=== PATIENT | male | born 1960 | race Caucasian/White ===

== ENCOUNTER 2023-11-14 22:56 | Inpatient (IN) | payer OTHER, SELFPAY ==
[2023-11-14] VITALS (7 sets, daily range): BP systolic 105–158; BP diastolic 73–114
[2023-11-14 15:32] LABS: % Basophils 1.9 % (0-2); % Eosinophils 1.4 % (0-6); % Immature Granulocytes 0.3 % (0-0.5); % Lymphocytes 30.1 % (20.5-51.1); % Monocytes 13.1 % (1.7-9.3); % Neutrophils 53.2 % (42.2-75.2); Absolute Basophils 0.1 10^3/uL (0-0.2); Absolute Eosinophils 0.1 10^3/uL (0-0.7); Absolute Lymphocytes 1.7 10^3/uL (1.2-3.4); Absolute Monocytes 0.8 10^3/uL (0.1-0.6); Absolute Neutrophils 3.1 10^3/uL (1.4-6.5); Hematocrit 36.6 % (39.0-52.0); Hemoglobin 12.9 g/dL (13.0-18.0); Mean Corp Hgb Conc. 35.2 g/dL (33.0-37.0); Mean Corpuscular Hgb 34.6 pg (27.0-31.0); Mean Corpuscular Volume 98.1 fL (80.0-94.0); Mean Platelet Volume 8.9 fL (7.4-10.4); Nucleated Red Blood Cells % 0 % (-); Platelet Count 209 10^3/uL (130-400); Red Blood Cell Count 3.73 10^6/uL (4.70-6.10); Red Cell Dist. Width 13.4 % (11.5-14.5); White Blood Cell Count 5.7 10^3/uL (4.8-10.8)
[2023-11-14 15:51] LABS: ALT (SGPT) 58 U/L (0-50); AST (SGOT) 106 U/L (17-59); Albumin 4.7 g/dl (3.5-5.0); Alkaline Phosphatase 93 U/L (38-126); Blood Urea Nitrogen 7 mg/dl (9-20); Calcium 9.2 mg/dl (8.4-10.2); Carbon Dioxide 18 mmol/L (22-30); Chloride 105 mmol/L (98-107); Glucose 161 mg/dl (70-99); Potassium 3.9 mmol/L (3.5-5.1); Sodium 144 mmol/L (135-145); Total Bilirubin 0.5 mg/dl (0.2-1.3); Total Protein 8.3 g/dl (6.3-8.2); eGFR > 60.00
[2023-11-14 16:32] LABS: Alcohol 429 mg/dl
--- NOTE | 2023-11-14 17:02 | ED.GENMED ---
History of Present Illness
General
Chief Complaint: Alcohol Problem
Source: patient and family
Exam Limitations: none
Time Seen by Provider: 11/14/23 16:49
Nursing documentation reviewed up to this point in time: agreed with
History of Present Illness
History of Present Illness:
63 yo male presents emergency department due to alcohol abuse. He is getting evicted from his apartment today, and has been drinking more to cope with stress. He is a chronic alcoholic. He arrives with his brother. He also complains of chronic
back pain.
Past History
Past History
ED Past Medical History: Psychiatric (anxiety)
ED Past Surgical History: None
Social History
Tobacco: Smoker (cigars)
Alcohol: Occasional
Drug: Marijuana
Living: with family
Review of Systems
Review of Systems
Allergies reviewed?: Yes
All Other Systems: Not applicable
Constitutional: Reports no symptoms
EENT: Reports no symptoms
Respiratory: Reports no symptoms
Cardiac: Reports no symptoms
ABD/GI: Reports no symptoms
: Reports no symptoms
Musculoskeletal: Reports back pain
Skin: Reports no symptoms
Neurological: Reports no symptoms
Endocrine: Reports no symptoms
Hematologic/Lymphatic: Reports no symptoms
Psychiatric: Reports anxiety
Phy Exam
Physical Exam
Physical Exam:
Physical Exam
General: Intoxicated, afebrile
Neck: supple. no meningeal signs. normal posterior pharynx
Heart: s1/s2 regular rate and rhythm, no murmur. equal radial
pulses.
HEENT: Pupils equal round reactive to light, EOMI
Lungs: no acute respiratory distress. clear bilaterally
Abdomen: normal bowel sounds. not tender. no CVAT
Neuro: alert and oriented. no focal neurological deficits cranial nerves II through XII intact
Skin: no rash
Psychiatric: well kept. interactive and cooperative
Extremities: no edema. no calf tenderness. negative homans. good distal pulses
Scores
Withdrawal Assessment of Alcohol
Withdrawal Assessment Completed?: Yes
Nausea and Vomiting: No nausea and no vomiting
Tactile Disturbances: Very mild itching, pins and needles, burning or numbness
Tremor: Moderate, with patient's arms extended
Auditory Disturbances: Not present
Paroxysmal Sweats: No sweat visible
Visual Disturbances: Not present
Anxiety: Moderately anxious, or guarded, so anxiety is inferred
Headache, Fullness in Head: Not present
Agitation: Moderately fidgety and restless
Orientation and clouding of sensorium: Oriented and can do serial additions
Total CIWA Score: 13
Alcohol Withdrawal Medication Recommendation: Equal to MSAS Score 5-7. Lorazepam 1mg IV or PO NOW & re-assess q2hrs
Course
Orders/Labs/Results
Orders:
Orders
11/14/23 15:22
Alcohol Urgent
CBC/With Diff [Complete Blood Count/With Diff] Urgent
CMP [Comprehensive Metabolic Panel] Urgent
11/14/23 17:07
Ketorolac [Toradol] 15 mg IV NOW STA
11/14/23 17:09
0.9% Sodium Chloride 1000 ml [Nss] 1,000 ml IV BOLUS
11/14/23 19:35
Lorazepam [Ativan] 1 mg IV NOW STA
11/14/23 21:26
CT Head W/o Iv Contrast Urgent
Comment:
Reason For Exam: falls
11/14/23 22:45
Admit/Transfer Patient As Directed
Co-Sign Provider:
Level of Care: Inpatient admission
Assign to:: Telemetry
Physician / Group: Alida
Diagnosis: Alcohol Withdrawal
Reason for Telemetry: Arrhythmia
Date to Stop Telemetry: 11/17/23
Time to Stop Telemetry: 11:00
Reason for Hospitalization: IVFs, alcohol withdrawal protocol
Expected length of stay greater than two midnights?: Yes
ELOS- Estimated Length of Stay in days: 3
I certify the patient meets the requirements for IP care: Yes
Code Status As Directed
Resuscitation Status: Full Code
PRN Pain Medication Management As Directed
May give lesser potent ordered pain med per pt: Yes
preference::
Protocol:: Medication orders for pain may be administered in a
manner that supports deferring to patient preference
when the pt is:
- Requesting an ordered lesser potent pain medication.
Least to most potent pain medications are defined
as: acetaminophen < NSAID < tramadol < opioids
(morphine, oxycodone, hydromorphone).
- Requesting a lesser dose of the same medication IF
ORDERED.
- Requesting a less intrusive route of administration
if both routes are prescribed by the provider (PO <
IV).
11/17/23 11:00
DC Protocol for Telemetry ONCE
Abnormal Lab Results
11/14/23
15:22
RBC 3.73 L 10^6/uL
(4.70-6.10)
Hgb 12.9 L g/dL
(13.0-18.0)
Hct 36.6 L %
(39.0-52.0)
MCV 98.1 H fL
(80.0-94.0)
MCH 34.6 H pg
(27.0-31.0)
Absolute Monos (auto) 0.8 H 10^3/uL
(0.1-0.6)
Monocytes % 13.1 H %
(1.7-9.3)
Carbon Dioxide 18 L mmol/L
(22-30)
BUN 7 L mg/dl
(9-20)
Glucose 161 H mg/dl
(70-99)
AST 106 H U/L
(17-59)
ALT 58 H U/L
(0-50)
Total Protein 8.3 H g/dl
(6.3-8.2)
Alcohol, Quantitative 429 H* mg/dl
11/14/23 15:22
11/14/23 15:22
Vital Signs
Initial and Last Documented VS:
Initial Vital Signs
Temp Pulse Resp BP Pulse Ox
98.5 F 114 19 148/114 98
11/14/23 15:07 11/14/23 15:07 11/14/23 15:07 11/14/23 15:07 11/14/23 15:07
Last Documented Vital Signs
Temp Pulse Resp BP Pulse Ox
98.5 F 0 18 115/91 93
11/14/23 15:07 11/14/23 20:45 11/14/23 20:15 11/14/23 21:00 11/14/23 21:45
MDM/Problems Addressed
Differential Diagnosis Includes:
Alcohol withdrawal, head injury
MDM/Problems Addressed:
63-year-old male with alcohol intoxication high risk for alcohol withdrawal. Admit to hospitalist.
*Pulse Oximetry
Patient hypoxic: no
*Dumpster Operator Interpretation
Rate: normal
Interpretation: normal
Heart Rate: 92
Rhythm: sinus
*Critical Care Note
Total Time (30-74mins, 75-104mins- exclusive of procedures): Not Applicable
Patient Management
Social determinants of health affecting care: Living situation and Substance abuse
Discussion with other providers: Hospitalist
Escalation/DeEscalation of care consider admission/obs:
Admit indicated
ED Attending Note
-
Portions of this chart may have been created with voice recognition software.� Occasional wrong word or��sound alike� substitutions may have occurred due to the inherent limitations of voice recognition software.
Discharge Plan
Departure
Patient Disposition: Admit
Date of Disposition: 11/14/23
Time of Disposition: 22:29
Admit to: IMU
Presentation/result/management discussed w/ accepting MD/DO: Hospitalist
Patient with high blood pressure during this ER visit?: Yes
Condition: Fair
Discharge Problem:
Alcohol intoxication, Adult failure to thrive
Prescriptions:
No Action
diazepam 5 MG tablet
5 mg PO TIDPRN PRN (Reason: muscle spasm) Qty: 12 0RF
Referrals:
NONE,* [Family Provider] -
Interventions
Interventions:
*Risk Screen - Suicide Last Done: 11/14/23 15:07
*General Assessment Last Done: 11/14/23 15:07
*Neglect/Abuse Screening Last Done: 11/14/23 19:26
*ED COVID-19 Vaccine History Last Done: 11/14/23 19:26
ED- Neurological Assessment Last Done: 11/14/23 19:26
ED-Psychological Assessment Last Done: 11/14/23 19:26
Discharge Date and Time
Print Language: KINYARWANDA
[2023-11-14] MEDS: TORADOL 15 MG IV (17:18)
[2023-11-14] MEDS: NSS 1000 IV (17:19)
[2023-11-14] MEDS: ATIVAN 1 MG IV (19:43)
--- NOTE | 2023-11-14 22:50 | EDRN ---
false read for pulse
--- NOTE | 2023-11-14 23:05 | HPS.HSE ---
Family Physician
-
Family Physician: * NONE
Chief Complaint
-
Alcohol Problem
History of Present Illness
Pt is a 63 yo M with H alcohol use disorder and anxiety who presents for alcohol use disorder. Pt admits to accelerated drinking over the past month to cope with stress and manage anxiety. He admits to 6-8 beers (8.0% ABV) Daily +/- bottles of
[place] for the past 2-3 years. He reports frequent withdrawal symptoms that start around 3 AM whic prompt him to get up to have a drink. He admits to tinnitus and 'hearing songs in head' throughout the day. He states his last drink was around
12PM today. Pt also reports he was evicted from apartment today. Brother states he was with the pt last night to help pack and the pt does not recall events from yesterday. Patient has never been to alcohol rehab before and denies prior attempt to
quit.
Medical History
Past Medical History
Past Medical History: Reports Other
Additional Past Medical History:
Anxiety
Alcohol Use Disorder
Past Surgical History: Reports None
Social History
Tobacco: Other (Occasional Cigarette)
Alcohol: Daily (6-8 8% ABV Beers per day, plus additional moonshine)
Drug: Marijuana (Daily)
Living: Other (Patient recently evicted from his apartment)
Family History
Family History: Not pertinent
Allergies / Home Medications
Allergies reflects when Allergies were last updated in [facility] app.
Home Medications with original date entered in [facility] app
Allergy/Medication List:
Allergies
Allergy/AdvReac Type Severity Reaction Status Date / Time
No Known Allergies Allergy Verified 11/14/23 15:10
Home Medications
No Meds [No Current Medications] 11/14/23
Review of Systems
-
Unable to obtain full review of systems at this time due to: Acuity
Physical Exam
Vital Signs
Vital Signs
Temp Pulse Resp BP Pulse Ox
98.5 F 83 18 115/91 93
11/14/23 15:07 11/14/23 22:50 11/14/23 20:15 11/14/23 21:00 11/14/23 21:45
Physical Exam
General: Conversant and Other (Appears unkempt )
HEENT: Anicteric, Moist mucous membranes and Other (Poor dentition)
Respiratory: Clear and Non Labored Respirations
Cardiac: S1/S2 and Regular Rhythm
GI: Soft and Non Tender
Rectal: Deferred by Provider
Musculoskeletal: No Clubbing, No Cyanosis and No Edema
Skin: Warm and Dry
Neuro: Awake, Alert, Oriented, No Motor Deficits and Tremors
Psych: Calm
Laboratory Results
-
11/14/23 15:22
11/14/23 15:22
Laboratory Results
Total Bilirubin 0.5 mg/dl (0.2-1.3) 11/14/23 15:22
AST 106 U/L (17-59) H 11/14/23 15:22
ALT 58 U/L (0-50) H 11/14/23 15:22
Alkaline Phosphatase 93 U/L (38-126) 11/14/23 15:22
Data Reviewed
-
Lab Data: Labs Reviewed by me
Impression/Plan
-
Alcohol Use Disorder / Alcohol Withdrawal Syndrome
-Patient reports prior episodes of delirium tremens and withdrawal seizures
-Admit to ICU for close monitoring and high risk of severe withdrawal symptoms
-Monitor MSAS
-Continue phenobarbital taper
-Continue Ativan prn
-Continue thiamine and folic acid
DVT proph: Lovenox
Code Status: Full Code
--- NOTE | 2023-11-14 23:32 | W.PN.UPDATE ---
Update Note
Progress Note Update
This is an addendum to the H&P written by Mary Payne on 11/14/2023. Patient seen and examined independently with PA.
63-year-old male past medical history of alcohol use disorder, alcohol withdrawal seizures, anxiety here for heavy alcohol use and signs of alcohol withdrawal. Alcohol level 429. Very high risk for DT. IV fluids, thiamine and folate, alcohol
withdrawal protocol, phenobarbital protocol.
[2023-11-14] MEDS: PHENOBARBITAL 104 MG IV (23:48)
[2023-11-15] VITALS (29 sets, daily range): BP systolic 111–174; BP diastolic 78–104
[2023-11-15] MEDS: ATIVAN 1 MG PO ×2 (02:21→06:09)
[2023-11-15] MEDS: NSS 1000 IV ×3 (02:30→22:57)
--- NOTE | 2023-11-15 02:30 | PTCARENOTE ---
Received pt from the ED; pt AAOx3, but forgetful and participates in confused conversation. Pt states he knows he is at [facility] but does not know why. Pt is visibly anxious/tearful/restless. Emotional support provided. NSR on the
monitor, HR 80's, lungs clear, SpO2 96% on RA. Remainder of assessment as documented. MSAS complete per protocol, PRN Ativan given per order, see MAR. Admission completed, pt admits to methamphetamine and cocaine use within the last month, COWS
complete with a score of 13, DIGITAL BUSINESS ANALYST notified. Pt scored moderate risk on suicide screening; pt reports suicidal with a plan, states his plan is 'spontaneity; whatever I can get my hands on at the time'. Pt states he is in a very low place, is in the
process of being evicted from his apartment and has been drinking more to cope with the stressors in his life, admits active SI. DIGITAL BUSINESS ANALYST and nursing supervisor plate pasting notified, 1:1 initiated. Pt oriented to unit, call sinha and purpose of 1:1 sitter[address] Bed alarm
in place for safety. Pt resting comfortably at this time with intermittent periods of restlessness.
[2023-11-15] MEDS: ATIVAN 2 MG IV ×7 (04:11→21:08)
[2023-11-15] MEDS: NSS (PRESERVATIVE FREE) 1 ML IV ×5 (04:12→16:47)
--- NOTE | 2023-11-15 04:28 | PTCARENOTE ---
Pt restless in bed tugging at the gown. When offered assistance pt states he has to go to the bathroom. Pt assist x1 to bedside commode, +urination and diarrhea. Pt with incontinent stool to underwear/pants. Hygiene performed. Upon getting back in
bed, MSAS score 12, PRN Ativan per protocol, see MAR.
[2023-11-15 05:04] LABS: Hematocrit 32.3 % (39.0-52.0); Hemoglobin 11.3 g/dL (13.0-18.0); Mean Corpuscular Hgb 34.7 pg (27.0-31.0); Mean Corpuscular Volume 99.1 fL (80.0-94.0); Mean Platelet Volume 9.3 fL (7.4-10.4); Platelet Count 178 10^3/uL (130-400); Red Blood Cell Count 3.26 10^6/uL (4.70-6.10); Red Cell Dist. Width 13.4 % (11.5-14.5); White Blood Cell Count 6.1 10^3/uL (4.8-10.8)
[2023-11-15 05:14] LABS: INR 1.13; PT 14.3 Sec (11.4-14.6)
[2023-11-15 05:15] LABS: APTT 31.4 Sec (23.4-35.0)
[2023-11-15 06:33] LABS: ALT (SGPT) 50 U/L (0-50); AST (SGOT) 73 U/L (17-59); Albumin 4.2 g/dl (3.5-5.0); Alkaline Phosphatase 87 U/L (38-126); Blood Urea Nitrogen 6 mg/dl (9-20); Calcium 8.3 mg/dl (8.4-10.2); Carbon Dioxide 23 mmol/L (22-30); Chloride 107 mmol/L (98-107); GGTP 263 U/L (15-73); Glucose 90 mg/dl (70-99); Magnesium 1.5 mg/dl (1.6-2.3); Phosphorus 3.1 mg/dl (2.5-4.5); Potassium 3.8 mmol/L (3.5-5.1); Sodium 142 mmol/L (135-145); Total Protein 7.5 g/dl (6.3-8.2); eGFR > 60.00
[2023-11-15] MEDS: ATIVAN 1 MG IV ×6 (07:13→23:28)
[2023-11-15] MEDS: PHENOBARBITAL 97.5 MG IV ×3 (07:15→20:21)
[2023-11-15] MEDS: THIAMINE INJECTION 200 MG IV ×2 (07:17→20:25)
[2023-11-15] MEDS: FOLVITE 1 MG PO (07:18)
--- NOTE | 2023-11-15 07:21 | PTCARENOTE ---
06:45 patient seen in bed . MSAS 11 RASS +1 /restless. BP via left upper arm 158/101 SR 81 RR 22 96% RA . Denies pain . c/o of nausea. Ativan per protocol for MSAS 11 adm . 1:[address] for pt's safety
--- NOTE | 2023-11-15 07:31 | W.PN.HOSP.TC ---
Addendum entered and electronically signed by Kayleigh Raymond MD 11/15/23 08:32:
Pt on one to one due to suicide ideation.
Psych CS placed for suicide ideation.
Original Note:
Today's Communication/Plan
-
see A/P
Assessment / Plan
Assessment / Plan
HPI: 63 yo M with PMH alcohol use disorder and anxiety who presented for alcohol use disorder. Pt admited to accelerated drinking over the past month to cope with stress and manage anxiety (6-8 beers 8.0% ABV Daily +/- bottles of [place] for the
past 2-3 years). He reported frequent withdrawal symptoms which prompted him to get up to have a drink. He admitted to tinnitus and 'hearing songs in head' throughout the day.
Last drink was around 12PM of DOA. Pt was evicted from his apartment on [place]A.
Patient has never been to alcohol rehab before and denies prior attempt to quit.
A/P:
# Alcohol Use Disorder / Alcohol Withdrawal Syndrome/ development of delirium tremens
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
# h/o prior episodes of delirium tremens and withdrawal seizures
Alcohol level 400 on admission
Monitor MSAS with Ativan prn, cont phenobarbital taper
Continue thiamine and folic acid
Monitor in ICU
CS to facilitate warm handoff (alcohol counselling) CS
# Hypomagnesemia
replete lyte
# Dilutional anemia
DVT proph: Lovenox
Code Status: Full Code
DW RN
Anticipated Discharge: > 48 hours
Subjective/Interval History
-
Date of Service: November 15, 2023
Objective Data
-
Labs:
Laboratory Results
11/15/23 11/15/23
04:41 05:59
WBC 6.1
Hgb 11.3 L
Hct 32.3 L
Plt Count 178
PT 14.3
INR 1.13
APTT 31.4
Sodium Cancelled 142
Potassium Cancelled 3.8
Chloride Cancelled 107
Carbon Dioxide Cancelled 23
BUN Cancelled 6 L
Creatinine Cancelled 0.7
Glucose Cancelled 90
Calcium Cancelled 8.3 L
Total Bilirubin Cancelled 1.0
AST Cancelled 73 H
ALT Cancelled 50
Alkaline Phosphatase Cancelled 87
Vital Signs:
Vital Signs
Temp Pulse Resp BP Pulse Ox
36.9 C 87 17 174/99 93
11/15/23 03:10 11/15/23 06:15 11/15/23 06:15 11/15/23 06:02 11/15/23 06:15
I&O
11/14/23 11/15/23 11/16/23
06:59 06:59 06:59
Intake Total 470 / 470
Balance 470 / 470
Review of Systems
-
Unable to obtain full review of systems at this time due to: Acuity
Physical Exam
-
General: Well Developed, Well Nourished, No Apparent Distress and Comfortable; Negative Respiratory Distress
HEENT: Normocephalic, Atraumatic, Nose Appears Normal and Ears Appear Normal; Negative Oxygen
Respiratory: Clear to Auscultation and Non Labored Respirations; Negative Accessory Resp Muscle Use
Cardiac: Regular Rhythm and S1/S2
GI: Soft, Nontender, Nondistended and Normal Bowel Sounds
Skin: Warm and Dry
Neuro: Negative Awake (drowsy due to ativan given)
Psych: Calm
Data Reviewed
-
CT Scan: Report Reviewed by me
Labs: Labs Reviewed by me
[2023-11-15] MEDS: MAGNESIUM SULFATE 50 IV (08:33)
--- NOTE | 2023-11-15 08:51 | CON.INTV ---
Consultation
Consultation Request
Date/Time Consultation Requested: 11/15/2023207
Date/Time Consultation Performed: 11/15/2023846
Requesting Provider: RBITNEY Prabhakar
Performing Provider: Nikita Leach MD
Reason for Consultation: EtOH withdrawal
Medical History
-
Chief Complaint: Alcohol abuse/withdrawal
History of Present Illness:
63-year-old male occasional tobacco smoker with a past medical history of chronic alcoholism, chronic diarrhea, anxiety/depression and history of Lyme disease who presents with family for alcohol detoxification. He admits to increasing alcohol use
over the last month to cope with stress/anxiety. Drinks 6�8 beers per day in addition to moonshine for the last several years. Admits to feeling withdrawal symptoms in the middle the night which prompted him to drink. He was evicted from his
apartment on the day of hospital admission. 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 In the ER he was afebrile to 98.5 �F, tachycardic to 114 bpm, tachypneic at 19-26 breaths/min, BP 148/114 and saturating 98% on room air. Alcohol level was 429. Labs also
showed serum bicarbonate level 18, glucose 161, AST 106, and ALT 58. Initial CT head showed no acute intracranial abnormality. He was given Toradol in the ER + Ativan and 1 L NS 0.9% x1L. Given his tachycardia with concern for severe alcoholic
withdrawal, he was admitted to the ICU for further care, and critical care services consulted for additional management/recommendations.
When I saw the patient this morning, he was in bed, shaky, but answering questions appropriately. MSAS is 11 this morning. He is on room air breathing comfortably, saturating 94%. Heart rate 89. BP 140/97. He denies chest pain, shortness of
breath or abdominal pain.
PMHx: Chronic alcoholism, history of insomnia, history of Lyme disease, hypertension, anxiety/depression, chronic diarrhea
PSHx: Noncontributory
Past Medical History
Past Medical History: Other (Above as per HPI)
Past Surgical History: Other (Above as per HPI)
Social History
Tobacco: Smoker (Smokes 1-2 cigarettes occasionally)
Alcohol: Chronic Alcoholic (6-8 beers per day)
Drug: None
Living: Alone
Employment: Employed ([employer] - part-time)
Family History
Family History: Diabetes (Mother)
Allergies / Home Medications
Allergies
Allergy/AdvReac Type Severity Reaction Status Date / Time
No Known Allergies Allergy Verified 11/14/23 15:10
Home Medications
�Medication �Instructions �Recorded �Confirmed �Last Taken �Type
No Meds [No Current Medications] 11/14/23 11/14/23 Unknown History
Review of Systems
-
History Source: Patient
All other systems: Negative unless noted
Vitals / Labs / Diagnostic Testing
Vital Signs
Temp Pulse Resp BP Pulse Ox
98.0 F 87 17 174/99 93
11/15/23 08:00 11/15/23 06:15 11/15/23 06:15 11/15/23 06:02 11/15/23 06:15
Lab Data
11/15/23 04:41
11/15/23 05:59
Laboratory Results
11/15/23
04:41
PT 14.3
INR 1.13
APTT 31.4
Diagnostic Testing:
Physical Exam
-
HEENT: Normocephalic and Anicteric
Cardiovascular: S1/S2 and Peripheral Edema (negative)
Respiratory: Wheeze (negative), Rales (negative), Rhonchi (negative) and Non-Labored Respirations
GI: Soft, Non Distended, Non Tender and Normal Bowel Sounds
Neurology: Awake, Alert, Tremors (positive mainly in upper body/arms) and Other
Skin: Warm and Dry
General: Respiratory Distress (negative), Chills (negative) and Sweats (negative)
Assessment
-
Assessment: 63-year-old male occasional tobacco smoker with a past medical history of chronic alcoholism, chronic diarrhea, anxiety/depression and history of Lyme disease who presents with family for alcohol detoxification. He admits to increasing
alcohol use over the last month to cope with stress/anxiety. Drinks 6�8 beers per day in addition to moonshine for the last several years. Admits to feeling withdrawal symptoms in the middle the night which prompted him to drink. He was evicted
from his apartment on the day of hospital admission. 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 In the ER he was afebrile to 98.5 �F, tachycardic to 114 bpm, tachypneic at 19-26 breaths/min, BP 148/114 and saturating 98% on room air. Alcohol level was 429. Labs
also showed serum bicarbonate level 18, glucose 161, AST 106, and ALT 58. Initial CT head showed no acute intracranial abnormality. He was given Toradol in the ER + Ativan and 1 L NS 0.9% x1L. Given his tachycardia with concern for severe
alcoholic withdrawal, he was admitted to the ICU for further care, and critical care services consulted for additional management/recommendations.
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
Impression:
#Chronic alcoholism with acute alcoholic withdrawal (BAL: 429 on admission)
#Hypomagnesemia
#Transaminitis likely due to alcohol abuse
#Anemia
#Tobacco use disorder
#History of hypertension
Plan:
- MSAS with phenobarbital protocol
- prn ativan
- Thiamine + folate/MVN
- IVF with NS 0.9% at 100cc/hr --> can DC this once he is tolerating PO diet
- Trend LFTs
- If he becomes agitated then start Precedex gtt
- Nicotine patch
- Maintain SpO2 >90-94%
- Maintain MAP>65
- Replete electrolytes with K>4, Mg>2
- Maintain euglycemia with goal BG 140-180
- prn nebulized bronchodilators � not currently bronchospastic
- Incentive spirometer encouraged
- DVT ppx: LMWH
Continue ICU level care.
Critical care statement: A total of 40 minutes of critical care time was provided for this patient today. This includes management of unstable vital signs, evaluation of the patient at bedside, reviewing the patient's pertinent medical records
including radiographs, microbiology, laboratory evaluations, and discussion with primary team, consultants, pharmacy, nutrition, physical therapy, case management, charge nurse, critical care nursing, and respiratory therapy.
Data:
CT head 11/14/2023: No evidence of acute intracranial abnormality.
--- NOTE | 2023-11-15 12:07 | CM ---
CM reviewed medical records. CM attempted to meet with patient. Patient was sleeping and difficult to arouse. As per review of medical record, patient presented to emergency room after being evicted from his apartment. Patient reported increase use
of alcohol.
CM expressed suicidal ideations and is currently on a 1:1
CM will continue to follow.
--- NOTE | 2023-11-15 14:41 | PTCARENOTE ---
MSAS 11 Ativan adm per PRN order . Visible tremors . pt AAO x3 Denies pain and nausea. Denies to having suicidal thoughts bed alarm activated for pt's safety
--- NOTE | 2023-11-15 16:30 | W.PN.UPDATE ---
Update Note
Progress Note Update
Psychiatry consulted for concerns of possible depression & SI - pt seen at bedside. Pt w/ hx of EtOH abuse and in withdrawal currently - MSAS 11 and on phenobarb taper started this AM, received several doses of PRN ativan throughout the day. Is not
meaningfully arousable though did recently receive a prn ativan dose.
Spoke to nursing - pt has had times of lucidity, did admit to etoh abuse and feeling down due to living alone and struggling with his addiction to EtOH. Made a statement phil to slowly killing himself with substances, however did not make statements
of acute suicidal plans or intent - has been cooperative thus far while here (when awake and more lucid).
Will need to be reassessed when more awake and lucid - discontinued 1:1 as pt is being monitored regularly while in unit and did not seem to give indication of acute suicidal intent, he is also in the early stages of EtOH w/d and requiring prn
ativan which is contributing to sedation so he is unlikely to meaningfully be a suicide risk at this current time
- once able to converse, will reassess for presence of SI/depression
[2023-11-15] MEDS: LOVENOX 40 MG SC (16:47)
[2023-11-15] MEDS: NICODERM TRANSDERMAL 7 MG TRANSDERM (18:05)
--- NOTE | 2023-11-15 20:00 | PTCARENOTE ---
rec`d pt at 1900. pt trying to climb out of bed. PRN ativan given. restraints then ordered. pt awake and oriented to location and name. MSAS continued. ST on monitor. POX 98% RA. incontinent an urine and BM, condom cath on pt. Ivs had to be
replaced. NS @ 100. safe environment maintained.
[2023-11-16] VITALS (15 sets, daily range): BP systolic 123–163; BP diastolic 82–125
[2023-11-16 04:26] LABS: Hemoglobin 13.5 g/dL (13.0-18.0); Mean Corp Hgb Conc. 35.5 g/dL (33.0-37.0); Mean Corpuscular Hgb 34.7 pg (27.0-31.0); Mean Corpuscular Volume 97.7 fL (80.0-94.0); Mean Platelet Volume 9.2 fL (7.4-10.4); Platelet Count 170 10^3/uL (130-400); Red Blood Cell Count 3.89 10^6/uL (4.70-6.10); Red Cell Dist. Width 12.5 % (11.5-14.5); White Blood Cell Count 7.7 10^3/uL (4.8-10.8)
[2023-11-16 04:45] LABS: ALT (SGPT) 47 U/L (0-50); AST (SGOT) 68 U/L (17-59); Albumin 4.3 g/dl (3.5-5.0); Alkaline Phosphatase 92 U/L (38-126); Blood Urea Nitrogen 5 mg/dl (9-20); Calcium 8.8 mg/dl (8.4-10.2); Carbon Dioxide 22 mmol/L (22-30); Chloride 102 mmol/L (98-107); Glucose 103 mg/dl (70-99); Magnesium 1.9 mg/dl (1.6-2.3); Potassium 3.5 mmol/L (3.5-5.1); Sodium 136 mmol/L (135-145); Total Bilirubin 1.7 mg/dl (0.2-1.3); eGFR > 60.00
[2023-11-16] MEDS: KCL 160 MEQ IV (06:26)
--- NOTE | 2023-11-16 07:37 | W.PN.HOSP.TC ---
Today's Communication/Plan
-
see A/P
Assessment / Plan
Assessment / Plan
HPI: 63 yo M with H alcohol use disorder and anxiety who presented for alcohol use disorder. Pt admitted to accelerated drinking over the past month to cope with stress and manage anxiety (6-8 beers 8.0% ABV Daily +/- bottles of [place] for the
past 2-3 years). He reported frequent withdrawal symptoms which prompted him to get up to have a drink. He admitted to tinnitus and 'hearing songs in head' throughout the day.
Last drink was around 12PM of DOA. Pt was evicted from his apartment on DOA.
Patient has never been to alcohol rehab before and denies prior attempt to quit.
A/P:
# Alcohol Use Disorder / Alcohol Withdrawal Syndrome/ Delirium tremens
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
# h/o prior episodes of delirium tremens and withdrawal seizures
CT head on admission showed No evidence of acute intracranial abnormality.
Alcohol level 400 on admission
Monitor MSAS with Ativan prn, cont phenobarbital taper
Continue thiamine and folic acid, cont IVF
NPO for now due to delirium, restraint PRN
Monitor in ICU
CS to facilitate warm handoff (alcohol counselling) CS when pt more awake
# Hypomagnesemia
replete lyte
# Dilutional anemia
DVT proph: Lovenox
Code Status: Full Code
DW RN
Anticipated Discharge: > 48 hours
Subjective/Interval History
-
Date of Service: November 16, 2023
Objective Data
-
Labs:
Laboratory Results
11/16/23
04:13
WBC 7.7
Hgb 13.5
Hct 38.0 L
Plt Count 170
Sodium 136
Potassium 3.5
Chloride 102
Carbon Dioxide 22
BUN 5 L
Creatinine 0.5 L
Glucose 103 H
Calcium 8.8
Total Bilirubin 1.7 H
AST 68 H
ALT 47
Alkaline Phosphatase 92
Vital Signs:
Vital Signs
Temp Pulse Resp BP Pulse Ox
37.0 C 92 21 125/101 98
11/16/23 03:11 11/16/23 06:15 11/16/23 06:15 11/16/23 06:00 11/16/23 06:15
I&O
11/15/23 11/16/23 11/17/23
06:59 06:59 06:59
Intake Total 470 / 570 2450 / 2450
Output Total 1850 / 1850
Balance 470 / 570 600 / 600
Review of Systems
-
Unable to obtain full review of systems at this time due to: Acuity
Physical Exam
-
General: Well Developed, Well Nourished, No Apparent Distress and Comfortable; Negative Respiratory Distress
HEENT: Normocephalic, Atraumatic, Nose Appears Normal and Ears Appear Normal; Negative Oxygen
Respiratory: Clear to Auscultation and Non Labored Respirations; Negative Accessory Resp Muscle Use
Cardiac: Regular Rhythm and S1/S2
GI: Soft, Nontender, Nondistended and Normal Bowel Sounds
Skin: Warm and Dry
Neuro: Negative Awake (drowsy)
Psych: Calm; Negative Intact Judgement/Insight
Data Reviewed
-
CT Scan: Report Reviewed by me
Labs: Labs Reviewed by me
--- NOTE | 2023-11-16 08:22 | W.PN.INTV ---
Today's Communication / Plan
Recommendations
4 point restraints, reducing to 2 point once patient is calm for at least 6-12 hours
MSAS with prn Ativan + phenobarbital protocol
Aspiration precautions keeping HOB >30-45�
IVF, however if patient continues to not be able to start PO tomorrow, then would insert DHT and start tube feeds
Folate/thiamine
Continue ICU level of care; pt with low threshold to start precedex
Assessment
-
Assessment: 63-year-old male occasional tobacco smoker with a past medical history of chronic alcoholism, chronic diarrhea, anxiety/depression and history of Lyme disease who presents with family for alcohol detoxification. He admits to increasing
alcohol use over the last month to cope with stress/anxiety. Drinks 6�8 beers per day in addition to moonshine for the last several years. Admits to feeling withdrawal symptoms in the middle the night which prompted him to drink. He was evicted
from his apartment on the day of hospital admission. 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 In the ER he was afebrile to 98.5 �F, tachycardic to 114 bpm, tachypneic at 19-26 breaths/min, BP 148/114 and saturating 98% on room air. Alcohol level was 429. Labs
also showed serum bicarbonate level 18, glucose 161, AST 106, and ALT 58. Initial CT head showed no acute intracranial abnormality. He was given Toradol in the ER + Ativan and 1 L NS 0.9% x1L. Given his tachycardia with concern for severe
alcoholic withdrawal, he was admitted to the ICU for further care, and critical care services consulted for additional management/recommendations.
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
Impression:
#Chronic alcoholism with acute alcoholic withdrawal (BAL: 429 on admission)
#Hypomagnesemia
#Transaminitis likely due to alcohol abuse
#Anemia
#Tobacco use disorder
#History of hypertension
Plan:
- MSAS with phenobarbital protocol
- prn ativan
- Thiamine + folate/MVN
- IVF with NS 0.9% at 100cc/hr --> can DC this once he is tolerating PO diet
- Trend LFTs
- If he becomes agitated then start Precedex gtt
- Nicotine patch
- Start Seroquel at night given he became agitated last night, requiring additional Ativan
- Continue 4 point restraints and reduce to 2 point restraints once nursing staff feels comfortable with his behavior and do not feel threatened
- Maintain SpO2 >90-94%
- Maintain MAP>65
- Replete electrolytes with K>4, Mg>2
- Maintain euglycemia with goal BG 140-180
- prn nebulized bronchodilators � not currently bronchospastic
- Incentive spirometer encouraged
- DVT ppx: LMWH
Continue ICU level care.
Critical care statement: A total of 37 minutes of critical care time was provided for this patient today. This includes management of unstable vital signs, evaluation of the patient at bedside, reviewing the patient's pertinent medical records
including radiographs, microbiology, laboratory evaluations, and discussion with primary team, consultants, pharmacy, nutrition, physical therapy, case management, charge nurse, critical care nursing, and respiratory therapy.
Data:
CT head 11/14/2023: No evidence of acute intracranial abnormality.
Subjective Dataa
Subjective Data
Date of Service:
Date of Service: November 16, 2023
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
Subjective:
Patient was seen and evaluated today at bedside. Reportedly became very agitated overnight, and is now on 4 point restraints. Currently appears sedated after getting multiple doses of Ativan overnight. Current heart rate 86, saturating 99% on
room air and BP 132/97. He was responsive to verbal and tactile stimuli but not answering questions.
Review of Systems
General: Other (Unable to obtain due to acute clinical status/patient is noncommunicating)
Objective Data
Data Reviewed
Vital Signs / I&O / Oxygen:
Vital Signs
Temp Pulse Resp BP Pulse Ox
96.6 F L 93 17 130/102 100
11/16/23 09:07 11/16/23 09:30 11/16/23 09:30 11/16/23 09:00 11/16/23 09:30
Intake and Output
11/15/23 11/16/23 11/17/23
06:59 06:59 06:59
Intake Total 470 / 570 2450 / 2550 400 / 400
Output Total 1850 / 1850 350 / 350
Balance 470 / 570 600 / 700 50 / 50
SaO2 100
Physical Exam
General: Respiratory Distress (negative), Comfortable, Chills (negative) and Sweats (negative)
HEENT: Normocephalic and Anicteric
Cardiovascular: S1-S2 and Peripheral Edema (negative)
Respiratory: Wheeze (negative), Crackles (negative), Rhonchi (negative) and Accessory Resp Muscle Use (negative)
GI: Soft, Non Distended, Non Tender and Normal Bowel Sounds
Neurology: Tremors (negative) and Unresponsive (Awakens to verbal/tactile stimuli but then falls back asleep)
Skin: Warm, Dry and Jaundice (negative)
Labs/Micro/Reports
Lab Data
11/16/23 04:13
11/16/23 04:13
[2023-11-16] MEDS: THIAMINE INJECTION 200 MG IV ×2 (09:12→20:17)
[2023-11-16] MEDS: PHENOBARBITAL 97.5 MG IV ×2 (09:13→15:24)
[2023-11-16] MEDS: NICODERM TRANSDERMAL 7 MG TRANSDERM (09:14)
[2023-11-16] MEDS: NSS 1000 IV ×2 (09:22→23:52)
--- NOTE | 2023-11-16 11:34 | W.PN.UPDATE ---
Update Note
Progress Note Update
Chart reviewed/ discussed pt status with nursing staff. Unable to speak to patient as he was not awake.
Acc to ICU nurse, pt became agiated lst night and tried to climb out of bed. Wa given Ativan and restraints were ordered. He has not voiced suicidal ideation when awake, acc to nurse.
Temp and BP are mildly elevated.
When I entered the room and called his name, pt briefly opened his eyes and said something, but immediately fell asleep again.
He is on alcohol withdrawal protocol- Phenobarb drip.
We will continue to follow.
[2023-11-16] MEDS: FOLVITE PO (12:28)
[2023-11-16] MEDS: FOLVITE 50.2 MG IV (12:28)
--- NOTE | 2023-11-16 14:45 | SUR.OPER ---
patient in bed. MSAS 4 RASS -1 VSS. Condom catheter draining clear vicente urine
[2023-11-16] MEDS: LOVENOX 40 MG SC (15:25)
--- NOTE | 2023-11-16 18:39 | PTCARENOTE ---
patient in bed. RASS -1 MSAS 4. VS stable . [address] HOB elevated
--- NOTE | 2023-11-16 19:45 | PTCARENOTE ---
Rec'd pt resting in bed, left facial droop noted, left sided weakness noted,slurred speech;unknown when last well time was due to pt lethargic today; NIH- 7, Inna Garcia NP in to assess pt, stat accu-83,
1949- Inna Garcia NP called neuro, stat CT ordered - to CT skan via bed on monitor accomp by self & Inna Garcia NP, after returned from CT scan stat phenobarb level drawn per order; per Inna Garcia NP- phenobarb on hold & seroquel dc'd
2049- Dr De Los Santos- neuro in to assess pt, at this time pts speech is less slurred, still has slight facial droop & left weaker than R
NSR, weak distal pulses, no edema, skin warm/slightly diaphoretic, RA, lungs decr in bases,sat 100, + bowel sounds, no bm, abd soft, npo, condom cath on- voiding yellow urine
[2023-11-16 20:01] LABS: Glucose - Point of Care 83 mg/dl (70-99)
--- NOTE | 2023-11-16 21:26 | W.PN.UPDATE ---
Update Note
Progress Note Update
1950- stroke alert called for left facial droop, slurred speech, drift left leg, needs multiple prompts to complete neurological assessment. NIH 7. Patient had received ativan due to agitation and MSAS last night and was 4 point restrainted due to
extreme agitation restlessness and flight risk/harm to himself. Today he had received phenobarb IV dosing 97.5mg IV TID last dose given at 1600 and was due to be given at 2[address]. [address] Pepe De Los Santos updated and concern with new left sided
facial droop and slurred speech, agreed with STAT ct scan of the head. Comptroller updated Dr. Leach. Patient transported to CTscan, radiologist preliminary report negative for acute intracranial abnormalities. Unclear when patient's last
normal, patient has been sedated throughout the day and difficult to assess. Dr. De Los Santos neurologist at bedside, concern for phenobarbital causing increased sedation. Patient speech more clear but still slurred, more awake, moving 4x extremities.
Will not initiate Seroquel this evening, will hold phenobarbital for now. Serum phenobarbital level send out lab, ordered. Cautious moving forward giving additional sedation.
--- NOTE | 2023-11-16 22:06 | PTCARENOTE ---
vital signs filed from 144 to now, unable to verify vs from 144 to 190
[2023-11-16] MEDS: LOPRESSOR 2.5 MG IV (22:13)
--- NOTE | 2023-11-16 22:14 | PTCARENOTE ---
lopressor 2.5 mg iv given for bp per order
--- NOTE | 2023-11-16 23:56 | PTCARENOTE ---
sys reviewed, oriented,following commands, speech slightly slurred, left side still weaker than R, CHG bath done, linens changed
[2023-11-17] VITALS (25 sets, daily range): BP systolic 112–157; BP diastolic 78–107; BMI 20.3
--- NOTE | 2023-11-17 01:35 | PTCARENOTE ---
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
[2023-11-17] MEDS: ATIVAN 1 MG IV ×3 (01:36→12:46)
[2023-11-17 03:30] LABS: Hematocrit 36.1 % (39.0-52.0); Hemoglobin 12.8 g/dL (13.0-18.0); Mean Corp Hgb Conc. 35.5 g/dL (33.0-37.0); Mean Corpuscular Hgb 34.3 pg (27.0-31.0); Mean Corpuscular Volume 96.8 fL (80.0-94.0); Mean Platelet Volume 9.7 fL (7.4-10.4); Platelet Count 170 10^3/uL (130-400); Red Blood Cell Count 3.73 10^6/uL (4.70-6.10); Red Cell Dist. Width 12.7 % (11.5-14.5)
[2023-11-17 03:52] LABS: ALT (SGPT) 40 U/L (0-50); AST (SGOT) 53 U/L (17-59); Alkaline Phosphatase 98 U/L (38-126); Blood Urea Nitrogen 8 mg/dl (9-20); Carbon Dioxide 15 mmol/L (22-30); Chloride 107 mmol/L (98-107); Glucose 89 mg/dl (70-99); Magnesium 1.8 mg/dl (1.6-2.3); Potassium 3.5 mmol/L (3.5-5.1); Sodium 139 mmol/L (135-145); Total Bilirubin 1.3 mg/dl (0.2-1.3); Total Protein 7.4 g/dl (6.3-8.2); eGFR > 60.00
--- NOTE | 2023-11-17 04:11 | PTCARENOTE ---
sys reviewed, speech not slurred, msas 5, trying to climb oob, Inna Garcia NP aware, ativan 1 mg ivm given
[2023-11-17] MEDS: MAGNESIUM SULFATE 102 GRAMS IV (04:29)
--- NOTE | 2023-11-17 04:30 | PTCARENOTE ---
1 gm mag sulfate hung over 1 hr per order
--- NOTE | 2023-11-17 08:22 | W.PN.HOSP.TC ---
Addendum entered and electronically signed by Jason Millan MD 11/17/23 15:25:
Acute alcohol use disorder with withdrawal. Continue thiamine folate CIWA protocol/minds score. Continue providing phenobarbital wean as tolerated along with benzodiazepines.
CVA like symptoms with left-sided facial droop dysarthria. With same.no focal neurological deficits noted on exam. 2/5 motor strength in bilateral lower extremities. For CT angiogram. Neurology to evaluate. Check A1c and lipid profile along
with 2D echo bubble study.
Suicidal ideations, not on a 302. Psychiatry to evaluate
Care management consulted for potential alcohol use resources
Original Note:
Today's Communication/Plan
-
Neurologic workup
Speech and swallow evaluation
Case management evaluation
Continue to monitor alcohol withdrawal, high risk phenobarbital taper with as needed Ativan
Assessment / Plan
Assessment / Plan
HPI: 63 yo M with H alcohol use disorder and anxiety who presented for alcohol use disorder. Pt admitted to accelerated drinking over the past month to cope with stress and manage anxiety (6-8 beers 8.0% ABV Daily +/- bottles of [place] for the
past 2-3 years). He reported frequent withdrawal symptoms which prompted him to get up to have a drink. He admitted to tinnitus and 'hearing songs in head' throughout the day.
Last drink was around 12PM of DOA. Pt was evicted from his apartment on DOA.
Patient has never been to alcohol rehab before and denies prior attempt to quit.
A/P:
# Alcohol Use Disorder / Alcohol Withdrawal Syndrome/ Delirium tremens
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
# h/o prior episodes of delirium tremens and withdrawal seizures
CT head on admission showed No evidence of acute intracranial abnormality.
Alcohol level 400 on admission
MSAS score this morning, 3
Monitor MSAS with Ativan prn
cont high risk phenobarbital taper
Continue thiamine and folic acid repletion,
Cont IVF
NPO for now due to delirium, restraint PRN
Speech and swallow consult to evaluate potentially starting a diet
Monitor in ICU
Case management consulted to discuss rehab options with patient. Currently patient says rehab is 'up in the air'
#Dysarthria
Nursing reports at change of shift this morning the patient had left facial droop, dysarthria, weakness, aphasia. His time of last known normal was not known by nursing.
On my exam patient had dysarthria and left-sided facial droop, slurred speech and tremors.
Neurology consulted
Speech and swallow consult
CTA ordered
CTA demonstrated no acute intracranial pathology, no M1 or M2 occlusion or focal stenosis.
MRI brain ordered
MRI brain showed no evidence of acute intracranial abnormality
#Leukocytosis
White blood cell noted to be 12.0 this morning, patient remains afebrile
Will continue to monitor with daily CBCs
# Hypomagnesemia
Resolved, 1.8
Will continue to recheck periodically
Diet: N.p.o.
DVT proph: Lovenox
Code Status: Full Code
Anticipated Discharge: > 48 hours
Subjective/Interval History
-
Date of Service: November 17, 2023
M SAS score this a.m. 3
Patient had strokelike symptoms during change of shift, his time of last known normal is not known per nursing, as he has been in alcohol withdrawal.
Patient had a left facial droop dysarthria, weakness and aphasia.
Objective Data
-
Labs:
Laboratory Results
11/17/23
03:15
WBC 12.0 H
Hgb 12.8 L
Hct 36.1 L
Plt Count 170
Sodium 139
Potassium 3.5
Chloride 107
Carbon Dioxide 15 L
BUN 8 L
Creatinine 0.6 L
Glucose 89
Calcium 9.0
Total Bilirubin 1.3
AST 53
ALT 40
Alkaline Phosphatase 98
Vital Signs:
Vital Signs
Temp Pulse Resp BP Pulse Ox
97.6 F 75 20 157/92 99
11/17/23 08:20 11/17/23 06:00 11/17/23 06:08 11/17/23 06:00 11/17/23 06:00
I&O
11/16/23 11/17/23 11/18/23
06:59 06:59 06:59
Intake Total 2450 / 2550 2400 / 2500 200 / 200
Output Total 1850 / 1850 1250 / 1250
Balance 600 / 700 1150 / 1250 200 / 200
Review of Systems
-
History Source: Patient
Constitutional: Reports No Symptoms
EENT: Reports Other (Dysarthria)
Respiratory: Reports No Symptoms
Cardiac: Reports No Symptoms
Abdomen/GI: Reports No Symptoms
Neuro: Reports Weakness
Physical Exam
-
General: Slurred Speech, Appears Chronically Ill and Other (Slowed and slurred speech, slowed movement)
Respiratory: Clear to Auscultation
Cardiac: Regular Rhythm and S1/S2
GI: Soft, Nontender, Nondistended and Normal Bowel Sounds
Musculoskeletal: No Edema
Skin: Warm and Dry
Neuro: Awake, Alert, Oriented, AO x 3, Tremors, Central Nerve's Intact, No Sensory Deficits, Slurred Speech, Facial Droop and Other (Cranial nerves I through XII grossly intact, sensation equal bilaterally, strength equal bilaterally)
Psych: Calm
Data Reviewed
-
CT Scan: Report Reviewed by me and Discussed with Physician
MRI: Report Reviewed by me and Discussed with Physician
Labs: Labs Reviewed by me and Discussed with Physician
[2023-11-17] MEDS: THIAMINE INJECTION 200 MG IV ×2 (08:24→19:08)
[2023-11-17] MEDS: NICODERM TRANSDERMAL 7 MG TRANSDERM (08:24)
[2023-11-17] MEDS: FOLVITE 1 MG PO (08:24)
--- NOTE | 2023-11-17 08:40 | CON.NEURO4 ---
Addendum entered and electronically signed by Mickey Becerra MD 11/17/23 14:37:
Studies reviewed.
I have personally examined the patient. I reviewed and agree with the [employer] [employer] ATTORNEY's Note.
My addenda:
Awake, interactive. No acute distress.
Speech, slowed with bradyphrenia.
Moderate to severe difficulty with two-step requests. No tremor.
Extra-ocular movements grossly intact.
Facial movements full and symmetric. Hearing intact to normal conversational volume.
Normal UE movements bilaterally.
Neck: full ROM.
Chest: no dyspnea
Heart: no JVD
Ext: (-) Clubbing, (-) Cyanosis, (-) Edema
IMPRESSIONS/RECOMMENDATIONS:
Abrupt onset of left-sided weakness in a patient with recently diagnosed alcohol use disorder
Check MRI of brain for completeness, if unremarkable, may discontinue NIH stroke scale
Smoking cessation ordered
Continue usual MSAS protocol
No indication at this time the patient would benefit from rehabilitation evaluations except for alcohol rehabilitation
D/W patient/ nursing
Will continue to follow pending results.
Original Note:
Documented by User: Myra Doan NP 11/17/23 13:08
Consultation - Neurology 4
-
CONSULTING PHYSICIAN: Mickey Becerra MD
REFERRING PHYSICIAN: Hospitalists/BRITNEY Prabhakar
DICTATED BY: BRITNEY Stafford
DATE/TIME OF REQUEST: 11/16/23
DATE/TIME OF CONSULTATION: 11/17/23
Reason for Consultation: Stroke Alert
History of Present Illness:
This is a 63-year-old right-handed male who has presented to the hospital on 11/14/23 with report of symptoms of alcohol withdrawal in the setting of a recent significant increase in his chronic alcohol usage. Alcohol level [address] head
was obtained on arrival and is negative for any acute abnormalities. Patient was admitted to the ICU and started on MSAS and phenobarbital protocol, thiamine, and folate. Last evening (11/16/23) at 1950 a stroke alert was activated due to new onset
left facial droop, left-sided weakness, and slurred speech. NIHSS was 7. CT head was obtained and is negative for any acute abnormalities. His HS Seroquel and phenobarbital doses were held due to concern of over sedation. Today (11/17/23), his speech
remains dysarthric, there is a mild left facial droop, and very slight LUE drift, and LLE drift. He endorses feeling dizzy and nauseous and endorses visual hallucinations of seeing extra people in the room. He denies any headache, vision loss,
diplopia, swallowing difficulty, numbness, weakness, chest pain, palpitations, and shortness of breath. He denies any history of TIA or stroke and he is not taking any blood-thinning medications.
Past Medical History: Alcohol use disorder, alcohol withdrawal seizures, anxiety, insomnia, chronic diarrhea, Lyme disease
Surgical History: Denies.
Family History: Reviewed and noncontributory.
Social History: 6-8 beers daily in addition to unknown quantity of moonshine. Occasional cigarette smoking. Marijuana daily.
Allergies: No known allergies.
Home Medications: See below.
Review of Symptoms:
Patient denies any fever, headache, chest pain, shortness of breath, GI or symptoms.
�Per the HPI.�All systems are reviewed negative except above.
Physical Exam:
The patient is afebrile, abdomen is nondistended, breathing is unlabored, skin is warm and dry. Moderate bulk loss in left hand, right hand edematous. Severe bulk loss in bilateral feet. B/L feet with scaly dryness, fungal toes.
NIH Stroke Scale:
I performed the NIH stroke scale on the patient on 11/17/23 at 0845. The patient scored 4 points on the NIH stroke scale assessment, which were assigned as follows: See below.
Neurologic Examination:
The patient is awake, alert and oriented x 3. Delayed response to verbal questions/commands. He is able to follow commands but has severe difficulty following two-step commands. There is no aphasia. There is mild dysarthria. On cranial nerve
assessment, pupils are 3 mm bilateral, round and reactive to light and accommodation. Visual johnson are full. Extraocular movements are intact. Mild mid position nystagmus noted. There is mild left facial drooping. Hearing is intact bilaterally to
normal conversation volume. Tongue palate and uvula are midline. Sternocleidomastoid strengths are full bilaterally. Motor strengths are 5/5 right upper, 5-/5 LUE, 5-/5 RLE, and 4+/5 LLE on [employer] scale. There is slight drift in
the LUE, drift in the LLE. No involuntary movement noted. Deep tendon reflexes are 1+ bilateral upper and lower extremities and Babinski is absent bilaterally. Sensations of touch, temperature and vibration are intact and bilaterally symmetrical.
There was no extinction noted on double simultaneous stimulation. Coordination is intact by finger to nose bilaterally.
Lab Results: See below.
Neuro Imaging:
1. CT Head 11/16/23: No acute intracranial abnormality noted.
2. CTA head/neck 11/17/23: No acute intracranial pathology on unenhanced brain CT. No acute pathology on angiogram identified. No M1 or M2 occlusion. No focal stenosis. Nonspecific mild bilateral submental and cervical lymphadenopathy probably
reactive. Mild nonacute sinusitis. Possible 2.6 cm incompletely imaged cavitary lesion in the right lower lobe. Nonurgent dedicated chest CT examination recommended. Mild multilevel degenerative disc disease.
3. MRI brain 11/17/23: No evidence of acute intracranial abnormality. Motion artifact is present, greatest on T2 gradient echo sequence, and T2 gradient echo sequence is nondiagnostic. Moderate cerebral and cerebellar atrophy, mild periventricular
leukomalacia.
Differentials for the patient's presentation include:
1. Altered mental status in the setting of chronic alcohol abuse, current alcohol withdrawal, and sedation.
2. MRI brain negative for any acute abnormalities. CTA head/neck negative for LVO.
Patient has the following risk factors for their symptoms: Alcohol withdrawal, sedation, HLD, age, cigarette smoking
IV Tenecteplase/IAT candidacy: Not a candidate due to NIHSS <6, unclear diagnosis.
Recommendations:
-No clear indication for initiating antiplatelet therapy at this time.
-Goal normotension.
-MSAS protocol. Continue thiamine/folate replacement.
-Neurological checks per unit guidelines.
-Smoking cessation counseling. Nicotine patch.
-DVT prophylaxis.
Discussed patient care with: Dr. Becerra, the patient
Vital Signs and Labs
-
Vital Signs and Labs:
Vital Signs
Temp Pulse Resp BP Pulse Ox
97.6 F 94 24 133/99 100
11/17/23 08:20 11/17/23 08:30 11/17/23 08:30 11/17/23 08:00 11/17/23 08:41
Lab Results
11/17/23 03:15
PT 14.3 Sec (11.4-14.6) 11/15/23 04:41
INR 1.13 11/15/23 04:41
APTT 31.4 Sec (23.4-35.0) 11/15/23 04:41
Sodium 139 mmol/L (135-145) 11/17/23 03:15
Potassium 3.5 mmol/L (3.5-5.1) 11/17/23 03:15
BUN 8 mg/dl (9-20) L 11/17/23 03:15
Glucose 89 mg/dl (70-99) 11/17/23 03:15
Calcium 9.0 mg/dl (8.4-10.2) 11/17/23 03:15
Phosphorus 3.1 mg/dl (2.5-4.5) 11/15/23 05:59
Medications
-
Active Medications
Generic Name Dose Route Start Last Admin
Trade Name Freq PRN Reason Stop Dose Admin
Acetaminophen 650 mg 11/15/23 01:19
Acetaminophen 325 Mg Tablet PO 12/13/23 01:18
Q4HPRN PRN
mild pain/ fever>100.5F
Enoxaparin Sodium 40 mg 11/15/23 18:00 11/16/23 15:25
Enoxaparin Sodium 40 Mg/0.4 Ml Syringe SC 12/13/23 17:59 40 mg
QPM BENNY Administration
Folic Acid 1 mg 11/15/23 08:00 11/17/23 08:24
Folic Acid 1 Mg Tablet PO 12/13/23 07:59 1 mg
DAILY BENNY Administration
Folic Acid 1 mg/ Sodium 50.2 mls @ 200.8 mls/hr 11/15/23 08:00 11/16/23 12:28
Chloride IV 12/13/23 07:59 50.2 mls
DAILYPRN PRN Administration
if NPO
Sodium Chloride 1,000 mls @ 100 mls/hr 11/15/23 01:19 11/16/23 23:52
Nss IV 1,000 mls
.Q10H BENNY Administration
Lorazepam 1 mg 11/15/23 01:19 11/15/23 06:09
Lorazepam 1 Mg Tablet PO 12/13/23 01:18 1 mg
Q2HPRN PRN Administration
MSAS 5-7
Lorazepam 1 mg 11/15/23 01:19 11/15/23 23:28
Lorazepam 2 Mg/Ml Vial IV 12/13/23 01:18 1 mg
Q1HPRN PRN Administration
MSAS 8-11
Lorazepam 2 mg 11/15/23 01:19 11/15/23 18:12
Lorazepam 2 Mg/Ml Vial IV 12/13/23 01:18 2 mg
Q1HPRN PRN Administration
MSAS > 11
Lorazepam 1 mg 11/17/23 11:00
Lorazepam 1 Mg Tablet PO 12/15/23 10:59
BID BENNY
Nicotine 7 mg 11/15/23 18:00 11/17/23 08:24
Nicotine 7 Mg Patch TRANSDERM 12/13/23 17:59 7 mg
DAILY BENNY Administration
Sodium Chloride 0 flush 11/14/23 23:00
Sodium Chloride 0.9% (Flush) Syringe IV 12/12/23 22:59
PER PROTOCOL BENNY
Sodium Chloride 0 ml 11/15/23 01:19 11/15/23 16:47
Sodium Chloride 0.9% (Preservative Free) 10 Ml Vial IV 12/13/23 01:18 1 ml
PRN PRN Administration
To dilute IV Ativan
Protocol
Thiamine HCl 200 mg 11/15/23 08:00 11/17/23 08:24
Thiamine (100 Mg/Ml) 2 Ml Vial IV 11/17/23 20:01 200 mg
Q12 BENNY Administration
Thiamine HCl 100 mg 11/18/23 08:00
Thiamine 100 Mg Tablet PO 12/16/23 07:59
BID BENNY
Home Medications
�Medication �Instructions �Recorded
No Meds [No Current Medications] 11/14/23
NIH Stroke Score
Subsequent NIH Scale
Date of Subsequent NIH Scale: 11/17/23
Time of Subsequent NIH Scale: 08:45
NIH Stroke Score
Level of Consciousness: 0 - Alert
LOC Questions: 0-Answers both correctly
LOC Commands: 0-Performs both correctly
Best Horizontal Gaze: 0-Normal
Visual Johnson: 0=Normal, no visual loss
Facial Palsy: 1=Minor paralysis
Motor - Right Arm: 0=No drift 10 seconds
Motor - Left Arm: 1=Drift < 10 seconds
Motor - Right Le-No drift 5 seconds
Motor - Left Le-Drift < 5 seconds
Limb Ataxia: 0-Absent
Sensation: 0-Normal
Best Language: 0-No aphasia
Dysarthria: 1-Mild slurring
Extinction and Inattention: 0-No abnormality
Total Score:: 4
Modified William (mRS) Score
Modified [place] Scale (mRS): Moderately severe disability. Unable to attend to bodily needs/walk.
Score: 4

Documented by User: Mickey Becerra MD 11/17/23 14:33
NIH Stroke Score
NIH Stroke Score
Total Score:: 4
Modified [place] (mRS) Score
Score: 4
--- NOTE | 2023-11-17 08:48 | PTCARENOTE ---
Received pt @ change of shift; Waxing/waning neuro status, marked on NIH for confusion, L sided facial droop, LLE weakness, dysarthria, and aphasia. [facility] completed w off-going RN- see flow sheet. Oriented to self/situation; required reorientation
to time/place. PERRLA, 3mm/brisk. SR on monitor w PVC's. SpO2 100% on RA. Afebrile. +BS, abd soft/round. Inc b/b. #[address], draining vicente urine. Complete hygiene care provided-see flow sheet. Pt. assisted w active repositioning. B/L
soft limb/4rail restraints in place for protective intervention- see flow sheet. B/L #20 R/L FA patent, dressing c/d/i. NSS @ 100mL/hr infusing via #20 R FA. Neuro made aware of waxing/waning neuro status; Dr. Becerra to bedside @ this time. Plan
for CTA of head/neck this AM and Brain MRI later today. Pt. updated on plan of care. Bed alarm active. Safe environment maintained.
--- NOTE | 2023-11-17 10:04 | W.PN.INTV ---
Today's Communication / Plan
Recommendations
Continue IV fluids for now
Speech evaluation
Hopefully can advance diet later today
Continue to hold phenobarbital
Will add a standing low-dose Ativan twice a day plus continue as needed depending on MSAS
Continue with frequent neurological checks
Eventual MRI
Assessment
-
Assessment: 63-year-old male occasional tobacco smoker with a past medical history of chronic alcoholism, chronic diarrhea, anxiety/depression and history of Lyme disease who presents with family for alcohol detoxification. He admits to increasing
alcohol use over the last month to cope with stress/anxiety. Drinks 6�8 beers per day in addition to moonshine for the last several years. Admits to feeling withdrawal symptoms in the middle the night which prompted him to drink. He was evicted
from his apartment on the day of hospital admission. 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 In the ER he was afebrile to 98.5 �F, tachycardic to 114 bpm, tachypneic at 19-26 breaths/min, BP 148/114 and saturating 98% on room air. Alcohol level was 429. Labs
also showed serum bicarbonate level 18, glucose 161, AST 106, and ALT 58. Initial CT head showed no acute intracranial abnormality. He was given Toradol in the ER + Ativan and 1 L NS 0.9% x1L. Given his tachycardia with concern for severe
alcoholic withdrawal, he was admitted to the ICU for further care, and critical care services consulted for additional management/recommendations.
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
Impression:
#Chronic alcoholism with acute alcoholic withdrawal (BAL: 429 on admission)
#Hypomagnesemia
#Transaminitis likely due to alcohol abuse
#Anemia
#Tobacco use disorder
#History of hypertension
Plan:
-
Events from last night noted.
Strokelike symptoms, possibly due to oversedation with phenobarbital.
CT head without acute abnormalities
Cervical angiogram negative for acute abnormalities.
Neurology following the patient, eventual MRI.
Holding phenobarbital
Continue with frequent
neurological checks, currently able to move 4 extremities.
Following simple commands
-Continue MSAS
- prn ativan
start standing low-dose Ativan Twice a day
- Thiamine + folate/MVN
- IVF with NS 0.9% at 100cc/hr --> later today and discontinue IV fluids. Hopefully can advance diet
-LFTs improved
- If he becomes agitated then start Precedex gtt
Tobacco abuse
- Nicotine patch
Incidental possible right lower lobe cavitary lesion. Eventual CT of the chest
Will need outpatient pulmonary follow-up.
-
- Maintain SpO2 >90-94%
- Maintain MAP>65
- Replete electrolytes with K>4, Mg>2
- Maintain euglycemia with goal BG 140-180
- prn nebulized bronchodilators � not currently bronchospastic
- DVT ppx: LMWH
Continue ICU level care.
Critical care statement: A total of 31 minutes of critical care time was provided for this patient today. This includes management of unstable vital signs, evaluation of the patient at bedside, reviewing the patient's pertinent medical records
including radiographs, microbiology, laboratory evaluations, and discussion with primary team, consultants, pharmacy, nutrition, physical therapy, case management, charge nurse, critical care nursing, and respiratory therapy.
Data:
CT head 11/14/2023: No evidence of acute intracranial abnormality.
Subjective Dataa
Subjective Data
Date of Service:
Date of Service: November 17, 2023
Chief Complaint: Math Specialist Follow Up
Subjective:
This morning patient calm, following simple commands.
Denies abdominal pain.
Denies nausea or vomiting.
Occasionally restless.
Review of Systems
Cardiopulmonary: Dyspnea (n)
GI: Abdominal Pain (n) and Nausea (n)
Neuro: Headache (n)
Objective Data
Data Reviewed
Vital Signs / I&O / Oxygen:
Vital Signs
Temp Pulse Resp BP Pulse Ox
97.6 F 94 24 133/99 100
11/17/23 08:20 11/17/23 08:30 11/17/23 08:30 11/17/23 08:00 11/17/23 08:41
Intake and Output
11/16/23 11/17/23 11/18/23
06:59 06:59 06:59
Intake Total 2450 / 2550 2400 / 2500 200 / 200
Output Total 1850 / 1850 1250 / 1250 200 / 200
Balance 600 / 700 1150 / 1250 0 / 0
SaO2 100
Physical Exam
General: Respiratory Distress (negative), Comfortable, Chills (negative) and Sweats (negative)
HEENT: Normocephalic and Anicteric
Cardiovascular: S1-S2 and Peripheral Edema (negative)
Respiratory: Wheeze (negative), Crackles (negative), Rhonchi (negative) and Accessory Resp Muscle Use (negative)
GI: Soft, Non Distended, Non Tender and Normal Bowel Sounds
Neurology: Tremors (negative) and Other (Alert, following simple commands.)
Skin: Warm, Dry and Jaundice (negative)
Labs/Micro/Reports
Lab Data
11/17/23 03:15
11/17/23 03:15
--- NOTE | 2023-11-17 10:31 | CM ---
CM following re: discharge planning.
Discussed in Rounds, reviewed pt's chart, met with pt and spoke to pt;'s brother Mike over the phone.
Pt is a 63 year old male, admitted with primary dx of Chronic alcoholism with acute alcoholic withdrawal (BAL: 429 on admission). Per Rounds meeting, pt oriented to self/situation; required reorientation to time and place, CT of head/neck this AM
and Brain MRI later today, continue supportive care.
Per brother Mike, he brought the pt to ED on Friday after he found him drunk and pt was evicted from his apartment. Per Mike, pt is never ,. has 2 brothers and a sister and pt' has significant h/o alcohol abuse, has been drinking for
years. Pt's brother stated that pt went to a similar situation 5 years ago and declined to seek D&A treatment. Per brother, pt made very clear for him on Friday that he will need inpatient D&A rehab. Pt's brother Mike stated he already met and
spoke to Gerard FERRER and a plan will be to get the pt to inpatient D&A rehab at [facility] when pt is medically stable. Pt's brother declined pt's h/o mental illness.
CM met with NBAIL Lowery and he is aware of pt's plan to get to [facility] inpatient D&A rehab.
D/C plan: [facility] inpatient D&A rehab when pt is medically stable. NABIL following.
CM will follow with discharge plan updates as hospitalization progresses
[2023-11-17] MEDS: ATIVAN 1 MG PO (11:39)
[2023-11-17] MEDS: NSS IV (11:43)
[2023-11-17] MEDS: NSS 1000 IV (11:44)
[2023-11-17 11:50] LABS: TSH Reflex To Free T4 0.94 uIU/ml (0.47-4.68)
[2023-11-17 12:25] LABS: Folate 9.9 ng/ml (2.76-20); Vitamin B12 439 pg/ml (239-931)
[2023-11-17] MEDS: NSS (PRESERVATIVE FREE) 0.5 ML IV (12:46)
--- NOTE | 2023-11-17 13:14 | PTCARENOTE ---
pt. transported via bed to CTA of head/neck and Brain MRI this AM, back to rm 3368. Pt. w difficulty laying still for Brain MRI, imaging completed to best of ability. Pt. remains on MSAS, increased to 8, requiring PRN IV Ativan- see flow sheet.
Remains in b/l soft limb restraints/rails for pt. safety- see flow sheet. MSAS' completed per protocol. Safe environment maintained.
[2023-11-17] MEDS: NSS (PRESERVATIVE FREE) 1 ML IV ×2 (13:23→15:27)
[2023-11-17] MEDS: ATIVAN 2 MG IV ×2 (13:23→15:27)
--- NOTE | 2023-11-17 13:30 | PTCARENOTE ---
MSAS increasing, 12- see flow sheet. Pt. tremulous/diaphoretic/restless/agitated/confused; thrashing in bed. Medicated w PRN IV Ativan- see MAR. AM imaging (CTA head/neck and Brain MRI) reviewed by Dr. Becerra. Received order to cancel NIH/neuro
checks d/t negative imaging. Dr. Silva notified on increasing MSAS and Dr. Becerra's update. Safe environment maintained.
--- NOTE | 2023-11-17 13:58 | W.PN.UPDATE ---
Update Note
Progress Note Update
Patient more agitated, trying to get out of bed. Opening eyes, confused.
Neck is supple
Able to move 4 extremities.
-
Back on restraints.
Would restart mid dose IV phenobarbital
Start low-dose Precedex drip
Continue Ativan twice a day and as needed per protocol
Head of the bed elevation, aspiration precautions.
Will remain n.p.o. for now
Additional critical care time 20 minutes
--- NOTE | 2023-11-17 13:58 | W.PN.UPDATE ---
Update Note
Progress Note Update
Pt seen, in soft wrist restraints, pulling at gown. Pt awake but somewhat drowsy, with impaired sensorium, disoriented. Pt denies suicidal ideation when asked, states everybody thinks about it. Pt continues to be a poor historian, confused. He
is on Phenobarb, MSAS protocol receiving Ativan, Precedex.
Imp: Alcohol Use d/o, severe. Alcohol withdrawal delirium
Rec: continue current mgt. Will follow and assess mood state when mental status is clearer
[2023-11-17] MEDS: PHENOBARBITAL 65 MG IV ×3 (14:02→21:34)
[2023-11-17] MEDS: PRECEDEX 100 IV (14:02)
[2023-11-17 14:28] LABS: HDL Cholesterol 63 mg/dl; LDL Cholesterol, Calculated 67 mg/dl; Total Cholesterol 149 mg/dl (50-199); Triglyceride 95 mg/dl (10-149); Very Low Density Lipoprotein 19 mg/dl (0-30)
[2023-11-17 16:13] LABS: Blood Urea Nitrogen 6 mg/dl (9-20); Calcium 8.6 mg/dl (8.4-10.2); Carbon Dioxide 14 mmol/L (22-30); Chloride 107 mmol/L (98-107); Estimated Creatinine Clearance 124 ml/min; Glucose 91 mg/dl (70-99); HDL Cholesterol 59 mg/dl; LDL Cholesterol, Calculated 62 mg/dl; Magnesium 1.7 mg/dl (1.6-2.3); Potassium 3.6 mmol/L (3.5-5.1); Sodium 139 mmol/L (135-145); Total Cholesterol 136 mg/dl (50-199); Triglyceride 76 mg/dl (10-149); Very Low Density Lipoprotein 15 mg/dl (0-30); eGFR > 60.00
--- NOTE | 2023-11-17 16:39 | PTCARENOTE ---
agitated saline contrast study in echocardiogram performed, pt is non-directable and will not follow commands, took several injections due to non-compliance, sonorous. images obtained, tolerated, IV flushed pre and post using, CRISTOBAL.
[2023-11-17 17:15] LABS: Ammonia 12 umol/L (9-30)
[2023-11-17] MEDS: LOVENOX 40 MG SC (17:31)
--- NOTE | 2023-11-17 17:53 | W.CS.POD ---
Consult Summary - Podiatry
-
63 yo male admitted to [facility] with alcohol with drawl symptoms and failure to thrive . Podiatry has been consulted for routine foot care . Patient sleeping/drowsy, Most of the history obtained form the chart. No previous foot problems noted
Exam ; B/L feet intact pedal pulses. No open ulceration, no erythema, no signs of any infection.
Skin texture is WNL, no interdigital maceration , no scaly skin
No osseous deformities noted
All toe nails are elongated and dystrophic, mycotic X10
A/P: Onychomycosis
Poor hygiene
Elongated toe nails X10
Plan : evaluated and treated
Debrided all toe nails X10. Routine feet check by nursing to check any pressure points if in bed for long time
No further intervention by podiatry
--- NOTE | 2023-11-17 19:56 | PTCARENOTE ---
rec'd pt awake, oriented to self, agitated, precedex gtt incr to 0.2- see flow sheet for titrations,MSAS 6, rec phenobarb as ordered, wrists restrained for safety;JOSSY at 3mm, COBOS, left face w/ slight droop, slurred speech, SR- ST, bp elevated- B
Mojica, HOTEL CONCIERGE aware, prn meds ordered, weak distal pulses, no edema,skin warm/dry, RA, lungs decr in bases, sat 100; + bowel sounds, no bm, abd soft, no n/v, npo, # 25 condom cath on- voiding yellow urine
[2023-11-17] MEDS: KCL 270 MEQ IV (21:34)
[2023-11-17] MEDS: SODIUM BICARBONATE 1150 MEQ IV (21:34)
--- NOTE | 2023-11-17 21:55 | PTCARENOTE ---
IVF changed to sterile h20 w/ bicarb at 100ml/hr per order, 40 kcl/250 hung over 4hr per order
[2023-11-17] MEDS: MAGNESIUM SULFATE 100 IV (22:11)
--- NOTE | 2023-11-17 22:12 | PTCARENOTE ---
1 gm mag sulfate hung over 1hr per order
--- NOTE | 2023-11-17 23:37 | PTCARENOTE ---
sys reviewed, changes noted, neuro unch, CHG bath done, linens changed
[2023-11-18] VITALS (24 sets, daily range): BP systolic 94–171; BP diastolic 73–110; BMI 20.5
[2023-11-18 03:56] LABS: Hematocrit 32.6 % (39.0-52.0); Hemoglobin 11.8 g/dL (13.0-18.0); Mean Corp Hgb Conc. 36.2 g/dL (33.0-37.0); Mean Corpuscular Hgb 34.9 pg (27.0-31.0); Mean Corpuscular Volume 96.4 fL (80.0-94.0); Mean Platelet Volume 10.7 fL (7.4-10.4); Platelet Count 141 10^3/uL (130-400); Red Blood Cell Count 3.38 10^6/uL (4.70-6.10); Red Cell Dist. Width 12.2 % (11.5-14.5); White Blood Cell Count 9.2 10^3/uL (4.8-10.8)
[2023-11-18 04:03] LABS: ALT (SGPT) 33 U/L (0-50); AST (SGOT) 42 U/L (17-59); Albumin 3.6 g/dl (3.5-5.0); Alkaline Phosphatase 91 U/L (38-126); Blood Urea Nitrogen 5 mg/dl (9-20); Calcium 8.6 mg/dl (8.4-10.2); Carbon Dioxide 20 mmol/L (22-30); Chloride 106 mmol/L (98-107); Estimated Creatinine Clearance 124 ml/min; Glucose 88 mg/dl (70-99); Potassium 3.8 mmol/L (3.5-5.1); Sodium 139 mmol/L (135-145); Total Bilirubin 1.1 mg/dl (0.2-1.3); Total Protein 6.9 g/dl (6.3-8.2); eGFR > 60.00
--- NOTE | 2023-11-18 04:09 | PTCARENOTE ---
sys reviewed, changes noted
[2023-11-18 05:21] LABS: Folate 12.7 ng/ml (2.76-20)
[2023-11-18] MEDS: KCL 270 MEQ IV (05:27)
--- NOTE | 2023-11-18 05:28 | PTCARENOTE ---
40 kcl/250 hung over 4hr per order
[2023-11-18] MEDS: FOLVITE PO (07:34)
[2023-11-18] MEDS: NICODERM TRANSDERMAL 7 MG TRANSDERM (07:41)
[2023-11-18] MEDS: PHENOBARBITAL 65 MG IV (07:41)
[2023-11-18] MEDS: PRECEDEX 100 IV (07:42)
--- NOTE | 2023-11-18 08:00 | PTCARENOTE ---
Received pt @ change of shift on Precedex gtt and in b/l soft limb restraints/4rails- see flow sheets. Pt. w MSAS 12, agitated/restless/confused/unable to reorient. Standing IV phenobarb and PRN IV Ativan admin- see MAY. Remains w L facial
droop/slurred/garbled speech; neuro checks maintained; able to COBOS/PERRLA/3mm and brisk. SB w prolonged QT on monitor. +1 RUE edema, Dr. Silva aware. SpO2 97% on RA. +BS. Inc b/b. #[address] draining yellow/vicente urine. B/L UE ecchymotic.
#22 L wrist occluded and #20 R FA infiltrated, both peripherals removed. Bicarb gtt, Precedex, and K+ rider infusing via #20 SARA, dressing c/d/i. Safe environment maintained.
[2023-11-18] MEDS: ATIVAN 2 MG IV ×2 (08:07→16:27)
[2023-11-18] MEDS: NSS (PRESERVATIVE FREE) 0.5 ML IV ×2 (10:06→15:53)
[2023-11-18] MEDS: ATIVAN 1 MG IV ×2 (10:07→15:53)
[2023-11-18] MEDS: SODIUM BICARBONATE 1150 MEQ IV (10:38)
--- NOTE | 2023-11-18 10:48 | W.PN.UPDATE ---
Update Note
Progress Note Update
Patient seen with RN at bedside, chart reviewed. Mr. Evans remains sedated on Precedex, reportedly agitated at times, moaning but no sensible words at the moment. MSAS this AM 12. CVA was ruled out yesterday. Unable to assess for mood and/or
suicidal ideations at this time. Will follow.
Impression/Recommendations: Alcohol Use disorder, severe; Alcohol withdrawal delirium - in ICU for Precedex, continue Pheno and MSAS. Will follow.
--- NOTE | 2023-11-18 11:28 | W.PN.INTV ---
Today's Communication / Plan
Recommendations
Remains critically ill
Continue bicarbonate drip for 1 more bag
Repeat BMP later and replete electrolytes as needed
Continue Precedex drip
Ativan increased
Continue as needed benzodiazepine as well
Remains n.p.o. for now
Aspiration precautions
Head of elevation
Restraints
Assessment
-
Assessment: 63-year-old male occasional tobacco smoker with a past medical history of chronic alcoholism, chronic diarrhea, anxiety/depression and history of Lyme disease who presents with family for alcohol detoxification. He admits to increasing
alcohol use over the last month to cope with stress/anxiety. Drinks 6�8 beers per day in addition to moonshine for the last several years. Admits to feeling withdrawal symptoms in the middle the night which prompted him to drink. He was evicted
from his apartment on the day of hospital admission. Last drink at 12 PM [employer]. In the ER he was afebrile to 98.5 �F, tachycardic to 114 bpm, tachypneic at 19-26 breaths/min, BP 148/114 and saturating 98% on room air. Alcohol level was 429. Labs
also showed serum bicarbonate level 18, glucose 161, AST 106, and ALT 58. Initial CT head showed no acute intracranial abnormality. He was given Toradol in the ER + Ativan and 1 L NS 0.9% x1L. Given his tachycardia with concern for severe
alcoholic withdrawal, he was admitted to the ICU for further care, and critical care services consulted for additional management/recommendations.
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
Impression:
#Chronic alcoholism with acute alcoholic withdrawal (BAL: 429 on admission)
#Hypomagnesemia
#Transaminitis likely due to alcohol abuse
#Anemia
#Tobacco use disorder
#History of hypertension
Plan:
-
Remain delirious. Intermittently agitated. Restless in bed.
Strokelike symptoms, possibly due to oversedation with phenobarbital.
CT head/MRI without evidence of a stroke.
Cervical angiogram negative for acute abnormalities.
Symptoms improved after decreasing sedation.
Continues to require restraints
neurological checks, currently able to move 4 extremities.
Following simple commands but remains agitated.
-Continue MSAS
- prn ativan
Standing Ativan increased to 3 times a day.
Continue Precedex drip
Will taper off phenobarbital when able
Thiamine + folate/MVN
Mild nongap metabolic acidosis.
Started on low rate bicarbonate drip. Repeat labs later, may need to transition to D5 and half-normal saline.
Tobacco abuse
- Nicotine patch
Incidental possible right lower lobe cavitary lesion. Eventual CT of the chest
Will need outpatient pulmonary follow-up.
-
- Maintain SpO2 >90-94%
- Maintain MAP>65
- Replete electrolytes with K>4, Mg>2
- Maintain euglycemia with goal BG 140-180
- prn nebulized bronchodilators � not currently bronchospastic
- DVT ppx: LMWH
Continue ICU level care.
Critical care statement: A total of 31 minutes of critical care time was provided for this patient today. This includes management of unstable vital signs, evaluation of the patient at bedside, reviewing the patient's pertinent medical records
including radiographs, microbiology, laboratory evaluations, and discussion with primary team, consultants, pharmacy, nutrition, physical therapy, case management, charge nurse, critical care nursing, and respiratory therapy.
Data:
CT head 11/14/2023: No evidence of acute intracranial abnormality.
Subjective Dataa
Subjective Data
Date of Service:
Date of Service: November 18, 2023
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
Subjective:
Remains intermittently agitated.
Confused.
Requiring frequent Ativan and Precedex drip.
Critically ill
Review of Systems
General: Other ( unable to provide due to delirium)
Objective Data
Data Reviewed
Vital Signs / I&O / Oxygen:
Vital Signs
Temp Pulse Resp BP Pulse Ox
97.5 F 50 20 146/107 97
11/18/23 11:16 11/18/23 07:00 11/18/23 07:00 11/18/23 07:00 11/18/23 08:00
Intake and Output
11/17/23 11/18/23 11/19/23
06:59 06:59 06:59
Intake Total 2400 / 2500 2821.0 / 3196.1 800.6 / 800.6
Output Total 1250 / 1250 1500 / 1500
Balance 1150 / 1250 1321.0 / 1696.1 800.6 / 800.6
SaO2 97
Physical Exam
General: Respiratory Distress (negative), Comfortable, Chills (negative) and Sweats (negative)
HEENT: Normocephalic and Anicteric
Cardiovascular: S1-S2 and Peripheral Edema (negative)
Respiratory: Wheeze (negative), Crackles (negative), Rhonchi (negative) and Accessory Resp Muscle Use (negative)
GI: Soft, Non Distended, Non Tender and Normal Bowel Sounds
Neurology: Tremors (negative) and Other (Alert, following simple commands.)
Skin: Warm, Dry and Jaundice (negative)
Labs/Micro/Reports
Lab Data
11/18/23 03:41
11/18/23 03:41
--- NOTE | 2023-11-18 12:11 | PTCARENOTE ---
Pt. confused/agitated when stimulated;remains on precedex to keep RASS 0-(-2)- see flow sheet. MSAS completed per protocol and medicated w PRN when approp. US to bedside @ this time for RUE US, in progress. Restraints remain in place. Bed alarm
active. Safe environment maintained.
[2023-11-18] MEDS: FOLVITE 50.2 MG IV (13:08)
--- NOTE | 2023-11-18 13:40 | W.PN.HOSP.TC ---
Addendum entered and electronically signed by Jason Millan MD 11/18/23 14:26:
Acute alcohol use disorder with withdrawal. Continue thiamine folate CIWA protocol/minds score. Continue providing phenobarbital wean as tolerated along with benzodiazepines.
-If cannot control then may need to initiate precedex.
CVA like symptoms with left-sided facial droop dysarthria. MRI and CTA Head and neck without evidence of acute cva. Neuro following. 2d echo without acute findings
Suicidal ideations, not on a 302. Psychiatry to evaluate
Care management consulted for potential alcohol use resources
Original Note:
Today's Communication/Plan
-
Continue high risk phenobarbital taper
Continue monitoring alcohol withdrawal with MSAS
Assessment / Plan
Assessment / Plan
HPI: 63 yo M with PMH alcohol use disorder and anxiety who presented for alcohol use disorder. Pt admitted to accelerated drinking over the past month to cope with stress and manage anxiety (6-8 beers 8.0% ABV Daily +/- bottles of [place] for the
past 2-3 years). He reported frequent withdrawal symptoms which prompted him to get up to have a drink. He admitted to tinnitus and 'hearing songs in head' throughout the day.
Last drink was around 12PM of DOA. Pt was evicted from his apartment on DOA.
Patient has never been to alcohol rehab before and denies prior attempt to quit.
A/P:
# Alcohol Use Disorder / Alcohol Withdrawal Syndrome/ Delirium tremens
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
# h/o prior episodes of delirium tremens and withdrawal seizures
CT head on admission showed No evidence of acute intracranial abnormality.
Alcohol level 400 on admission
MSAS score this morning, 12
M SAS scores have been in the range between 2 and 12 over the last 24 hours
Monitor MSAS with Ativan prn
cont high risk phenobarbital taper
Continue thiamine and folic acid repletion,
Cont IVF
Monitor in ICU
Case management consulted to discuss rehab options with patient. Currently patient says rehab is 'up in the air'
#Dysarthria
During the morning of 11/17/2023 the patient was noted to have left facial droop, dysarthria, weakness, aphasia. His time of last known normal was not known by nursing.
On my exam patient had dysarthria and left-sided facial droop, slurred speech and tremors.
Neurology was consulted and ordered a CTA as well as MRI brain
CTA demonstrated no acute intracranial pathology, no M1 or M2 occlusion or focal stenosis.
MRI brain showed no evidence of acute intracranial abnormality
Speech and swallow was consulted however they deemed the patient to be medically inappropriate for dysphagia evaluation due to his tremors and agitation
NPO for now due to delirium, restraints PRN
#Right upper extremity edema
Nurse reports patient's right arm to be puffy and edematous
Venous ultrasound was ordered to evaluate right upper extremity
#Leukocytosis
White blood cell noted to be 12.0 this morning, patient remains afebrile
Will continue to monitor with daily CBCs
# Hypomagnesemia
Resolved, 1.8
Will continue to recheck periodically
Diet: N.p.o.
DVT proph: Lovenox
Code Status: Full Code
Anticipated Discharge: > 48 hours
Subjective/Interval History
-
Date of Service: November 18, 2023
Nurse reports episode of agitation and aggression overnight
Objective Data
-
Labs:
Laboratory Results
11/18/23 11/18/23
03:41 15:00
WBC 9.2
Hgb 11.8 L
Hct 32.6 L
Plt Count 141
Sodium 139 Pending
Potassium 3.8 Pending
Chloride 106 Pending
Carbon Dioxide 20 L Pending
BUN 5 L Pending
Creatinine 0.5 L Pending
Glucose 88 Pending
Calcium 8.6 Pending
Total Bilirubin 1.1
AST 42
ALT 33
Alkaline Phosphatase 91
Vital Signs:
Vital Signs
Temp Pulse Resp BP Pulse Ox
97.5 F 50 20 146/107 97
11/18/23 11:16 11/18/23 07:00 11/18/23 07:00 11/18/23 07:00 11/18/23 08:00
I&O
11/17/23 11/18/23 11/19/23
06:59 06:59 06:59
Intake Total 2400 / 2500 2821.0 / 3196.1 1010.8 / 1010.8
Output Total 1250 / 1250 1500 / 1500
Balance 1150 / 1250 1321.0 / 1696.1 1010.8 / 1010.8
Review of Systems
-
Unable to obtain full review of systems at this time due to: Other (Patient was progressive and not answering questions during time of my interview, during repeat visit patient was unable to be aroused from sleep)
Physical Exam
-
General: Well Developed, Appears in Distress, Slurred Speech and Appears Chronically Ill
Respiratory: Clear to Auscultation
Cardiac: Regular Rhythm and S1/S2
GI: Soft, Nondistended and Normal Bowel Sounds
Musculoskeletal: No Edema
Skin: Warm and Dry
Neuro: Tremors, Sedated and Slurred Speech
Psych: Agitated
Data Reviewed
-
Labs: Labs Reviewed by me and Discussed with Physician
--- NOTE | 2023-11-18 13:45 | CM ---
CM following re: discharge planning.
Discussed in Rounds, reviewed pt's chart, met with pt. Per Rounds meeting, pt remains agitated/restless/confused/unable to reorient, slurred/garbled speech, continue supportive care.
D/C plan: [facility] inpatient D&A rehab when pt is medically stable. [facility] following.
CM will follow with discharge plan updates as hospitalization progresses
[2023-11-18] MEDS: APRESOLINE 10 MG IV (14:10)
[2023-11-18 16:28] LABS: Blood Urea Nitrogen 4 mg/dl (9-20); Calcium 8.7 mg/dl (8.4-10.2); Carbon Dioxide 26 mmol/L (22-30); Chloride 99 mmol/L (98-107); Estimated Creatinine Clearance > 125 ml/min; Glucose 82 mg/dl (70-99); Magnesium 1.6 mg/dl (1.6-2.3); Potassium 3.6 mmol/L (3.5-5.1); Sodium 137 mmol/L (135-145); eGFR > 60.00
[2023-11-18] MEDS: NSS (PRESERVATIVE FREE) 1 ML IV (16:28)
[2023-11-18 16:31] LABS: Vitamin B12 364 pg/ml (239-931)
[2023-11-18] MEDS: LOVENOX 40 MG SC (18:28)
[2023-11-18] MEDS: KCL 160 MEQ IV (18:28)
--- NOTE | 2023-11-18 19:06 | PTCARENOTE ---
PM BMP lab work reviewed by Dr. Silva- further orders received- see MAR. Safe environment maintained.
--- NOTE | 2023-11-18 20:00 | PTCARENOTE ---
Rec'd pt sedated on precedex gtt at 0.2 sandra, awakens easily, disoriented, follows commands, slight L facial droop noted, slurred speech, JOSSY at 3mm, remains restrained, SR w/ occas PVC, bp stable, weak distal pulses, skin warm/dry, 2gm mag sulfate
hung over 2 hr, RA, sat 100, lungs decr in bases, + bowel sounds, inc sm amt loose brown stool, NPO, abd soft, no vomiting, # 25 condom cath on voiding yellow urine
[2023-11-18] MEDS: THIAMINE INJECTION 200 MG IV (20:04)
[2023-11-18] MEDS: MAGNESIUM SULFATE 50 IV (20:04)
[2023-11-18] MEDS: NSS 1000 IV (21:52)
[2023-11-19] VITALS (27 sets, daily range): BP systolic 118–160; BP diastolic 78–117; PULSE 115–120; BMI 20.8
--- NOTE | 2023-11-19 | PTCARENOTE ---
sys reviewed, changes noted, oriented to person , place, year, cooperative, lungs unch, CHG bath done, linens changed
[2023-11-19] MEDS: NSS (PRESERVATIVE FREE) 0.5 ML IV ×2 (00:09→08:45)
[2023-11-19] MEDS: ATIVAN 1 MG IV ×2 (00:09→08:45)
[2023-11-19 03:26] LABS: Hematocrit 32.3 % (39.0-52.0); Hemoglobin 11.3 g/dL (13.0-18.0); Mean Corpuscular Volume 97.3 fL (80.0-94.0); Mean Platelet Volume 9.8 fL (7.4-10.4); Platelet Count 180 10^3/uL (130-400); Red Blood Cell Count 3.32 10^6/uL (4.70-6.10); Red Cell Dist. Width 12.2 % (11.5-14.5); White Blood Cell Count 9.9 10^3/uL (4.8-10.8)
[2023-11-19 03:44] LABS: ALT (SGPT) 27 U/L (0-50); AST (SGOT) 36 U/L (17-59); Albumin 3.3 g/dl (3.5-5.0); Alkaline Phosphatase 82 U/L (38-126); Blood Urea Nitrogen 6 mg/dl (9-20); Calcium 8.5 mg/dl (8.4-10.2); Carbon Dioxide 24 mmol/L (22-30); Chloride 100 mmol/L (98-107); Estimated Creatinine Clearance > 125 ml/min; Glucose 74 mg/dl (70-99); Magnesium 1.8 mg/dl (1.6-2.3); Potassium 3.6 mmol/L (3.5-5.1); Sodium 136 mmol/L (135-145); Total Bilirubin 0.9 mg/dl (0.2-1.3); Total Protein 6.2 g/dl (6.3-8.2); eGFR > 60.00
--- NOTE | 2023-11-19 04:05 | PTCARENOTE ---
sys reviewed, easily awakens, answers questions appropriately
[2023-11-19] MEDS: MAGNESIUM SULFATE 102 GRAMS IV (04:19)
[2023-11-19] MEDS: KCL 160 MEQ IV (04:22)
--- NOTE | 2023-11-19 04:23 | PTCARENOTE ---
1 gm mag sulfate hung over 1 hr, 20 kcl /160 hung over 2 hr per order
[2023-11-19] MEDS: PRECEDEX 100 IV (05:34)
[2023-11-19] MEDS: NSS 1000 IV (06:12)
[2023-11-19] MEDS: THIAMINE INJECTION 200 MG IV ×2 (08:45→20:17)
[2023-11-19] MEDS: NICODERM TRANSDERMAL 7 MG TRANSDERM (08:45)
[2023-11-19] MEDS: FOLVITE 1 MG PO (08:45)
--- NOTE | 2023-11-19 09:21 | W.PN.HOSP.TC ---
Addendum entered and electronically signed by Jason Millan MD 11/19/23 15:58:
Acute alcohol use disorder with withdrawal. Continue thiamine folate CIWA protocol/minds score. Continue providing phenobarbital wean as tolerated along with benzodiazepines.
-On precedex, feared complication is fever and bradycardia, did have episodes of bradycardia yeseterday but now resolved, monitor on tele, wean ass tolerated.
CVA like symptoms with left-sided facial droop dysarthria. MRI and CTA Head and neck without evidence of acute cva. Neuro following. 2d echo without acute findings
Suicidal ideations, not on a 302. Psychiatry to evaluate
Care management consulted for potential alcohol use resources
Original Note:
Today's Communication/Plan
-
Wean off of Precedex
Attempt to wean off of bicarb drip
Case management consult for placement
Speech and swallow consult for diet
Assessment / Plan
Assessment / Plan
HPI: 63 yo M with H alcohol use disorder and anxiety who presented for alcohol use disorder. Pt admitted to accelerated drinking over the past month to cope with stress and manage anxiety (6-8 beers 8.0% ABV Daily +/- bottles of [place] for the
past 2-3 years). He reported frequent withdrawal symptoms which prompted him to get up to have a drink. He admitted to tinnitus and 'hearing songs in head' throughout the day.
Last drink was around 12PM of DOA. Pt was evicted from his apartment on DOA.
Patient has never been to alcohol rehab before and denies prior attempt to quit.
A/P:
# Alcohol Use Disorder / Alcohol Withdrawal Syndrome/ Delirium tremens
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
# h/o prior episodes of delirium tremens and withdrawal seizures
CT head on admission showed No evidence of acute intracranial abnormality.
Alcohol level 400 on admission
LFTs have downtrended to be within normal limits
MSAS score this morning, 0-2
M SAS scores have been in the range between 0 and 12 over the last 24 hours
Monitor MSAS with Ativan prn
cont high risk phenobarbital taper
Attempt to wean off Precedex
Aggressive behavior has subsided, will continue to keep patient off of restraints
Continue thiamine and folic acid repletion,
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
Monitor in ICU
Case management consulted to discuss rehab and placement options with patient. Currently patient says rehab is 'not an option'
#Dysarthria
During the morning of 11/17/2023 the patient was noted to have left facial droop, dysarthria, weakness, aphasia. His time of last known normal was not known by nursing.
On my exam patient had dysarthria and left-sided facial droop, slurred speech and tremors.
Neurology was consulted and ordered a CTA as well as MRI brain
CTA demonstrated no acute intracranial pathology, no M1 or M2 occlusion or focal stenosis.
MRI brain showed no evidence of acute intracranial abnormality
Speech and swallow was consulted to evaluate the patient for a diet as has been n.p.o. for a while
Will attempt to give patient a clear liquid diet with speech and swallow's input, currently n.p.o.
#Right upper extremity edema
Nurse reports patient's right arm to be puffy and edematous
Venous ultrasound was negative for DVT in right upper extremity
#Leukocytosis
Resolved, currently within normal limits
Will continue to monitor with daily CBCs
# Hypomagnesemia
Resolved, 1.8
Will continue to recheck periodically
Diet: N.p.o.
DVT proph: Lovenox
Code Status: Full Code
Anticipated Discharge: > 48 hours
Subjective/Interval History
-
Date of Service: November 19, 2023
MSAS course this morning 0-2
Patient has been off of restraints overnight, no longer aggressive behavior
Objective Data
-
Labs:
Laboratory Results
11/19/23
02:59
WBC 9.9
Hgb 11.3 L
Hct 32.3 L
Plt Count 180 D
Sodium 136
Potassium 3.6
Chloride 100
Carbon Dioxide 24
BUN 6 L
Creatinine 0.6 L
Glucose 74
Calcium 8.5
Total Bilirubin 0.9
AST 36
ALT 27
Alkaline Phosphatase 82
Vital Signs:
Vital Signs
Temp Pulse Resp BP Pulse Ox
98.0 F 94 16 146/88 98
11/19/23 07:44 11/19/23 09:00 11/19/23 09:00 11/19/23 09:00 11/19/23 09:00
I&O
11/18/23 11/19/23 11/20/23
06:59 06:59 06:59
Intake Total 2821.0 / 3196.1 3497.8 / 3601.2 546.8 / 546.8
Output Total 1500 / 1500 1650 / 1650 225 / 225
Balance 1321.0 / 1696.1 1847.8 / 1951.2 321.8 / 321.8
Review of Systems
-
Unable to obtain full review of systems at this time due to: Other (Patient not completely oriented)
Physical Exam
-
General: No Apparent Distress and Comfortable
Respiratory: Clear to Auscultation
Cardiac: Regular Rhythm and S1/S2
GI: Soft, Nontender, Nondistended and Normal Bowel Sounds
Musculoskeletal: No Edema
Skin: Warm and Dry
Neuro: Tremors, Central Nerve's Intact, Slurred Speech, Facial Droop and Other (Slowed movements and speech)
Psych: Calm
Data Reviewed
-
Ultrasound: Report Reviewed by me and Discussed with Physician
Labs: Labs Reviewed by me and Discussed with Physician
--- NOTE | 2023-11-19 09:25 | PTOTSP ---
Dysphagia Evaluation
Oral/pharyngeal stages of swallowing suspected to be grossly WFL. Patient with frequent eructation which may be concerning for a possible esophageal component.
Recommend:
1. Regular, Thin Liquids
2. Medications as best tolerated
3. Supervision and assistance while restrained
4. Strategies: upright to 90 degrees, small sips/bites, slow rate, remain upright for at least 30 minutes after PO intake as a reflux precaution
5. Will follow up briefly at the acute care level via chart review, discussion with medical team, and/or dysphagia therapy as appropriate given patient at risk to fluctuate in his swallowing ability/safety with alcohol withdrawal.
--- NOTE | 2023-11-19 09:30 | PTCARENOTE ---
Rec'd care of patient at 0730. Patient alert and oriented. Smiling at staff. Anxious and tearful at times. Tremors intermittently noted. Weaning Precedex per protocol. B/l wrist restraints removed. Bed alarm on and functioning. NSR with pvcs on tele
monitor. Lung sounds cta on room air. Incontinent of bowel and bladder. CHG bath provided. CC on for urinary incontinence. Precedex and IVFs infusing through right midline.
--- NOTE | 2023-11-19 11:01 | PTCARENOTE ---
Precedex gtt turned off. Patient repositioned high in bed. Set up to brush teeth. [place] encouraged. Breakfast ordered. VSS.
--- NOTE | 2023-11-19 12:00 | PTCARENOTE ---
Patient remains calm and cooperative off Precedex gtt. Vitals stable. Appetite good. 90% of breakfast consumed. PT/OT to see patient in afternoon.
--- NOTE | 2023-11-19 12:34 | W.PN.INTV ---
Today's Communication / Plan
Recommendations
Advance diet
Aspiration precautions
Discontinue pressors
Continue IV Ativan
Physical therapy
Occupational Therapy
Continue IV fluids
Assessment
-
Assessment: 63-year-old male occasional tobacco smoker with a past medical history of chronic alcoholism, chronic diarrhea, anxiety/depression and history of Lyme disease who presents with family for alcohol detoxification. He admits to increasing
alcohol use over the last month to cope with stress/anxiety. Drinks 6�8 beers per day in addition to moonshine for the last several years. Admits to feeling withdrawal symptoms in the middle the night which prompted him to drink. He was evicted
from his apartment on the day of hospital admission. 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 In the ER he was afebrile to 98.5 �F, tachycardic to 114 bpm, tachypneic at 19-26 breaths/min, BP 148/114 and saturating 98% on room air. Alcohol level was 429. Labs
also showed serum bicarbonate level 18, glucose 161, AST 106, and ALT 58. Initial CT head showed no acute intracranial abnormality. He was given Toradol in the ER + Ativan and 1 L NS 0.9% x1L. Given his tachycardia with concern for severe
alcoholic withdrawal, he was admitted to the ICU for further care, and critical care services consulted for additional management/recommendations.
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
Impression:
#Chronic alcoholism with acute alcoholic withdrawal (BAL: 429 on admission)
#Hypomagnesemia
#Transaminitis likely due to alcohol abuse
#Anemia
#Tobacco use disorder
#History of hypertension
Plan:
-
Clinically improved today 11/19/2023
This morning cooperative-called
He knows he is in [facility]
No significant moderate neurological deficit
-Continue MSAS
- prn ativan
Continue with standing Ativan for 1 additional day. Hopefully can taper off
Phenobarbital has been discontinued
Discontinue Precedex this morning.
Continue to monitor closely.
Thiamine + folate/MVN
Discontinue IV fluids
Encourage oral intake
Monitor daily electrolyte
Tobacco abuse
- Nicotine patch
Incidental possible right lower lobe cavitary lesion. Eventual CT of the chest
Will need outpatient pulmonary follow-up. Information will be left in the chart.
-
- prn nebulized bronchodilators � not currently bronchospastic
Advance diet with aspiration precautions today 11/19/2023
- DVT ppx: LMWH
If able to discontinue Precedex and patient is stable through the course of the day. Transition to telemetry in the afternoon.
If transferred to telemetry critical care team will sign off. Please call pulmonary if any respiratory issues arise.
Data:
CT head 11/14/2023: No evidence of acute intracranial abnormality.
Subjective Dataa
Subjective Data
Date of Service:
Date of Service: November 19, 2023
Chief Complaint: [employer] Follow Up
Subjective:
This morning feels better
Cooperative
EMTALA signed
Feels very hungry.
Denies nausea or vomiting.
Review of Systems
Cardiopulmonary: Dyspnea on Exertion (n) and Cough (n)
GI: Abdominal Pain (n), Nausea (n) and Vomiting (n)
Objective Data
Data Reviewed
Vital Signs / I&O / Oxygen:
Vital Signs
Temp Pulse Resp BP Pulse Ox
98.1 F 86 26 157/108 96
11/19/23 11:17 11/19/23 11:00 11/19/23 12:00 11/19/23 12:00 11/19/23 12:00
Intake and Output
11/18/23 11/19/23 11/20/23
06:59 06:59 06:59
Intake Total 2821.0 / 3196.1 3497.8 / 3601.2 968.5 / 968.5
Output Total 1500 / 1500 1650 / 1650 225 / 225
Balance 1321.0 / 1696.1 1847.8 / 1951.2 743.5 / 743.5
SaO2 96
Physical Exam
General: Respiratory Distress (negative), Comfortable, Chills (negative) and Sweats (negative)
HEENT: Normocephalic and Anicteric
Cardiovascular: S1-S2 and Peripheral Edema (negative)
Respiratory: Wheeze (negative), Crackles (negative), Rhonchi (negative) and Accessory Resp Muscle Use (negative)
GI: Soft, Non Distended, Non Tender and Normal Bowel Sounds
Neurology: Awake, Alert, No Motor Deficits and Other (Now following commands)
Skin: Warm, Dry and Jaundice (negative)
Labs/Micro/Reports
Lab Data
11/19/23 02:59
11/19/23 02:59
--- NOTE | 2023-11-19 14:56 | CM ---
CM following re: discharge planning.
Discussed in Rounds, reviewed pt's chart, met with pt. Per Rounds meeting, pt is alert and oriented, calm and cooperative, anxious and tearful at times, continue supportive care.
Per [facility] CRS Sebastián and [facility]S Xavi, pt strongly refuses inpatient D&A rehab and pt asked for information regrading outpatient D&A programs.
CM has a long conversation with the pt regrading his alcohol addiction, loosing his apartment. Pt stated he 'listens carefully to everyone here and thinking of their recommendations'. Pt expressed his understanding regrading alcohol consumption
problem, expressed not promising feelings regarding going to inpatient D&A rehab and stated he will stop drinking on his own and will be interested in outpatient D&A programs instead. Pt stated: 'I don't want to mean smart, but I can stop drinking
on my own'. Pt presents very weak and barely can hold a spoon. Pt stated he will talk to his brother Mike and pt described him as a 'great brother'. Pt gave me his permission to talk to his brother Mike.
CM spoke to pt's brother Mike and he stated he will visit the pt today and will encourage him to go to inpatient D&A rehab. Pt's brother is aware that pt most likely will need physical rehabilitation at a SNF first before pt can go to inpatient D&A
rehab if pt agrees.
PT and OT came to pt's room to evaluate the pt.
D/C plan: most likely SNF level of care. [facility] following.
CM will follow with discharge plan updates as hospitalization progresses
--- NOTE | 2023-11-19 15:04 | PTCARENOTE ---
Patient assisted oob to chair by PT/OT.
[2023-11-19] MEDS: ATIVAN 1 MG PO ×3 (15:18→22:18)
--- NOTE | 2023-11-19 15:42 | W.PN.UPDATE ---
Update Note
Progress Note Update
Tolerated diet
Sitting out of bed
Mental status improved
Precedex is off
Transferred to telemetry
Fall precaution
Critical care team will sign off
Please call pulmonary if any respiratory issues arise
--- NOTE | 2023-11-19 15:50 | PTCARENOTE ---
Patient downgraded to tele level.
[2023-11-19] MEDS: APRESOLINE 10 MG IV (16:26)
--- NOTE | 2023-11-19 16:49 | W.PN.UPDATE ---
Update Note
Progress Note Update
patient seen chart reviewed. discussed with nursing. the patient does seem to have improved. he is able to converse to a degree although remains a bit confused. at one point told me he was leaving and he'd be back later tonight although he had
already told me he was at and it was 2023. would continue w current regimen. i explained to him what exactly alcohol wd is and why it is dangerous. also explained the rationale of treating it as we do. he is not wanting rehab. told me he knows
how to be sober and said he succeeded in the past at sobriety. i asked him for how long......16 and 25 days....hardly long enough. patient also told me he was evicted from his home. he is actually homeless now. also told me he need to 'get a job'
will continue to encourage in pt rehab and hopefully mentation will get better. will follow
[2023-11-19] MEDS: LOVENOX 40 MG SC (17:23)
[2023-11-20] VITALS (8 sets, daily range): BP systolic 131–192; BP diastolic 70–108; BMI 20.8
[2023-11-20] MEDS: ATIVAN 1 MG IV ×3 (00:18→18:53)
[2023-11-20] MEDS: NSS (PRESERVATIVE FREE) 10 ML IV ×2 (00:20→21:02)
[2023-11-20] MEDS: ATIVAN 1 MG PO ×4 (02:02→19:33)
--- NOTE | 2023-11-20 03:05 | FALL ---
Description of Fall:
pt havening loose bm. fell trying to get oob.
Injuries Noted:
pt c/o of left wrist pain and abrasion to left hip
Action Taken:
ice applied and jennifer wrap.
Name of Provider Notified: Daryn Mandel MEDIA COORDINATOR
--- NOTE | 2023-11-20 03:23 | FALL ---
Description of Fall:
PT IS CONFUSED/FORGETFUL. MSAS=5-7. PT WAS JUST ON BEDPAN W/ RN. pt still having loose bm attempted to get oob and tangled in condom cath and fell. rn witness pt fall.
Injuries Noted:
pt c/o left wrist pain. and sustained abrasion to left hip
Action Taken:
jennifer and ice applied to left wrist. placed on bed martins
Name of Provider Notified: Daryn Mandel FURNITURE REMOVALIST'S ASSISTANT
--- NOTE | 2023-11-20 03:30 | W.PN.UPDATE ---
Update Note
Progress Note Update
RN notified [employer]. patient had a fall. Reports he was trying to go to bathroom and he turned and he fell on his left side landing on his left wrist. Denies hitting head. Reports pain at left hand at wrist. able to rotate passive range of motion,
reports tenderness with active range of motion. + elbow flexion, + forearm supination. mild redness noted at left wrist/hand posteriorly.
mild redness noted left elbow. Mild redness at Left hip. Patient is on Lovenox
no warmth or swelling noted at this time.
advised to Ice and compress at present.
if pain persists will do xray of left hand/wrist
[2023-11-20 04:39] LABS: Hematocrit 31.8 % (39.0-52.0); Hemoglobin 11.2 g/dL (13.0-18.0); Mean Corp Hgb Conc. 35.2 g/dL (33.0-37.0); Mean Corpuscular Volume 96.7 fL (80.0-94.0); Mean Platelet Volume 9.8 fL (7.4-10.4); Platelet Count 212 10^3/uL (130-400); Red Blood Cell Count 3.29 10^6/uL (4.70-6.10); Red Cell Dist. Width 12.3 % (11.5-14.5); White Blood Cell Count 9.6 10^3/uL (4.8-10.8)
[2023-11-20 05:01] LABS: ALT (SGPT) 28 U/L (0-50); AST (SGOT) 35 U/L (17-59); Albumin 3.4 g/dl (3.5-5.0); Alkaline Phosphatase 86 U/L (38-126); Blood Urea Nitrogen 5 mg/dl (9-20); Calcium 8.7 mg/dl (8.4-10.2); Carbon Dioxide 28 mmol/L (22-30); Chloride 101 mmol/L (98-107); Estimated Creatinine Clearance > 125 ml/min; Glucose 111 mg/dl (70-99); Potassium 3.3 mmol/L (3.5-5.1); Sodium 137 mmol/L (135-145); Total Bilirubin 0.8 mg/dl (0.2-1.3); Total Protein 6.6 g/dl (6.3-8.2); eGFR > 60.00
[2023-11-20] MEDS: TYLENOL 650 MG PO (05:12)
[2023-11-20] MEDS: KLOR-CON 40 MEQ PO ×2 (08:38→15:18)
[2023-11-20] MEDS: NICODERM TRANSDERMAL 7 MG TRANSDERM (08:40)
[2023-11-20] MEDS: THIAMINE INJECTION 200 MG IV ×2 (08:40→19:33)
[2023-11-20] MEDS: FOLVITE 1 MG PO (08:40)
--- NOTE | 2023-11-20 09:07 | W.PN.HOSP.TC ---
Addendum entered and electronically signed by Jason Millan MD 11/20/23 13:42:
Acute alcohol use disorder with withdrawal. Continue thiamine folate CIWA protocol/minds score. Continue providing phenobarbital wean as tolerated along with benzodiazepines.
-Off of precedex, downgrade from ICU.
-Still ocnfused. Still has signs of Alcohol withdrawl.
-Continue ativan and MSAS.
-PT/OT consult
CVA like symptoms with left-sided facial droop dysarthria. MRI and CTA Head and neck without evidence of acute cva. Neuro following. 2d echo without acute findings
Suicidal ideations, not on a 302. Psychiatry to evaluate
Original Note:
Today's Communication/Plan
-
Wrist x-ray
Assessment / Plan
Assessment / Plan
HPI: 63 yo M with PMH alcohol use disorder and anxiety who presented for alcohol use disorder. Pt admitted to accelerated drinking over the past month to cope with stress and manage anxiety (6-8 beers 8.0% ABV Daily +/- bottles of [place] for the
past 2-3 years). He reported frequent withdrawal symptoms which prompted him to get up to have a drink. He admitted to tinnitus and 'hearing songs in head' throughout the day.
Last drink was around 12PM of DOA. Pt was evicted from his apartment on [place]A.
Patient has never been to alcohol rehab before and denies prior attempt to quit.
A/P:
# Alcohol Use Disorder / Alcohol Withdrawal Syndrome/ Delirium tremens
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
# h/o prior episodes of delirium tremens and withdrawal seizures
CT head on admission showed No evidence of acute intracranial abnormality.
Alcohol level 400 on admission
LFTs have downtrended to be within normal limits
MSAS score this morning, was 5
M SAS scores have been in the range between 0 and 8 over the last 24 hours
Monitor MSAS with Ativan prn
cont high risk phenobarbital taper
Attempt to wean off Precedex
Aggressive behavior has subsided, will continue to keep patient off of restraints
Continue thiamine and folic acid repletion,
Patient downgraded to MedSurg
Case management consulted to discuss rehab and placement options with patient. Currently patient says rehab is 'not an option'
#Left wrist pain
Patient had a fall on outstretched left wrist overnight while trying to use the bathroom
Patient currently reporting tenderness to light palpation, supination, pronation.
2 view x-ray wrist scheduled for this afternoon
#Dysarthria
During the morning of 11/17/2023 the patient was noted to have left facial droop, dysarthria, weakness, aphasia. His time of last known normal was not known by nursing.
On my exam patient had dysarthria and left-sided facial droop, slurred speech and tremors.
Neurology was consulted and ordered a CTA as well as MRI brain
CTA demonstrated no acute intracranial pathology, no M1 or M2 occlusion or focal stenosis.
MRI brain showed no evidence of acute intracranial abnormality
Speech and swallow was consulted to evaluate the patient for a diet
Patient started on regular diet, currently having bowel movements
#Hypokalemia
Potassium 3.3 this morning
Patient given 2 doses of 40 mill equivalents potassium orally
Will follow with daily CMP
#Right upper extremity edema
Nurse reports patient's right arm to be puffy and edematous
Venous ultrasound was negative for DVT in right upper extremity
#Leukocytosis
Resolved, currently within normal limits
Will continue to monitor with daily CBCs
# Hypomagnesemia
Resolved, 1.8
Will continue to recheck periodically
Diet: Regular
DVT proph: Lovenox
Code Status: Full Code
Anticipated Discharge: > 48 hours
Subjective/Interval History
-
Date of Service: November 20, 2023
Patient fell overnight on left wrist, currently has pain
Pain to palpation and with supination and pronation.
Objective Data
-
Labs:
Laboratory Results
11/20/23
04:11
WBC 9.6
Hgb 11.2 L
Hct 31.8 L
Plt Count 212
Sodium 137
Potassium 3.3 L
Chloride 101
Carbon Dioxide 28
BUN 5 L
Creatinine 0.6 L
Glucose 111 H
Calcium 8.7
Total Bilirubin 0.8
AST 35
ALT 28
Alkaline Phosphatase 86
Vital Signs:
Vital Signs
Temp Pulse Resp BP Pulse Ox
98.2 F 87 16 136/102 98
11/20/23 03:47 11/20/23 03:47 11/20/23 03:47 11/20/23 03:47 11/20/23 03:47
I&O
11/19/23 11/20/23 11/21/23
06:59 06:59 06:59
Intake Total 3497.8 / 3601.2 1268.5 / 1268.5
Output Total 1650 / 1650 1125 / 1125
Balance 1847.8 / 1951.2 143.5 / 143.5
Review of Systems
-
History Source: Patient
Constitutional: Reports No Symptoms
Respiratory: Reports No Symptoms
Cardiac: Reports No Symptoms
Abdomen/GI: Reports Diarrhea; Denies Abdominal Pain
Musculoskeletal: Reports Other (Left wrist pain, left shoulder pain, left knee pain secondary to fall)
Physical Exam
-
General: Well Nourished, Appears in Distress and Pain
Respiratory: Clear to Auscultation
Cardiac: Regular Rhythm and S1/S2
GI: Soft, Nontender, Nondistended and Normal Bowel Sounds
Skin: Warm and Dry
Neuro: Awake, Tremors, Slurred Speech, Facial Droop and Other (Slowed movements and speech)
Psych: Calm
[2023-11-20 09:45] LABS: Magnesium 1.6 mg/dl (1.6-2.3)
--- NOTE | 2023-11-20 14:51 | CM ---
Patient seen bedside, patient on Medsitter. CM discussed PT recommendations of SNF. Patient confused, reports his ride is in the hallway waiting to pick him up. Per PT notes, patient previously independent at baseline, no device used. CM spoke with
Sebastián from [facility], updated on SNF recommendation, will follow along for PT/OT recommendations vs inpatient treatment. CM will continue to follow for all discharge planning needs, will follow up with patient on SNF facilities.
Plan; follow up with patient on SNF referrals.
--- NOTE | 2023-11-20 16:47 | W.PN.UPDATE ---
Update Note
Progress Note Update
patient seen chart reviewed. spoke with nursing. mr rivera remains confused although he did know where he was . he originally told me it was 1923 then when i looked at him quizzically said '2023' he was trying to get oob. did not understand that
he was a fall risk and had recently fallen. he also did not seem to realize he had a catheter in and did not need to go to to urinate. he has received several doses of ativan as per msas today. he is off phenobarb and precedex at this point
but clearly still confused. bp remains on the high side w mild temp 99.5 at this time unable to talk w him about future eg need for etoh rehab.
[2023-11-20] MEDS: NSS (PRESERVATIVE FREE) 1 ML IV ×4 (17:27→23:03)
[2023-11-20] MEDS: LOVENOX 40 MG SC (17:28)
[2023-11-20] MEDS: ATIVAN 2 MG IV ×4 (19:56→23:03)
--- NOTE | 2023-11-20 20:30 | PTCARENOTE ---
Report given from AM RN. Pt MSAS has been 8-13 in the morning shift. Pt has been AAOx1, anxious, restless, easily agitated, confused, forgetful, and uncooperative. Pt has been attempting to get up frequently. AMMONIA REFRIGERATION TECHNICIAN has been notified and was upgraded
to IMU. Report given and transfer.
--- NOTE | 2023-11-20 23:25 | PTCARENOTE ---
Pt transferred from 4th floor. MSAS has been 11-14. 2MG ativan given q1h. Unfortunately pt had to be put in 4 point restraints. Many interventions were tried before this, medsitter, meds, calm interaction, closer to station, warm blankets,
reorientation. Pt was taking all his equipment off and damaging them. Pt then was trying to get OOB and at risk of harming himself. Medsitter remains at bedside.
SR/ST on monitor. Remains RA. CC in place. afebrile. Pt was aaox3 when first came to floor around 2129 but easily confused & forgetful. R midline in place, blood return. RUE bruised +1 edema, +pulses, <2sec cap refill, but was cold & clammy when
first transferred to floor, WAD IMPREGNATOR made aware. When rechecked it seems to have gotten better, pink, warm, +pulses, will monitor closely. L hand/wrist wrapped in acewrap, +pulses. b/l feet cool, weak pulses.
Will continue to monitor closely. Bed alarm on. Medsitter in place. Call sinha in reach.
[2023-11-21] VITALS (12 sets, daily range): BP systolic 146–192; BP diastolic 69–109; BMI 20.8
[2023-11-21] MEDS: ATIVAN 2 MG IV (00:22)
[2023-11-21] MEDS: NSS (PRESERVATIVE FREE) 1 ML IV ×2 (00:22→07:28)
[2023-11-21] MEDS: PHENOBARBITAL 65 MG IV (01:15)
--- NOTE | 2023-11-21 01:23 | W.PN.UPDATE ---
Addendum entered and electronically signed by BRITNEY Choi 11/21/23 06:53:
much less agitated post phenobarbital. RN reports finally able to sleep.
Original Note:
Update Note
Progress Note Update
pt transferred to IMU for increased agitation and high continued high MSAS scores >10
PT has been receiving ativan 2mg iv steadily q1h since arrival. PT needing to be placed back into 4 point restraints. even though not ideal with left wrist fx. But pt harm to self and others
Notes state 'cont phenobarb taper' but this seems to have been inadvertently stopped. Given that he's still in active ETOH withdrawal, will resume po doses. Will try and iv dose now due to being very agitated now.
[2023-11-21] MEDS: ATIVAN 1 MG IV ×3 (03:00→12:57)
[2023-11-21] MEDS: NSS (PRESERVATIVE FREE) 0.25 ML IV (03:01)
[2023-11-21 05:15] LABS: Hematocrit 32.8 % (39.0-52.0); Hemoglobin 11.6 g/dL (13.0-18.0); Mean Corp Hgb Conc. 35.4 g/dL (33.0-37.0); Mean Corpuscular Hgb 35.2 pg (27.0-31.0); Mean Corpuscular Volume 99.4 fL (80.0-94.0); Platelet Count 220 10^3/uL (130-400); White Blood Cell Count 8.7 10^3/uL (4.8-10.8)
[2023-11-21 05:39] LABS: ALT (SGPT) 27 U/L (0-50); AST (SGOT) 39 U/L (17-59); Albumin 3.6 g/dl (3.5-5.0); Alkaline Phosphatase 72 U/L (38-126); Blood Urea Nitrogen 2 mg/dl (9-20); Carbon Dioxide 22 mmol/L (22-30); Chloride 104 mmol/L (98-107); Estimated Creatinine Clearance > 125 ml/min; Glucose 106 mg/dl (70-99); Potassium 3.2 mmol/L (3.5-5.1); Sodium 137 mmol/L (135-145); Total Bilirubin 0.9 mg/dl (0.2-1.3); Total Protein 6.8 g/dl (6.3-8.2); eGFR > 60.00
[2023-11-21] MEDS: KCL 270 MEQ IV (06:39)
--- NOTE | 2023-11-21 09:03 | W.PN.HOSP.TC ---
Addendum entered and electronically signed by Jason Millan MD 11/21/23 13:36:
Acute alcohol use disorder with withdrawal. Continue thiamine folate CIWA protocol/minds score. Continue providing phenobarbital wean as tolerated along with benzodiazepines.
-Off of precedex, downgrade from ICU.
-Still ocnfused. Still has signs of Alcohol withdrawl.
-Continue ativan and MSAS.
-PT/OT consult
CVA like symptoms with left-sided facial droop dysarthria. MRI and CTA Head and neck without evidence of acute cva. Neuro following. 2d echo without acute findings
Left wrist fracture, consult ortho, keep in jennifer bandage, support provided.
Suicidal ideations, not on a 302. Psychiatry to evaluate
Original Note:
Today's Communication/Plan
-
Reinitiate high risk phenobarbital taper
Orthopedic consult
Assessment / Plan
Assessment / Plan
HPI: 63 yo M with PMH alcohol use disorder and anxiety who presented for alcohol use disorder. Pt admitted to accelerated drinking over the past month to cope with stress and manage anxiety (6-8 beers 8.0% ABV Daily +/- bottles of [place] for the
past 2-3 years). He reported frequent withdrawal symptoms which prompted him to get up to have a drink. He admitted to tinnitus and 'hearing songs in head' throughout the day.
Last drink was around 12PM of DOA. Pt was evicted from his apartment on [place].
Patient has never been to alcohol rehab before and denies prior attempt to quit.
A/P:
# Alcohol Use Disorder / Alcohol Withdrawal Syndrome/ Delirium tremens
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
# h/o prior episodes of delirium tremens and withdrawal seizures
CT head on admission showed No evidence of acute intracranial abnormality.
Alcohol level 400 on admission
LFTs have downtrended to be within normal limits
MSAS score this morning, was 10
M SAS scores have been in the range between 4 and 14 over the last 24 hours
Monitor MSAS with Ativan prn
High risk phenobarbital taper was reinitiated last night due to increased and MS I-S and agitation
Patient weaned off Precedex, will consider reinitiating due to increase in symptoms
Aggressive behavior began again overnight, patient was reported to be agitated, hallucinating and trying to climb out of bed. Patient was given 10 mg of Ativan in a 4-hour period overnight
Patient was required to be transferred to IMU, placed in 4 point restraints
Continue thiamine and folic acid repletion,
Case management consulted to discuss rehab and placement options with patient. Currently patient says rehab is 'not an option'
#Left wrist fracture
Patient had a fall on outstretched left wrist overnight while trying to use the bathroom
Patient currently reporting tenderness to light palpation, supination, pronation.
Three-view left wrist x-ray demonstrated a first metacarpal base fracture
Patient's arm was wrapped, placed in a sling
Orthopedics was consulted to evaluate for a splint
#Dysarthria
During the morning of 11/17/2023 the patient was noted to have left facial droop, dysarthria, weakness, aphasia. His time of last known normal was not known by nursing.
On my exam patient had dysarthria and left-sided facial droop, slurred speech and tremors.
Neurology was consulted and ordered a CTA as well as MRI brain
CTA demonstrated no acute intracranial pathology, no M1 or M2 occlusion or focal stenosis.
MRI brain showed no evidence of acute intracranial abnormality
Speech and swallow was consulted to evaluate the patient for a diet
Patient started on regular diet, currently having bowel movements
#Hypokalemia
Potassium 3.2 this morning
Refractory to repletion
Status post 2 X40 mill equivalent potassium +20 mill equivalent potassium infusions
Magnesium has been checked and has been within normal limits, will consider recheck
Will follow with daily CMP
#Right upper extremity edema
Nurse reports patient's right arm to be puffy and edematous
Venous ultrasound was negative for DVT in right upper extremity
#Leukocytosis
Resolved, currently within normal limits
Will continue to monitor with daily CBCs
# Hypomagnesemia
Resolved, 1.8
Will continue to recheck periodically
Diet: Regular
DVT proph: Lovenox
Code Status: Full Code
Anticipated Discharge: > 48 hours
Subjective/Interval History
-
Date of Service: November 21, 2023
Patient required IMU transfer overnight due to episodes of agitation, abscess was in the tens overnight patient required 10 mg of Ativan in 4 hours
Patient was required to be put in 4 point restraints, caution is used as patient does have a new wrist fracture
Phenobarbital taper reinitiated overnight, will consider Precedex
Objective Data
-
Labs:
Laboratory Results
11/21/23
04:48
WBC 8.7
Hgb 11.6 L
Hct 32.8 L
Plt Count 220
Sodium 137
Potassium 3.2 L
Chloride 104
Carbon Dioxide 22
BUN 2 L
Creatinine 0.5 L
Glucose 106 H
Calcium 9.0
Total Bilirubin 0.9
AST 39
ALT 27
Alkaline Phosphatase 72
Vital Signs:
Vital Signs
Temp Pulse Resp BP Pulse Ox
99.0 F 103 18 149/91 98
11/21/23 07:47 11/21/23 02:00 11/21/23 02:00 11/21/23 02:00 11/21/23 02:00
I&O
11/20/23 11/21/23 11/22/23
06:59 06:59 06:59
Intake Total 1268.5 / 1268.5 90 / 90
Output Total 1125 / 1125 400 / 400
Balance 143.5 / 143.5 -310 / -310
Review of Systems
-
Unable to obtain full review of systems at this time due to: Other (Patient too sedated to speak)
Physical Exam
-
General: Well Developed, No Apparent Distress and Comfortable; Negative Conversant
Respiratory: Clear to Auscultation
Cardiac: Regular Rhythm and S1/S2
GI: Soft, Nondistended and Normal Bowel Sounds
Musculoskeletal: No Edema
Skin: Warm and Dry
Neuro: Sedated; Negative Awake, Alert, Oriented or AO x 3
Psych: Other (Sedated, opens eyes to voice and does not respond and falls back asleep)
Data Reviewed
-
Diagnostic Radiology: Image personally visualized and interpreted, Report Reviewed by me and Discussed with Physician
Labs: Labs Reviewed by me and Discussed with Physician
[2023-11-21] MEDS: THIAMINE INJECTION 200 MG IV ×2 (09:53→20:12)
[2023-11-21] MEDS: NICODERM TRANSDERMAL 7 MG TRANSDERM (09:53)
[2023-11-21] MEDS: FOLVITE 1 MG PO (09:53)
[2023-11-21] MEDS: KLOR-CON 40 MEQ PO (09:53)
[2023-11-21] MEDS: LUMINAL 64.8 MG PO ×3 (09:54→22:48)
[2023-11-21] MEDS: NSS (PRESERVATIVE FREE) 0.5 ML IV (12:58)
--- NOTE | 2023-11-21 13:56 | W.PN.UPDATE ---
Update Note
Progress Note Update
patient seen chart reviewed mr cannon's had continued to regress yesterday and was moved back to imu. today he seems to slowly be improving. . it was noted that phenobarb had been discontinued at some point perhaps prematurely. it has been
restarted at 64+mg dose. he is still using significant doses of ativan although msas scores are lower this afternoon than they had been. discussed w nursing and with the pharmacist.. for now would continue w current doses unless he regresses again
in which case would consider starting phenobarb at the 97.5 mg dose again. today he was confused. he was oriented x3 but he was unable to engage in any meaningful conversation. he would utter phrases which were not germane to the discussion we were
having. bp is elevated he has to be monitored re getting oob. feel fracturing his wrist. med sitter is in place. will follow no changes made in psych meds. .
--- NOTE | 2023-11-21 14:41 | CM ---
Patient with Dx Alcohol Use Disorder / Alcohol Withdrawal Syndrome/ DTs, left wrist Fx after fall, Dysarthria, hypokalemia. Room air. Receiving IV Ativan prn, Phenobarb taper. Seen by Psych. MSAS. Per nursing; confused, restraints. Medsitter.
PT & OT 11/18 recommends skilled rehab.
Spoke with patient's brother Mike; discussed that due to his active withdrawal d/c plans are unable to be put in place at this time. He is aware that PT/OT will see him again once he is able to participate. Mike is also interested in patient
going to Inpatient [facility] Rehab. The patient has been homeless since 11/13 and Mike is not able to help him further re; housing.
Plan d/c plans efforts once no longer actively withdrawing, and updated PT/OT notes available.
Discuss with [facility] once no longer actively withdrawing.
--- NOTE | 2023-11-21 14:50 | PTCARENOTE ---
Rec'd pt this AM. remains in 4pt restraints. restless, confused, hallucinating at times, oriented X2 other times. continues to make efforts to get out of restraints and out of bed. Unaware of limitiations or fall risk. unaware of injury resulting
from fall. Eating only a few bites of meals. very poor PO intake overall. will take PO meds with much encouragement.
--- NOTE | 2023-11-21 14:55 | W.PN.UPDATE ---
Update Note
Progress Note Update
Called Mr. Nathan Mckeon at [phone] and updated him regarding his brother's status and rehab/SNF placement. His brother would like to be involved in the conversation regarding getting his brother help. I relayed his number to the case
manager wound care and asked her to reach out and discuss the options. His brother requested that he be updated this weekend, please call and update him sometime this weekend regarding his brother status.
[2023-11-21] MEDS: LOVENOX 40 MG SC (16:39)
--- NOTE | 2023-11-21 17:43 | W.PN.UPDATE ---
Update Note
Progress Note Update
Full consult dictated. Asked to see this 63 yo male admitted for alcohol withdrawal who is confused but complained of left wrist/hand pain. Radiographs revealed a minimally displaced base of the first metacarpal fracture. Patient unable to give
a history. evaluation of his left wrist and hand reveal ecchymosis with mild swelling. NVI distally. Nontender ROM of the elbow. Minimal tenderness about his wrist but significant tenderness about the base of the 1st metacarpal. A thumb spica
splint was placed to allow for healing. May followup in the office for followup in 2-3 weeks for repeat radiographs. Please call us back if further ortho issues arise.
[2023-11-21] MEDS: ATIVAN 1 MG PO (20:12)
[2023-11-21] MEDS: APRESOLINE 10 MG IV (20:13)
[2023-11-21] MEDS: FLUSH (NSS) 3 FLUSH IV (20:14)
[2023-11-22] VITALS (10 sets, daily range): BP systolic 113–166; BP diastolic 61–101
[2023-11-22] MEDS: ATIVAN 1 MG PO ×3 (00:06→23:20)
--- NOTE | 2023-11-22 03:12 | PTCARENOTE ---
Pt recieved at beginning of shift resting in bed in 4pt soft limb wrist restraints and all four side rails up. Pt AAOx2 but grossly confused, forgetful, restless. Speech slow. Makes good eye contact but communication at times nonsensical. Admits to
hearing music in his head but not all the time. MSAS 4-7 throughout shift so far. Ativan PO given x 2 with one dose tapered Phenobarbital. Hypertensive at beginning of shift. Medicated with prn Hydralazine with good result. Afebrile. SR/ST on CM.
Rate as high as 151 during sleep. Back into the 90's -110's without intervention. Denies pain. Pt bathed and shampooed with mouth care. Left wrist/arm with splint/brace/jennifer wrap. Skin warm, +pulses. Good movement in fingers. Incontinent x 1 brown
loose bm. With #30 CC vicente urine in drainage bag. Took PM meds without difficulty in applesauce. Rest of assessment as documented. Maintained on Q2hr turns. Call sinha remains within reach at right hand. Will continue to monitor.
[2023-11-22 04:57] LABS: Hematocrit 36.6 % (39.0-52.0); Hemoglobin 12.6 g/dL (13.0-18.0); Mean Corp Hgb Conc. 34.4 g/dL (33.0-37.0); Mean Corpuscular Hgb 34.9 pg (27.0-31.0); Mean Corpuscular Volume 101.4 fL (80.0-94.0); Mean Platelet Volume 9.7 fL (7.4-10.4); Platelet Count 278 10^3/uL (130-400); Red Blood Cell Count 3.61 10^6/uL (4.70-6.10); Red Cell Dist. Width 12.4 % (11.5-14.5); White Blood Cell Count 9.8 10^3/uL (4.8-10.8)
[2023-11-22 05:19] LABS: ALT (SGPT) 27 U/L (0-50); AST (SGOT) 36 U/L (17-59); Albumin 3.8 g/dl (3.5-5.0); Alkaline Phosphatase 71 U/L (38-126); Blood Urea Nitrogen 3 mg/dl (9-20); Calcium 9.5 mg/dl (8.4-10.2); Carbon Dioxide 25 mmol/L (22-30); Chloride 102 mmol/L (98-107); Estimated Creatinine Clearance > 125 ml/min; Glucose 102 mg/dl (70-99); Potassium 3.9 mmol/L (3.5-5.1); Sodium 140 mmol/L (135-145); Total Bilirubin 0.9 mg/dl (0.2-1.3); Total Protein 7.3 g/dl (6.3-8.2); eGFR > 60.00
[2023-11-22] MEDS: APRESOLINE 10 MG IV (06:15)
[2023-11-22] MEDS: FLUSH (NSS) 2 FLUSH IV (06:16)
[2023-11-22 06:20] LABS: Magnesium 1.5 mg/dl (1.6-2.3)
[2023-11-22] MEDS: MAGNESIUM SULFATE 50 IV (08:34)
[2023-11-22] MEDS: NICODERM TRANSDERMAL 7 MG TRANSDERM (08:37)
[2023-11-22] MEDS: THIAMINE INJECTION 200 MG IV ×2 (08:37→21:50)
[2023-11-22] MEDS: KLOR-CON 40 MEQ PO (08:37)
[2023-11-22] MEDS: LUMINAL 64.8 MG PO (08:39)
[2023-11-22] MEDS: FOLVITE 1 MG PO (08:39)
[2023-11-22 10:32] LABS: Phosphorus 4.4 mg/dl (2.5-4.5)
--- NOTE | 2023-11-22 11:56 | W.PN.UPDATE ---
Update Note
Progress Note Update
patient seen chart reviewed. discussed w nursing. the patient she felt was much better this am. he was alert and engaged with her. after the phenobarb he became sedated and sleepy which was his condition when i saw him. i could rouse him and he
smiled but very quickly fell back asleep. reviewed. the phenobarb which is scheduled for some reason for 12 of the 64.8 mg doses. he has already received five. spoke with pharmacy to proceed as follows. stop the 64+ dose now. start the 32.4 mg dose
for six doses with the next phenobarb admin. nursing can fill in if needed w ativan which he has used less frequently today. this patient really needs rehab. i did speak to charo yesterday who will follow up w him as he becomes able to converse.
brother and family are resolved that they will no longer help him if he does not acquiesce to going to rehab. will follow
--- NOTE | 2023-11-22 13:41 | PTCARENOTE ---
Recd pt this AM. AAO x3. more lethargic late morning. Dr. Morris in to assess. med adjustment made. Pt ate 75% of his meal at lunch with feeding assistance. vital signs stable.
--- NOTE | 2023-11-22 14:25 | W.PN.HOSP.TC ---
Today's Communication/Plan
-
continue MSAS/phenobarb protocol
replete electrolytes PRN
Assessment / Plan
Assessment / Plan
1. Alcohol withdrawal
Alcohol use disorder
Minor transaminitis suspected from alcohol use related liver injury
-Patient has a history of significant alcohol use and related issues. Has a history of alcohol withdrawal.
-Patient was initially started on as needed Ativan and MSAS protocol
-Phenobarbital protocol added as well and patient was being tapered off although started having rebound withdrawal symptoms
-Patient reinitiated on phenobarb protocol
-MSAS score has came down and patient was more coherent in the morning
-Maintain on IV thiamine/folate
-Patient was not agreeable for rehab initially, will rediscuss once patient mentation improved
2. Left hand first metacarpal fracture
-Patient had a fall in hospital while trying to walk to the bathroom
-Wrist x-ray showing mildly displaced impacted fracture of the proximal aspect of first metacarpal bone
-Evaluated by orthopedic surgeon and thumb spica splint placed. This to be maintained for 4 to 6 weeks with patient follow-up in office in 3 weeks.
3. Left-sided facial droop/dysarthria
-Patient had episode of facial droop/dysarthria and aphasia
-Neurology involving care and patient underwent CTA head and neck/MRI brain and ruled out any stroke
-Patient to be continue to monitor at this point for any new neurological deficits
4. Hypokalemia
Hypomagnesemia
-Replace potassium/magnesium as needed
5. Right upper extremity edema
-Venous ultrasound was negative for DVT in right upper extremity
6. Leukocytosis -reactive
-resolved at this point.
Diet: Regular
DVT proph: Lovenox
Care plan discussed with patient brother at bedside.
Total time spent : 52 mins
I personally saw and examined the patient.
I have reviewed all diagnostic interpretations and treatment plans as written.
Time includes patient management by me, time spent at the patients bedside, time to review lab and imaging results, discussing patient care, documentation in the medical record, and time spent with the family or caregiver and discussing care plan
with RN/Consultants.
Anticipated Discharge: > 48 hours
Subjective/Interval History
-
Date of Service: November 22, 2023
Patient remains sedated, was waking up in the morning per RN
no reported other issues
Objective Data
-
Labs:
Laboratory Results
11/22/23
04:11
WBC 9.8
Hgb 12.6 L
Hct 36.6 L
Plt Count 278 D
Sodium 140
Potassium 3.9
Chloride 102
Carbon Dioxide 25
BUN 3 L
Creatinine 0.6 L
Glucose 102 H
Calcium 9.5
Total Bilirubin 0.9
AST 36
ALT 27
Alkaline Phosphatase 71
Vital Signs:
Vital Signs
Temp Pulse Resp BP Pulse Ox
98.7 F 92 21 127/73 95
11/22/23 11:33 11/22/23 12:00 11/22/23 12:00 11/22/23 12:00 11/22/23 12:00
I&O
11/21/23 11/22/23 11/23/23
06:59 06:59 06:59
Intake Total 90 / 90 240 / 240
Output Total 400 / 400 950 / 950
Balance -310 / -310 -710 / -710
Review of Systems
-
Unable to obtain full review of systems at this time due to: Acuity
Physical Exam
-
General: Negative Appears in Distress
HEENT: Negative Oxygen
Respiratory: Clear to Auscultation
Cardiac: Regular Rhythm and S1/S2; Negative Murmur
Neuro: Negative Awake or Alert
Psych: Calm
[2023-11-22] MEDS: LUMINAL 32.4 MG PO ×2 (17:30→21:50)
[2023-11-22] MEDS: LOVENOX 40 MG SC (17:30)
[2023-11-23] VITALS (15 sets, daily range): BP systolic 117–170; BP diastolic 70–114; PULSE 85
--- NOTE | 2023-11-23 04:51 | PTCARENOTE ---
Pt more alert overnight AAOx3. More depressed though. MSAS 0-5 throughout shift. Received 1 dose prn Ativan. Remains in B/L soft limb restraints with all 4 rails up. Able to slide himself down in bed and was able to scratch himself on his chin which
bled down his neck and onto blankets. Wound care given. Pt received CHG bath and linens changed. Attempted to obtain am labs but unable d/t no blood return from midline. Left hand/arm splint remains on and jennifer wrapped. Left hand and B/L upper
extremities ecchymotic. #30 CC on with vicente/tea colored urine in collection bag. Pt offered liquids with each assessment. Only drinking small amounts. Used called sinha for bedpan. Had one large loose brown bm in bedpan. Buttocks with MASD calazime
cream applied. VSS. Afebrile. SR on CM. Rest of assessment as documented. Remains on Q2 hr turns. Call sinha remains at right hand. Will continue to monitor.
[2023-11-23 05:11] LABS: ALT (SGPT) 25 U/L (0-50); AST (SGOT) 28 U/L (17-59); Albumin 3.8 g/dl (3.5-5.0); Alkaline Phosphatase 81 U/L (38-126); Blood Urea Nitrogen 8 mg/dl (9-20); Calcium 9.5 mg/dl (8.4-10.2); Carbon Dioxide 25 mmol/L (22-30); Chloride 102 mmol/L (98-107); Estimated Creatinine Clearance > 125 ml/min; Glucose 98 mg/dl (70-99); Potassium 3.7 mmol/L (3.5-5.1); Sodium 138 mmol/L (135-145); Total Bilirubin 0.9 mg/dl (0.2-1.3); Total Protein 7.3 g/dl (6.3-8.2); eGFR > 60.00
[2023-11-23] MEDS: LUMINAL 32.4 MG PO ×3 (08:13→21:33)
[2023-11-23] MEDS: KLOR-CON 40 MEQ PO (08:13)
[2023-11-23] MEDS: FOLVITE 1 MG PO (08:14)
[2023-11-23] MEDS: THIAMINE INJECTION 200 MG IV ×2 (08:14→20:14)
[2023-11-23] MEDS: NICODERM TRANSDERMAL TRANSDERM ×2 (08:14→11:57)
--- NOTE | 2023-11-23 12:46 | W.PN.UPDATE ---
Update Note
Progress Note Update
Patient is presently calm, not agitated and is in stab;e mood and cooperative. Cognitively he is oriented in all spheres. He does have a limited calculation ability but immediate recall is improving.
Discussed the need for rehab with him and his brother, at this point he is agreeable.
Will continue F/U.
--- NOTE | 2023-11-23 12:47 | W.PN.HOSP.TC ---
Today's Communication/Plan
-
continue alc withdrawal management
d/c restraints
OOB in chair if mentation appropriate
Assessment / Plan
Assessment / Plan
1. Alcohol withdrawal
Alcohol use disorder
Minor transaminitis suspected from alcohol use related liver injury
-Patient has a history of significant alcohol use and related issues. Has a history of alcohol withdrawal.
-Patient was initially started on as needed Ativan and MSAS protocol
-Phenobarbital protocol added as well and patient was being tapered off although started having rebound withdrawal symptoms. Patient reinitiated on phenobarb protocol
-MSAS score has came down and patient was more coherent in the morning
-Maintain on IV thiamine/folate
-Psychiatry lowered phenobarbital dose. Patient waking up today. Will do a trial of taking off restraints.
2. Left hand first metacarpal fracture
-Patient had a fall in hospital while trying to walk to the bathroom
-Wrist x-ray showing mildly displaced impacted fracture of the proximal aspect of first metacarpal bone
-Evaluated by orthopedic surgeon and thumb spica splint placed. This to be maintained for 4 to 6 weeks with patient follow-up in office in 3 weeks.
3. Left-sided facial droop/dysarthria
-Patient had episode of facial droop/dysarthria and aphasia
-Neurology involving care and patient underwent CTA head and neck/MRI brain and ruled out any stroke
-Patient to be continue to monitor at this point for any new neurological deficits
4. Hypokalemia
Hypomagnesemia
-Replace potassium/magnesium as needed
5. Right upper extremity edema
-Venous ultrasound was negative for DVT in right upper extremity
6. Leukocytosis -reactive
-resolved at this point.
Diet: Regular
DVT proph: Lovenox
Anticipated Discharge: 24 - 48 hours
Subjective/Interval History
-
Date of Service: November 23, 2023
Patient mentation is better, waking up
Requesting to be taken off of restraints, mood is calm
no acute events reported
Objective Data
-
Labs:
Laboratory Results
11/23/23
04:27
Sodium 138
Potassium 3.7
Chloride 102
Carbon Dioxide 25
BUN 8 L
Creatinine 0.6 L
Glucose 98
Calcium 9.5
Total Bilirubin 0.9
AST 28
ALT 25
Alkaline Phosphatase 81
Vital Signs:
Vital Signs
Temp Pulse Resp BP Pulse Ox
98.2 F 84 19 155/76 98
11/23/23 07:53 11/23/23 08:00 11/23/23 08:00 11/23/23 08:00 11/23/23 09:51
I&O
11/22/23 11/23/23 11/24/23
06:59 06:59 06:59
Intake Total 240 / 240 200 / 200
Output Total 950 / 950 400 / 400
Balance -710 / -710 -200 / -200
Review of Systems
-
Respiratory: Reports No Symptoms
Cardiac: Reports No Symptoms
Abdomen/GI: Reports No Symptoms
Physical Exam
-
General: Negative Appears in Distress
HEENT: Negative Oxygen
Respiratory: Clear to Auscultation
Cardiac: Regular Rhythm and S1/S2; Negative Murmur
Neuro: Negative Awake or Alert
Psych: Calm
--- NOTE | 2023-11-23 15:10 | PTCARENOTE ---
pt oriented x 3 sleeping at intervals but awakens easily. b/l wrist restaints removed and pt has not attempted to pull ivs, monitor wires . medsitter in place. pt has not required ativan per msas so far during this shift.
[2023-11-23] MEDS: LOVENOX 40 MG SC (17:30)
--- NOTE | 2023-11-23 20:09 | PTCARENOTE ---
Received pt from [facility]. Pt is AAOx3, MSAS per protocol. NSR/sinus tach on the monitor. On RA, lungs diminished. C/c in place. Left arm brace and DARSHANA wrap in place. Bed alarm and medsitter in place. Pt is laying in bed with call sinha in reach.
[2023-11-23] MEDS: MELATONIN 5 MG PO (22:24)
[2023-11-23] MEDS: APRESOLINE 10 MG IV (23:14)
[2023-11-24] VITALS (15 sets, daily range): BP systolic 83–158; BP diastolic 45–90; BMI 20.8
--- NOTE | 2023-11-24 00:25 | PTCARENOTE ---
Pt c/o leg and left arm pain, offered pt PRN Tylenol pt states he does not want to take anything.
[2023-11-24 04:10] LABS: ALT (SGPT) 21 U/L (0-50); AST (SGOT) 25 U/L (17-59); Albumin 3.2 g/dl (3.5-5.0); Alkaline Phosphatase 67 U/L (38-126); Blood Urea Nitrogen 8 mg/dl (9-20); Calcium 9.1 mg/dl (8.4-10.2); Carbon Dioxide 26 mmol/L (22-30); Chloride 100 mmol/L (98-107); Estimated Creatinine Clearance > 125 ml/min; Glucose 104 mg/dl (70-99); Potassium 3.8 mmol/L (3.5-5.1); Sodium 134 mmol/L (135-145); Total Bilirubin 0.6 mg/dl (0.2-1.3); Total Protein 6.4 g/dl (6.3-8.2); eGFR > 60.00
[2023-11-24] MEDS: LUMINAL 32.4 MG PO (08:36)
[2023-11-24] MEDS: FOLVITE 1 MG PO (08:36)
[2023-11-24] MEDS: THIAMINE INJECTION 200 MG IV ×2 (08:37→19:45)
[2023-11-24] MEDS: KLOR-CON 40 MEQ PO (08:37)
[2023-11-24] MEDS: NICODERM TRANSDERMAL 7 MG TRANSDERM (08:40)
--- NOTE | 2023-11-24 08:53 | PTCARENOTE ---
Pt sitting up in bed eating breakfast . AAOx3, forgetful . Pt on room air at 96% R midline flushes no blood return. L arm jennifer wrapped . Took meds without incident.
--- NOTE | 2023-11-24 13:31 | W.PN.UPDATE ---
Update Note
Progress Note Update
I saw and evaluated the patient. I reviewed the resident�s note and agree with findings and plan as documented in the resident�s note.
No issues overnight. Patient is more awake
reported good apatite.
1. Alcohol withdrawal - Improved
Alcohol use disorder
Minor transaminitis suspected from alcohol use related liver injury
-Patient has a history of significant alcohol use and related issues. Has a history of alcohol withdrawal.
-Patient was initially started on as needed Ativan and MSAS protocol
-Phenobarbital protocol added as well and patient was being tapered off although started having rebound withdrawal symptoms. Patient reinitiated on phenobarb protocol
-Maintain on IV thiamine/folate
-Patient MSAS course remained 0-2. finished phenobarbital protocol.
-Off of restraints
2. Left hand first metacarpal fracture
-Patient had a fall in hospital while trying to walk to the bathroom
-Wrist x-ray showing mildly displaced impacted fracture of the proximal aspect of first metacarpal bone
-Evaluated by orthopedic surgeon and thumb spica splint placed. This to be maintained for 4 to 6 weeks with patient follow-up in office in 3 weeks.
3. Left-sided facial droop/dysarthria
-Patient had episode of facial droop/dysarthria and aphasia
-Neurology involving care and patient underwent CTA head and neck/MRI brain and ruled out any stroke
-Patient to be continue to monitor at this point for any new neurological deficits
4. Hypokalemia
Hypomagnesemia
-Replace potassium/magnesium as needed
5. Right upper extremity edema
-Venous ultrasound was negative for DVT in right upper extremity
6. Leukocytosis -reactive
-resolved at this point.
Diet: Regular
DVT proph: Lovenox
Transfer to med/surg
Needs rehab placement
--- NOTE | 2023-11-24 14:52 | W.PN.HOSP.TC ---
Today's Communication/Plan
-
Transfer to [facility]
Completed phenobarbital protocol
Needs rehab placement
Assessment / Plan
Assessment / Plan
63 yo M, Mr. Michael Evans, with H alcohol use disorder and anxiety who presented for alcohol use disorder, admitted and managed for alcohol withdrawal symptoms.
Impression/plan
1. Alcohol withdrawal
Alcohol use disorder
Minor transaminitis suspected from alcohol use related liver injury
-Patient has a history of significant alcohol use and related issues. Has a history of alcohol withdrawal.
-Patient was initially started on as needed Ativan and MSAS protocol
-Phenobarbital protocol added as well and patient was being tapered off although started having rebound withdrawal symptoms. Patient reinitiated on phenobarb protocol
-Maintain on IV thiamine/folate
Patient off of restraints. No episodes of agitation overnight.
Patient's MSAS score ranged between 0�2. Finished phenobarbital protocol.
2. Left hand first metacarpal fracture
-Patient had a fall in hospital while trying to walk to the bathroom
-Wrist x-ray showing mildly displaced impacted fracture of the proximal aspect of first metacarpal bone
-Evaluated by orthopedic surgeon and thumb spica splint placed. This to be maintained for 4 to 6 weeks with patient follow-up in office in 3 weeks.
Good distal capillary refill.
3. Left-sided facial droop/dysarthria
-Patient had episode of facial droop/dysarthria and aphasia
-Neurology involving care and patient underwent CTA head and neck/MRI brain and ruled out any stroke
-Patient to be continue to monitor at this point for any new neurological deficits
4. Hypokalemia/ Hypomagnesemia
-Replace potassium/magnesium as needed
5. Right upper extremity edema
-Venous ultrasound was negative for DVT in right upper extremity
6. Leukocytosis -reactive
-resolved at this point.
Transfer to [facility]
Disposition: Needs rehab placement
Diet: Regular
DVT proph: Lovenox
Anticipated Discharge: Within 24 hours
Subjective/Interval History
-
Date of Service: November 24, 2023
Patient is not on restraints. Patient reports having nightmares yesterday.
Objective Data
-
Labs:
Laboratory Results
11/24/23
03:26
Sodium 134 L
Potassium 3.8
Chloride 100
Carbon Dioxide 26
BUN 8 L
Creatinine 0.6 L
Glucose 104 H
Calcium 9.1
Total Bilirubin 0.6
AST 25
ALT 21
Alkaline Phosphatase 67
Vital Signs:
Vital Signs
Temp Pulse Resp BP Pulse Ox
98 F 69 21 130/64 96
11/24/23 11:26 11/24/23 14:00 11/24/23 14:00 11/24/23 14:00 11/24/23 08:58
I&O
11/23/23 11/24/23 11/25/23
06:59 06:59 06:59
Intake Total 200 / 200 1850 / 1850 240 / 240
Output Total 400 / 400 1500 / 1500
Balance -200 / -200 350 / 350 240 / 240
Review of Systems
-
All other systems: Reviewed and negative (As per history)
Physical Exam
-
General: No Apparent Distress and Comfortable
HEENT: Normocephalic and Atraumatic
Respiratory: Clear to Auscultation
Cardiac: Regular Rhythm and S1/S2
GI: Soft, Nontender, Nondistended and Normal Bowel Sounds
Skin: Warm and Dry
Neuro: Awake, Alert, Oriented and AO x 3
Psych: Calm
[2023-11-24] MEDS: LOVENOX 40 MG SC (17:38)
[2023-11-24] MEDS: MELATONIN 5 MG PO (21:14)
[2023-11-25] VITALS (11 sets, daily range): BP systolic 115–163; BP diastolic 65–97; PULSE 80; O2SAT 100
--- NOTE | 2023-11-25 00:37 | PTCARENOTE ---
ax3 [place]- sinus tach afebrile bp wnl- no distress of any kind- was on room air now cpap. daughter and pt updated on poc- pt for tx to [facility] pending room adaptability. labs sent-
--- NOTE | 2023-11-25 05:05 | PTCARENOTE ---
several large loose bm's sometimes inc- pt frustrated and embarrassed- wants to go home ax3- no ativan needed for msas-
[2023-11-25 05:21] LABS: Platelet Count 419 10^3/uL (130-400)
[2023-11-25 05:37] LABS: Hematocrit 31.1 % (39.0-52.0); Hemoglobin 10.7 g/dL (13.0-18.0); Mean Corp Hgb Conc. 34.4 g/dL (33.0-37.0); Mean Corpuscular Hgb 33.5 pg (27.0-31.0); Mean Corpuscular Volume 97.5 fL (80.0-94.0); Mean Platelet Volume 9.1 fL (7.4-10.4); Red Blood Cell Count 3.19 10^6/uL (4.70-6.10); Red Cell Dist. Width 11.8 % (11.5-14.5); White Blood Cell Count 9.4 10^3/uL (4.8-10.8)
[2023-11-25 05:41] LABS: ALT (SGPT) 25 U/L (0-50); AST (SGOT) 33 U/L (17-59); Albumin 3.5 g/dl (3.5-5.0); Alkaline Phosphatase 75 U/L (38-126); Blood Urea Nitrogen 7 mg/dl (9-20); Calcium 9.3 mg/dl (8.4-10.2); Carbon Dioxide 30 mmol/L (22-30); Chloride 99 mmol/L (98-107); Estimated Creatinine Clearance > 125 ml/min; Glucose 107 mg/dl (70-99); Sodium 136 mmol/L (135-145); Total Bilirubin 0.5 mg/dl (0.2-1.3); Total Protein 6.9 g/dl (6.3-8.2); eGFR > 60.00
--- NOTE | 2023-11-25 09:06 | W.PN.HOSP.TC ---
Today's Communication/Plan
-
Continue monitor for signs of alcohol withdrawal
Continue disposition conversation with case management, trying to find placement to either alcohol rehab or physical rehab
Assessment / Plan
Assessment / Plan
Impression/plan
63 yo M, Mr. Michael Evans, with H alcohol use disorder and anxiety who presented for alcohol use disorder, admitted and managed for alcohol withdrawal symptoms.
1. Alcohol withdrawal
Alcohol use disorder
Minor transaminitis suspected from alcohol use related liver injury
-Patient has a history of significant alcohol use and related issues. Has a history of alcohol withdrawal.
-Patient was initially started on as needed Ativan and MSAS protocol
-Phenobarbital protocol added as well and patient was being tapered off although started having rebound withdrawal symptoms. Patient reinitiated on phenobarb protocol
-Maintain on IV thiamine/folate
-Patient off of restraints. No episodes of agitation overnight.
-Patient's MSAS score ranged between 0�2. Finished phenobarbital protocol.
-Patient currently unsure if he wants alcohol rehab. Patient will require physical rehab at least as he is deconditioned, PT will continue working with him
2. Left hand first metacarpal fracture
-Patient had a fall in hospital while trying to walk to the bathroom
-Wrist x-ray showing mildly displaced impacted fracture of the proximal aspect of first metacarpal bone
-Evaluated by orthopedic surgeon and thumb spica splint placed. This to be maintained for 4 to 6 weeks with patient follow-up in office in 3 weeks.
-Good distal capillary refill.
3. Left-sided facial droop/dysarthria
-Patient had episode of facial droop/dysarthria and aphasia
-Neurology involving care and patient underwent CTA head and neck/MRI brain and ruled out any stroke
-Continue to monitor for any new focal neurological deficits
4. Hypokalemia/ Hypomagnesemia
-Hypokalemia has resolved, 4.0 this morning
-Recheck magnesium ordered as add-on
-Replace potassium/magnesium as needed
5. Right upper extremity edema
-Venous ultrasound was negative for DVT in right upper extremity
6. Leukocytosis -reactive
-resolved at this point.
Transfer to [facility]
Disposition: Needs rehab placement
Diet: Regular
DVT proph: Lovenox
Anticipated Discharge: 24 - 48 hours
Subjective/Interval History
-
Date of Service: November 25, 2023
No acute events overnight
M SAS score this morning 2
Objective Data
-
Labs:
Laboratory Results
11/25/23
04:54
WBC 9.4
Hgb 10.7 L
Hct 31.1 L
Plt Count 419 H D
Sodium 136
Potassium 4.0
Chloride 99
Carbon Dioxide 30
BUN 7 L
Creatinine 0.6 L
Glucose 107 H
Calcium 9.3
Total Bilirubin 0.5
AST 33
ALT 25
Alkaline Phosphatase 75
Vital Signs:
Vital Signs
Temp Pulse Resp BP Pulse Ox
98.4 F 68 13 115/97 99
11/25/23 06:58 11/25/23 08:00 11/25/23 08:00 11/25/23 08:00 11/25/23 06:58
I&O
11/24/23 11/25/23 11/26/23
06:59 06:59 06:59
Intake Total 1850 / 1850 240 / 240
Output Total 1500 / 1500 750 / 750 650 / 650
Balance 350 / 350 -510 / -510 -650 / -650
Review of Systems
-
History Source: Patient
Constitutional: Reports No Symptoms
Respiratory: Reports No Symptoms
Cardiac: Reports No Symptoms
Abdomen/GI: Reports Diarrhea
Musculoskeletal: Reports Other (Left wrist pain, currently in splint)
Physical Exam
-
General: Well Developed, Well Nourished, No Apparent Distress, Comfortable and Conversant; Negative Slurred Speech
Respiratory: Clear to Auscultation
Cardiac: Regular Rhythm and S1/S2
GI: Soft, Nontender, Nondistended and Normal Bowel Sounds
Neuro: Awake
Data Reviewed
-
Labs: Labs Reviewed by me and Discussed with Physician
[2023-11-25] MEDS: THIAMINE INJECTION 200 MG IV ×2 (10:39→20:04)
[2023-11-25] MEDS: FOLVITE 1 MG PO (10:40)
[2023-11-25] MEDS: NICODERM TRANSDERMAL TRANSDERM (10:40)
[2023-11-25] MEDS: IMODIUM 2 MG PO ×2 (10:40→16:43)
[2023-11-25] MEDS: KLOR-CON 40 MEQ PO (10:40)
--- NOTE | 2023-11-25 12:14 | CM ---
Patient with Dx Alcohol Use Disorder / Alcohol Withdrawal Syndrome/ DTs, left wrist Fx after fall, Dysarthria, hypokalemia. Room air. Receiving IV Ativan prn, Phenobarb taper. Seen by Psych. MSAS.
PT 11/22; requires mod assist 2 for transfers, min to mod assist of 2 for ambulation, recommend skilled rehab.
OT 11/18: requires assist of 2, dependent for LE self care, recommend skilled rehab.
Spoke with Rickey PT; he tried to work with the patient who declined saying he had diarrhea. PT will try again later today.
Met with patient; he is receptive to going to SNF for rehab as needed. He has no SNF preferences.
SNF referrals placed.
Will need updated PT/OT notes when possible.
Will need insurance auth for SNF.
Plan follow up after seen by PT/OT again.
Plan follow up SNF referrals.
--- NOTE | 2023-11-25 12:43 | W.PN.UPDATE ---
Update Note
Progress Note Update
Patient is not feeling well today, has diarrhoea and not willing to talk. He is not agitated or aggressive and not requiring restraints.
Still agreeable to going to rehab .
Will continue F/U.
--- NOTE | 2023-11-25 12:49 | CM ---
Patient with Dx Alcohol Use Disorder / Alcohol Withdrawal Syndrome/ DTs, left wrist Fx after fall, Dysarthria, hypokalemia. Room air. Receiving IV Ativan prn. Seen by Psych. NAOMI.
PT 11/22; requires mod assist 2 for transfers, min to mod assist of 2 for ambulation, recommend skilled rehab.
OT 11/18: requires assist of 2, dependent for LE self care, recommend skilled rehab.
Spoke with Rickey PT; he tried to work with the patient who declined saying he had diarrhea. PT will try again later today.
Met with patient; he is receptive to going to SNF for rehab as needed. He has no SNF preferences. Patient states he has a place to stay in [place] after SNF but did not elaborate. He said he wasn't feeling well and did not want to talk further
right now.
SNF referrals placed.
Will need updated PT/OT notes when possible.
Will need insurance auth for SNF.
Plan follow up after seen by PT/OT again.
Plan follow up SNF referrals.
--- NOTE | 2023-11-25 13:33 | PTCARENOTE ---
Pt continues to be calm and cooperative with staff, however withdrawn and refusing to participate with PT, or talk with psych. Pt c/o ongoing diarrhea which he states is a lifelong problem. Loperamide ordered by attending. Pt apologizing repeatedly
to staff. Refusing any hygiene care or assistance. Placing self off and on bedpan, refusing to let RN assist. Also refusing any oral care. Pt awaiting med surg bed at this time. Call sinha in reach.
--- NOTE | 2023-11-25 14:53 | PTCARENOTE ---
Pt feels like he is having panic attack, Dr. Amezquita contacted for orders, will place PRN Ativan. Pt allowed RN to clean him up and place him onto bedpan. Loose brn stool continues.
[2023-11-25] MEDS: TYLENOL 650 MG PO (15:12)
[2023-11-25] MEDS: ATIVAN PO (15:12)
[2023-11-25] MEDS: ATIVAN 0.5 MG PO (15:12)
--- NOTE | 2023-11-25 15:16 | PTCARENOTE ---
Patient assisted by PT/OT into bathroom to brush teeth and use toilet. Pt assisted to chair, much emotional support and encouragement required. PRN Ativan and Tylenol administered at this time, see MAR for times.
--- NOTE | 2023-11-25 15:24 | W.PN.UPDATE ---
Update Note
Progress Note Update
I saw and evaluated the patient. I reviewed the resident�s note and agree with findings and plan as documented in the resident�s note.
No complains overnight . Mentation remains good, off of restraints.
1. Alcohol withdrawal - Improved
Alcohol use disorder
Minor transaminitis suspected from alcohol use related liver injury
-Patient has a history of significant alcohol use and related issues. Has a history of alcohol withdrawal.
-Patient was initially started on as needed Ativan and MSAS protocol
-Phenobarbital protocol added as well and patient was being tapered off although started having rebound withdrawal symptoms. Patient reinitiated on pheno-dinesh protocol, now off of it.
-Patient not interested in alcohol rehab
2. Left hand first metacarpal fracture
-Patient had a fall in hospital while trying to walk to the bathroom
-Wrist x-ray showing mildly displaced impacted fracture of the proximal aspect of first metacarpal bone
-Evaluated by orthopedic surgeon and thumb spica splint placed. This to be maintained for 4 to 6 weeks with patient follow-up in office in 3 weeks.
3. Left-sided facial droop/dysarthria
-Patient had episode of facial droop/dysarthria and aphasia
-Neurology involving care and patient underwent CTA head and neck/MRI brain and ruled out any stroke
-Patient to be continue to monitor at this point for any new neurological deficits
4. Hypokalemia
Hypomagnesemia
-Replace potassium/magnesium as needed
-Check phos level for tomorrow.
5. Right upper extremity edema
-Venous ultrasound was negative for DVT in right upper extremity
6. Leukocytosis -reactive
-resolved at this point.
DVT prophylaxis: Lovenox
Patient will need SNF rehab placement.
--- NOTE | 2023-11-25 15:44 | PTCARENOTE ---
Room assigned on . Attempt to call report x1, RN will call back when available. Pt's brother in room to visit.
[2023-11-25] MEDS: LOVENOX 40 MG SC (17:43)
[2023-11-25] MEDS: MELATONIN 5 MG PO (20:08)
[2023-11-26 05:46] VITALS: BMI 20.1
[2023-11-26 06:49] LABS: Hematocrit 32.8 % (39.0-52.0); Hemoglobin 11.3 g/dL (13.0-18.0); Mean Corp Hgb Conc. 34.5 g/dL (33.0-37.0); Mean Corpuscular Hgb 34.3 pg (27.0-31.0); Mean Corpuscular Volume 99.7 fL (80.0-94.0); Mean Platelet Volume 9.4 fL (7.4-10.4); Platelet Count 501 10^3/uL (130-400); Red Blood Cell Count 3.29 10^6/uL (4.70-6.10); Red Cell Dist. Width 11.8 % (11.5-14.5); White Blood Cell Count 10.5 10^3/uL (4.8-10.8)
[2023-11-26 07:16] VITALS: BP 124/89
[2023-11-26 07:24] LABS: Blood Urea Nitrogen 7 mg/dl (9-20); Calcium 9.6 mg/dl (8.4-10.2); Carbon Dioxide 24 mmol/L (22-30); Chloride 105 mmol/L (98-107); Estimated Creatinine Clearance 105 ml/min; Glucose 97 mg/dl (70-99); Magnesium 1.6 mg/dl (1.6-2.3); Phosphorus 4.7 mg/dl (2.5-4.5); Potassium 4.6 mmol/L (3.5-5.1); Sodium 137 mmol/L (135-145); eGFR > 60.00
--- NOTE | 2023-11-26 08:50 | W.PN.HOSP.TC ---
Addendum entered and electronically signed by Esequiel Millan MD 11/26/23 12:49:
I saw and evaluated the patient. I reviewed the resident�s note and agree with findings and plan as documented in the resident�s note.
Patient clinically stable at this point and appropriate for discharge planning/rehabilitation placement
Discontinue further MSAS evaluation.
Continue monitoring electrolytes periodically.
Discussed with CM and will be transferred to rehab once approved.
Original Note:
Today's Communication/Plan
-
Continue working with physical therapy
Continue working towards [facility] facility discharge
Assessment / Plan
Assessment / Plan
Impression/plan
63 yo M, Mr. Michael Evans, with [facility] alcohol use disorder and anxiety who presented for alcohol use disorder, admitted and managed for alcohol withdrawal symptoms.
1. Alcohol withdrawal
Alcohol use disorder
Minor transaminitis suspected from alcohol use related liver injury
-Patient has a history of significant alcohol use and related issues. Has a history of alcohol withdrawal.
-Patient was initially started on as needed Ativan and MSAS protocol
-Phenobarbital protocol added as well and patient was being tapered off although started having rebound withdrawal symptoms. Patient reinitiated on phenobarb protocol. Phenobarbital protocol has been discontinued
-Maintain on IV thiamine/folate
-Patient off of restraints. No episodes of agitation overnight.
-Patient's MSAS score ranged between 0�2.
-MSAS will be discontinued
-Patient currently unsure if he wants alcohol rehab. Patient will require physical rehab at least as he is deconditioned, PT will continue working with him
2. Left hand first metacarpal fracture
-Patient had a fall in hospital while trying to walk to the bathroom
-Wrist x-ray showing mildly displaced impacted fracture of the proximal aspect of first metacarpal bone
-Evaluated by orthopedic surgeon and thumb spica splint placed. This to be maintained for 4 to 6 weeks with patient follow-up in office in 3 weeks.
-Good distal capillary refill.
3. Left-sided facial droop/dysarthria
-Patient had episode of facial droop/dysarthria and aphasia
-Neurology involving care and patient underwent CTA head and neck/MRI brain and ruled out any stroke
-Continue to monitor for any new focal neurological deficits
4. Hypokalemia/ Hypomagnesemia/hypophosphatemia
-Hypokalemia has resolved, 4.6 this morning
-Recheck magnesium was normal, 1.6
-Recheck phosphorus was 4.7, high
-Replace potassium/magnesium as needed
5. Right upper extremity edema
-Venous ultrasound was negative for DVT in right upper extremity
6. Leukocytosis -reactive
-resolved at this point.
Disposition: Needs rehab placement
Diet: Regular
DVT proph: Lovenox
Anticipated Discharge: Within 24 hours
Subjective/Interval History
-
Date of Service: November 26, 2023
Patient sitting in chair, pleasant and oriented
No longer requiring restraints
Objective Data
-
Labs:
Laboratory Results
11/26/23
06:01
WBC 10.5
Hgb 11.3 L
Hct 32.8 L
Plt Count 501 H
Sodium 137
Potassium 4.6
Chloride 105
Carbon Dioxide 24
BUN 7 L
Creatinine 0.7
Glucose 97
Calcium 9.6
Vital Signs:
Vital Signs
Temp Pulse Resp BP Pulse Ox
98.6 F 73 18 132/92 99
11/25/23 22:33 11/25/23 22:33 11/25/23 22:33 11/25/23 22:33 11/25/23 22:33
I&O
11/25/23 11/26/23 11/27/23
06:59 06:59 06:59
Intake Total 240 / 240 120 / 120
Output Total 750 / 750 1050 / 1050
Balance -510 / -510 -930 / -930
Review of Systems
-
History Source: Patient
Constitutional: Reports No Symptoms
Respiratory: Reports No Symptoms
Cardiac: Reports No Symptoms
Abdomen/GI: Reports No Symptoms
Physical Exam
-
General: Well Developed, Well Nourished, No Apparent Distress, Comfortable and Conversant
Respiratory: Clear to Auscultation
Cardiac: Regular Rhythm and S1/S2
GI: Soft, Nontender, Nondistended and Normal Bowel Sounds
Musculoskeletal: No Edema
Skin: Warm and Dry
Neuro: Awake, Alert, Oriented and AO x 3
Psych: Calm and Intact Judgement/Insight
Data Reviewed
-
Labs: Labs Reviewed by me and Discussed with Physician
[2023-11-26] MEDS: KLOR-CON 40 MEQ PO (09:20)
[2023-11-26] MEDS: FOLVITE 1 MG PO (09:55)
[2023-11-26] MEDS: THIAMINE INJECTION 200 MG IV ×2 (09:55→21:54)
[2023-11-26] MEDS: NICODERM TRANSDERMAL TRANSDERM ×2 (09:55→10:01)
--- NOTE | 2023-11-26 11:40 | W.PN.UPDATE ---
Update Note
Progress Note Update
patient seen chart reviewed. discussed with nursing and with case mgt. the patient is much better compared to the man i saw last week. he is able to hold a coherent conversation. he seems to have been developing some insight. he is now saying he
wants to go to snf and to rehab after for etoh. we talked about the ravages of etoh upon his body. he spoke of how unsteady he feels on his feet and i explained to him why that was likely related at least in part to his etoh abuse. he seems to have
made it through the wd period. he used an ativan last night for anxiety but not for msas which was last several days ago. he asked if his vit d level had been checked. he has been told he has vit d def ordered it for tomorrow am. tells me
they have found an snf for him. he will need to be off med sitter for 24 hours he was off when i saw him and was aware not to get up without calling staff. he told me he knew he needed assist and pointed to the walker in the room. will see him in
the am.
[2023-11-26] MEDS: TYLENOL 650 MG PO ×2 (13:18→21:53)
[2023-11-26] MEDS: ATIVAN 0.5 MG PO (13:20)
[2023-11-26 16:00] VITALS: BP 128/87
[2023-11-26] MEDS: LOVENOX 40 MG SC (18:41)
[2023-11-26] MEDS: MELATONIN 5 MG PO (21:53)
[2023-11-26 23:42] VITALS: BP 137/80
[2023-11-27] MEDS: ATIVAN 0.5 MG PO ×2 (02:16→08:28)
[2023-11-27 06:31] LABS: Hematocrit 33.5 % (39.0-52.0); Hemoglobin 11.4 g/dL (13.0-18.0); Mean Corpuscular Hgb 34.2 pg (27.0-31.0); Mean Corpuscular Volume 100.6 fL (80.0-94.0); Mean Platelet Volume 9.1 fL (7.4-10.4); Platelet Count 502 10^3/uL (130-400); Red Blood Cell Count 3.33 10^6/uL (4.70-6.10); Red Cell Dist. Width 11.7 % (11.5-14.5); White Blood Cell Count 10.5 10^3/uL (4.8-10.8)
[2023-11-27 06:51] LABS: Blood Urea Nitrogen 7 mg/dl (9-20); Calcium 9.4 mg/dl (8.4-10.2); Carbon Dioxide 23 mmol/L (22-30); Chloride 101 mmol/L (98-107); Estimated Creatinine Clearance 105 ml/min; Glucose 96 mg/dl (70-99); Potassium 4.2 mmol/L (3.5-5.1); Sodium 137 mmol/L (135-145); eGFR > 60.00
[2023-11-27 07:05] LABS: Vitamin D, 25-OH*** < 12.8 ng/mL (30-80)
[2023-11-27 07:53] VITALS: BP 133/81
--- NOTE | 2023-11-27 07:55 | CM ---
Late Entry note:
CM received call on 11/25 from Katiana at [facility] and they can accept patient and have a bed available pending insurance authorization.
CM called [phone] to get insurance auth for SNF
Spoke with Pablo who then connected me to Rhonda.
Rhonda ([phone]) stated for CM to fax clinicals over to her. CM faxed at 4:30pm 11/25. Await auth.
CM gave her NPI # for [facility] SNF.
Spoke with patient & brother regarding bed availability, but need to get ins auth.
PLAN: [facility], pending insurance auth.
Transport via ambulance
[2023-11-27] MEDS: THIAMINE INJECTION 200 MG IV ×2 (08:29→20:28)
[2023-11-27] MEDS: FOLVITE 1 MG PO (08:29)
[2023-11-27] MEDS: FLUSH (NSS) 2 FLUSH IV ×2 (08:29→15:27)
[2023-11-27] MEDS: NICODERM TRANSDERMAL 7 MG TRANSDERM (08:30)
[2023-11-27] MEDS: KLOR-CON 40 MEQ PO (08:30)
--- NOTE | 2023-11-27 08:36 | W.PN.HOSP.TC ---
Addendum entered and electronically signed by Esequiel Millan MD 11/27/23 13:05:
I saw and evaluated the patient. I reviewed the resident�s note and agree with findings and plan as documented in the resident�s note.
Patient anxious and scared today. Reporting to having nightmare and some sleep disturbance.
Patient reports to have sleepwalking although not true. Walked to bathroom by night tech likely.
Question of repeat withdrawal. Patient last drink at this point 14 days back and already finished course of phenobarbital. No other objective vital instability. This is not alcohol withdrawal.
Monitor patient for any new infection.
Patient may just have generalized anxiety disorder going on, will provide anxiolytics/xanax 0.25mg
Case discussed with psychiartrist.
Original Note:
Today's Communication/Plan
-
PT OT, case management work on retirement facility placement
Assessment / Plan
Assessment / Plan
Impression/plan
63 yo M, Mr. Michael Evans, with [facility] alcohol use disorder and anxiety who presented for alcohol use disorder, admitted and managed for alcohol withdrawal symptoms.
#Alcohol withdrawal
Alcohol use disorder
Minor transaminitis suspected from alcohol use related liver injury
-Patient has a history of significant alcohol use and related issues. Has a history of alcohol withdrawal.
-Patient was initially started on as needed Ativan and MSAS protocol
-Phenobarbital protocol added as well and patient was being tapered off although started having rebound withdrawal symptoms. Patient reinitiated on phenobarb protocol. Phenobarbital protocol has been discontinued
-Maintain on IV thiamine/folate
-Patient off of restraints. Patient reports on episode of nightmare/hallucination overnight. Per patient he got up and ran down the halls as he thought he was late for work.
-Per nursing patient did have a nightmare and woke up at night but did not get up and run down the halls.
-Patient reports difficulty sleeping,
-MSAS will be discontinued
-Patient currently unsure if he wants alcohol rehab. Patient will require physical rehab at least as he is deconditioned, PT will continue working with him
-Case management currently needs PT OT assessment to place in SNF, PT OT consult placed
# Left hand first metacarpal fracture
-Patient had a fall in hospital while trying to walk to the bathroom
-Wrist x-ray showing mildly displaced impacted fracture of the proximal aspect of first metacarpal bone
-Evaluated by orthopedic surgeon and thumb spica splint placed. This to be maintained for 4 to 6 weeks with patient follow-up in office in 3 weeks.
-Good distal capillary refill.
#Nightmares
Patient endorses nightmares that are waking up from sleep, the some going on for the past couple nights
Overnight patient had a nightmare/hallucination that he was late for work and per his own words he got up and ran down the halls
Upon asking nursing they reported that he did wake up and did have a nightmare however he did not get up out of bed and run through the halls
Psychiatry was consulted regarding these nightmares and potential treatment
Psychiatry recommended not giving the patient any benzodiazepines
# Left-sided facial droop/dysarthria
-Patient had episode of facial droop/dysarthria and aphasia
-Neurology involving care and patient underwent CTA head and neck/MRI brain and ruled out any stroke
-Continue to monitor for any new focal neurological deficits
# Hypokalemia/ Hypomagnesemia/hypophosphatemia
-Hypokalemia has resolved, 4.2 this morning
-Last recheck magnesium was normal, 1.6
-Last recheck phosphorus was 4.7, high
-Replace potassium/magnesium as needed
#Right upper extremity edema
-Venous ultrasound was negative for DVT in right upper extremity
#Leukocytosis -reactive
-resolved at this point.
-Patient had a COVID exposure 11/21/2023, since then he has been asymptomatic
-COVID test ordered for tomorrow, what would be day 7 postexposure
Disposition: Needs rehab placement
Diet: Regular
DVT proph: Lovenox
Anticipated Discharge: 24 - 48 hours
Subjective/Interval History
-
Date of Service: November 27, 2023
According to the patient he had a nightmare last night and per his recollection he ran up and down the halls. Patient reports that he thought he was late for work, he was not hallucinating just dreaming.
Per nursing patient did have a nightmare and woke up, however he just needed to use the bathroom and afterwards he was fine and went back to sleep. Per nursing he did not get up and run through the halls.
Objective Data
-
Labs:
Laboratory Results
11/27/23
06:10
WBC 10.5
Hgb 11.4 L
Hct 33.5 L
Plt Count 502 H
Sodium 137
Potassium 4.2
Chloride 101
Carbon Dioxide 23
BUN 7 L
Creatinine 0.7
Glucose 96
Calcium 9.4
Vital Signs:
Vital Signs
Temp Pulse Resp BP Pulse Ox
97.8 F 69 16 133/81 98
11/27/23 07:53 11/27/23 07:53 11/27/23 07:53 11/27/23 07:53 11/27/23 07:53
I&O
11/26/23 11/27/23 11/28/23
06:59 06:59 06:59
Intake Total 120 / 120 1380 / 1380
Output Total 1050 / 1050 325 / 325
Balance -930 / -930 1055 / 1055
Review of Systems
-
History Source: Patient
Constitutional: Reports No Symptoms
Respiratory: Reports No Symptoms
Cardiac: Reports No Symptoms
Abdomen/GI: Reports No Symptoms
Physical Exam
-
General: Well Developed, Well Nourished and Conversant
Respiratory: Clear to Auscultation
Cardiac: Regular Rhythm and S1/S2
GI: Soft, Nontender, Nondistended and Normal Bowel Sounds
Neuro: Awake, Alert and Oriented; Negative Slurred Speech
Data Reviewed
-
Labs: Labs Reviewed by me and Discussed with Physician
--- NOTE | 2023-11-27 08:54 | CM ---
Addendum entered by Lakeshia Otto 11/27/23 13:35:
Call from Micaela at [facility]([phone]) Authorization obtained for SNF.
Authorization #: [id number]
Start 11/26 NRD: 12/02
Fax updated clinicals to [phone] (post acute coordinators Krista or Medina)
This information given to Katiana at [facility]
Addendum entered by Lakeshia Otto 11/27/23 12:48:
Case consult completed for [facility].
Spoke with Sebastián who will see the patient today & have patient sign a release so they can coordinate ETOH rehab after SNF with the [facility] [phone].
Discussed with Katiana in admissions.
Still await insurance authorization for SNF [facility] [phone].
[facility]
Report #: [phone]
Fax #: [phone]
Original Note:
Spoke with brother Mike regarding await ins. auth.
He was concerned that the patient would 'get lost' with going to ETOH rehab after SNF stay.
CM spoke with Katiana in admissions [phone] who states they have a rn social work at the hat can assist with referrals to ETOH rehab while the patient is in [facility].
DANNY also spoke with Sebastián from [facility] who stated [facility] also will follow up with patient/brother weekly after discharge from the hospital.
--- NOTE | 2023-11-27 11:30 | W.PN.UPDATE ---
Update Note
Progress Note Update
patient seen chart reviewed. spoke with dr puga. the patient had an episode during the night. he describes he woke from sleep and thought he should be getting to work and he was late. he walked out of the room ...staff reached him and helped him
back to bed. he was upset this am but remembered a lot of detail about the event which is curious. you would think if this was sleep walking or rem intrusion in an awake person he would not remember. he was able to talk about his anxiety that it
would happen again and this am he was NOT at all in a delirious state. we reiterated a lot of our discussion yesterday re sobriety. He is willing to go to rehab for etoh after snf. he is not wanting to take any other meds for psych eg bzp's etc.
will reorder [facility] consult i would like him to keep in touch w them through snf so they can help him plan for dc to etoh rehab after snf.
--- NOTE | 2023-11-27 12:00 | PTCARENOTE ---
This RN went in to assess pt this AM and pt was found extremely tremulous, nauseous, weak, and anxious stating 'i just feel scared of everything right now.' Comfort provided to the pt, PRN ativan administered, pt seemed to be calming down a bit.
Food ordered for pt and suggested some rest in the meantime while waiting for the medication to kick in. made aware, xanax ordered. Pt seeming to be in better spirits after a thorough conversation with this RN and a visit from [facility]. No
new orders at this time.
[2023-11-27] MEDS: TYLENOL 650 MG PO (12:42)
[2023-11-27] MEDS: ATIVAN 1 MG IV (15:25)
[2023-11-27] MEDS: NSS (PRESERVATIVE FREE) 0.5 ML IV (15:26)
[2023-11-27 15:40] VITALS: BP 134/81
--- NOTE | 2023-11-27 15:53 | PTCARENOTE ---
Pt seemingly anxious and tremulous again, made aware, decided to keep pt overnight to observe, one time 1mg IV ativan dose given per MD order. Pt resting comfortably in bed at this time.
[2023-11-27] MEDS: LOVENOX 40 MG SC (17:33)
[2023-11-27] MEDS: MELATONIN 5 MG PO (22:13)
[2023-11-27 22:37] VITALS: BP 129/89
[2023-11-28 05:31] VITALS: BMI 20.2
[2023-11-28 06:33] LABS: COVID-19 Antigen Negative (Negative)
[2023-11-28 07:00] VITALS: BP 130/87
[2023-11-28] MEDS: ALPRAZOLAM ODT 0.25 MG PO (08:23)
[2023-11-28] MEDS: TYLENOL 650 MG PO ×2 (08:23→17:31)
[2023-11-28] MEDS: IMODIUM 2 MG PO ×2 (08:23→17:31)
[2023-11-28] MEDS: KLOR-CON 40 MEQ PO (08:24)
[2023-11-28] MEDS: FOLVITE 1 MG PO (08:24)
[2023-11-28] MEDS: THIAMINE INJECTION 200 MG IV (08:25)
[2023-11-28] MEDS: NICODERM TRANSDERMAL TRANSDERM (08:25)
[2023-11-28 08:53] LABS: Hematocrit 33.1 % (39.0-52.0); Hemoglobin 11.3 g/dL (13.0-18.0); Mean Corp Hgb Conc. 34.1 g/dL (33.0-37.0); Mean Corpuscular Hgb 33.5 pg (27.0-31.0); Mean Corpuscular Volume 98.2 fL (80.0-94.0); Mean Platelet Volume 8.9 fL (7.4-10.4); Platelet Count 613 10^3/uL (130-400); Red Blood Cell Count 3.37 10^6/uL (4.70-6.10); Red Cell Dist. Width 11.8 % (11.5-14.5); White Blood Cell Count 11.1 10^3/uL (4.8-10.8)
--- NOTE | 2023-11-28 09:03 | W.PN.HOSP.TC ---
Today's Communication/Plan
-
d/c home
Assessment / Plan
Assessment / Plan
1. Alcohol withdrawal - Improved
Alcohol use disorder
Minor transaminitis suspected from alcohol use related liver injury
-Patient has a history of significant alcohol use and related issues. Has a history of alcohol withdrawal.
-Patient was initially started on as needed Ativan and MSAS protocol
-Phenobarbital protocol added as well and patient was being tapered off although started having rebound withdrawal symptoms. Patient reinitiated on pheno-dinesh protocol, now off of it.
-Patient not interested in alcohol rehab
2. Left hand first metacarpal fracture
-Patient had a fall in hospital while trying to walk to the bathroom
-Wrist x-ray showing mildly displaced impacted fracture of the proximal aspect of first metacarpal bone
-Evaluated by orthopedic surgeon and thumb spica splint placed. This to be maintained for 4 to 6 weeks with patient follow-up in office in 3 weeks.
3. Left-sided facial droop/dysarthria
-Patient had episode of facial droop/dysarthria and aphasia
-Neurology involving care and patient underwent CTA head and neck/MRI brain and ruled out any stroke
-Patient to be continue to monitor at this point for any new neurological deficits
4. Tremors - presumed essential
-starting on propranolol 10mg TID
-patient questioning Parkinson's disease, not sure
5. Hypokalemia
Hypomagnesemia
-Replace potassium/magnesium as needed
-Check phos level for tomorrow.
6. Right upper extremity edema
-Venous ultrasound was negative for DVT in right upper extremity
7. Leukocytosis -reactive
-resolved at this point.
DVT prophylaxis: Lovenox
Patient will need SNF rehab placement.
More than 30 minutes spent in discharge including
Final examination of the patient
Summarizing hospital stay
Instructions for continuing care to all relevant caregivers
Preparation of discharge records, prescriptions, and referral forms
Total time spent (in minutes): 38 mins
Anticipated Discharge: Today
Subjective/Interval History
-
Date of Service: November 28, 2023
having tremors but not feeling anxious
some reported sleep disturbance
Objective Data
-
Labs:
Laboratory Results
11/28/23
07:42
WBC 11.1 H
Hgb 11.3 L
Hct 33.1 L
Plt Count 613 H D
Sodium Pending
Potassium Pending
Chloride Pending
Carbon Dioxide Pending
BUN Pending
Creatinine Pending
Glucose Pending
Calcium Pending
Vital Signs:
Vital Signs
Temp Pulse Resp BP Pulse Ox
98.1 F 75 16 130/87 100
11/28/23 07:00 11/28/23 07:00 11/28/23 07:00 11/28/23 07:00 11/28/23 07:00
I&O
11/27/23 11/28/23 11/29/23
06:59 06:59 06:59
Intake Total 1380 / 1380 800 / 800
Output Total 325 / 325 725 / 725
Balance 1055 / 1055 75 / 75
Review of Systems
-
Respiratory: Reports No Symptoms
Cardiac: Reports No Symptoms
Abdomen/GI: Reports No Symptoms
Physical Exam
-
General: Well Developed, Well Nourished and Conversant
Respiratory: Clear to Auscultation
Cardiac: Regular Rhythm and S1/S2
GI: Soft, Nontender, Nondistended and Normal Bowel Sounds
Neuro: Awake, Alert, Oriented and Tremors; Negative Slurred Speech
[2023-11-28 09:04] LABS: Blood Urea Nitrogen 7 mg/dl (9-20); Calcium 9.7 mg/dl (8.4-10.2); Carbon Dioxide 22 mmol/L (22-30); Chloride 102 mmol/L (98-107); Estimated Creatinine Clearance 106 ml/min; Glucose 90 mg/dl (70-99); Potassium 4.5 mmol/L (3.5-5.1); Sodium 139 mmol/L (135-145); eGFR > 60.00
--- NOTE | 2023-11-28 09:24 | CM ---
Addendum entered by aLkeshia Otto 11/28/23 14:47:
Notified Katiana at [facility] of transport time 1829.
Notified Mike of transport time 1829.
Addendum entered by Lakeshia Otto 11/28/23 14:46:
Transportation via ambulance scheduled for 1829 today.
Addendum entered by Lakeshiagisel Otto 11/28/23 14:20:
Transport held to later due to ordered xray of L hip.
Transport time TBD
Addendum entered by Lakeshiagisel Otto 11/28/23 10:30:
Transport set for 1:30pm via ambulance.
Notified Mike (keviner) & Katiana at [facility].
Original Note:
Patient discharge today. IMM explained & signed by patient. Placed in chart
Called brother Mike & notified him of patient discharge today to SNF
Called Katiana scientific director at [facility].
Sebastián from [facility] to follow patient during SNF stay, in hopes patient will follow through with ETOH rehab.
PLAN: Discharge to [facility]
Transportation via ambulance. Time TBD
[facility]
Report #: [phone]- ASK FOR DELMY AT THE NURSES STATION
Fax #: [phone]
[2023-11-28] MEDS: INDERAL 10 MG PO ×2 (09:36→17:00)
[2023-11-28 11:25] VITALS: BP 126/83
[2023-11-28] MEDS: NORCO 5/325 1 TABLET PO (11:25)
[2023-11-28] MEDS: TORADOL 15 MG IV (11:26)
--- NOTE | 2023-11-28 14:15 | W.PN.HOSP.TC ---
Today's Communication/Plan
-
Discharge patient to SNF for physical rehab
Assessment / Plan
Assessment / Plan
Impression/plan
63 yo M, Mr. Michael Evans, with [facility] alcohol use disorder and anxiety who presented for alcohol use disorder, admitted and managed for alcohol withdrawal symptoms.
#Alcohol withdrawal
Alcohol use disorder
Minor transaminitis suspected from alcohol use related liver injury
Withdrawal has subsided
-Patient has a history of significant alcohol use and related issues. Has a history of alcohol withdrawal.
-Patient was initially started on as needed Ativan and MSAS protocol
-Phenobarbital protocol added as well and patient was being tapered off although started having rebound withdrawal symptoms. Patient reinitiated on phenobarb protocol. Phenobarbital protocol has been discontinued
-Maintain on IV thiamine/folate
-Patient off of restraints.
-Patient currently unsure if he wants alcohol rehab. Patient will require physical rehab at least as he is deconditioned, PT will continue working with him
-Case management currently needs PT OT assessment to place in SNF, PT OT consult placed
# Left hand first metacarpal fracture
-Patient had a fall in hospital while trying to walk to the bathroom
-Wrist x-ray showing mildly displaced impacted fracture of the proximal aspect of first metacarpal bone
-Evaluated by orthopedic surgeon and thumb spica splint placed. This to be maintained for 4 to 6 weeks with patient follow-up in office in 3 weeks.
-Good distal capillary refill.
#Nightmares
Patient endorses nightmares that are waking up from sleep, the some going on for the past couple nights
Overnight patient had a nightmare/hallucination that he was late for work and per his own words he got up and ran down the halls
Upon asking nursing they reported that he did wake up and did have a nightmare however he did not get up out of bed and run through the halls
Psychiatry was consulted regarding these nightmares and potential treatment
Psychiatry recommended not giving the patient any benzodiazepines
# Left-sided facial droop/dysarthria
-Patient had episode of facial droop/dysarthria and aphasia
-Neurology involving care and patient underwent CTA head and neck/MRI brain and ruled out any stroke
-Continue to monitor for any new focal neurological deficits
# Hypokalemia/ Hypomagnesemia/hypophosphatemia
-Hypokalemia has resolved, 4.5 this morning
-Last recheck magnesium was normal, 1.6
-Last recheck phosphorus was 4.7, high
-Replace potassium/magnesium as needed
#Right upper extremity edema
-Venous ultrasound was negative for DVT in right upper extremity
#Leukocytosis -reactive
-resolved at this point.
-Patient had a COVID exposure 11/21/2023, since then he has been asymptomatic
-COVID test ordered for tomorrow, what would be day 7 postexposure
#Musculoskeletal/sciatic pain
Patient reports neck pain, middle to lower back pain and pain radiating down the posterior left leg
Patient is a past medical history of sciatica
Patient will be prescribed oxycodone to take after discharge, as well as on NSAID for a few days on top of oxycodone
Disposition: Needs rehab placement
Diet: Regular
DVT proph: Lovenox
Anticipated Discharge: Today
Subjective/Interval History
-
Date of Service: November 28, 2023
Patient reports new onset left hip pain, patient reports pain originates from lower lumbar spine radiates down the back of his leg.
Patient has a past medical history of sciatica per brother
Patient very nervous about attending rehab today
Objective Data
-
Labs:
Laboratory Results
11/28/23
07:42
WBC 11.1 H
Hgb 11.3 L
Hct 33.1 L
Plt Count 613 H D
Sodium 139
Potassium 4.5
Chloride 102
Carbon Dioxide 22
BUN 7 L
Creatinine 0.7
Glucose 90
Calcium 9.7
Vital Signs:
Vital Signs
Temp Pulse Resp BP Pulse Ox
97.3 F 69 16 126/83 99
11/28/23 11:25 11/28/23 11:25 11/28/23 11:25 11/28/23 11:25 11/28/23 11:25
I&O
11/27/23 11/28/23 11/29/23
06:59 06:59 06:59
Intake Total 1380 / 1380 800 / 800
Output Total 325 / 325 725 / 725
Balance 1055 / 1055 75 / 75
Review of Systems
-
History Source: Patient
Constitutional: Reports No Symptoms
Respiratory: Reports No Symptoms
Cardiac: Reports No Symptoms
Musculoskeletal: Reports Muscle Pain (Patient reports back and leg pain, reports pain as burning and shooting down his leg)
Physical Exam
-
General: Well Developed and Conversant
Respiratory: Clear to Auscultation
Cardiac: Regular Rhythm and S1/S2
GI: Soft, Nontender, Nondistended and Normal Bowel Sounds
Skin: Warm and Dry
Neuro: Awake, Alert, Oriented and AO x 3
Psych: Calm and Intact Judgement/Insight
Data Reviewed
-
Labs: Labs Reviewed by me and Discussed with Physician
[2023-11-28 15:00] VITALS: BP 132/85
--- NOTE | 2023-11-28 15:57 | W.DCSUMMARY ---
Discharge Summary
Discharge Data
Date of Admission: 11/14/23
Date of Discharge: 11/28/23
-
Pending Results: No
Hospital Course
Discharging Physician : Monty Garner
Disposition : alf facility for physical rehab
Primary care physician : Dr. Hernandez
Principal Discharge diagnosis : Alcohol withdrawal
Chronic Discharge diagnosis : Sciatica,, alcohol abuse, chronic diarrhea, anxiety/depression
Hospital Course : 63-year-old female with history of alcohol use disorder presented to the ED for alcohol withdrawal symptoms. Patient admitted to drinking 6-8 beers daily as well as moonshine for the past 2 to 3 years. Patient reports frequent
withdrawal symptoms starting at 3 AM and at the time he admitted to hearing tinnitus and 'songs in his head '. Patient had never been to alcohol rehab previously and denies prior attempts to quit. Patient was admitted to ICU for high risk
phenobarbital taper with Precedex and alcohol withdrawal management. Patient was started on MSAS protocol with as needed Ativan. Eventually during his stay patient began to have severe withdrawal symptoms, he was hallucinating and
restless/aggressive overnight. Eventually patient was required to be placed in restraints. Patient's alcohol withdrawal symptoms waxed and waned, he was placed off restraints at some point and then placed back on later after his
aggressive/hallucinations got worse. Eventually patient was able to be taken off restraints at night, 1 night during his stay patient fell and broke his wrist, right first metacarpal base fracture while trying to use the bathroom. Orthopedics
evaluated the patient and placed the patient in a splint. Patient will follow with orthopedics in 2 to 3 weeks as an outpatient after physical rehab. 1 morning patient awoke with new onset facial droop and slurred speech. Stroke workup was
initiated and it was found that the patient had no acute abnormalities on head CT or brain MRI. Head and neck CTA was also clear. Patient symptoms then resolved spontaneously over the next few days. Psychiatry was consulted to evaluate the
patient and speak to him regarding rehab. Patient's opinion on rehab went back and forth, at the time of discharge patient is '90% sure he will go to alcohol rehab' after he finishes physical rehab. Patient had multiple episodes at night of
hallucinations and/or nightmares, he often required restraints to stay calm through the night. Die Reamer were consulted for additional management/recommendations as his alcohol withdrawal was so severe. Patient was eventually discontinued from
high risk phenobarbital taper however later during his stay his withdrawal symptoms worsened and he was required to be restarted on high risk phenobarbital taper. Eventually patient withdrawal symptoms had subsided and he was able to be taken off
restraints. Patient's withdrawal symptoms stopped for the remainder of his stay. Patient does not have a primary care provider, he was provided with a referral to one of the residents at the [facility]. Patient will follow-up with resident
within 1 week of discharge from his physical rehab facility. On day of discharge patient been done complaining of sciatica-like symptoms as well as left hip pain. Left hip x-ray was ordered to evaluate for hip pain as he had fallen on that side
previously. Hip x-ray was read as no acute osseous abnormality identified. Patient was discharged to assisted facility for physical rehab. Per patient he will attempt alcohol rehab on his own after he is finished with physical rehab.
Patient will follow-up with his new primary care physician as an outpatient. Patient will follow-up with orthopedics as an outpatient.
Important imaging findings :
11/14/[address], impressions:
No evidence of acute intracranial abnormality.
11/16/2023 chest x-ray, impressions:
No acute disease of the chest.
11/16/[address], impressions:
No acute intracranial abnormality noted.
11/17/2023 brain MRI, impressions:
No evidence of acute intracranial abnormality.
Motion artifact is present, greatest on T2 gradient echo sequence, and T2 gradient echo sequence is nondiagnostic.
Moderate cerebral and cerebellar atrophy, mild periventricular leukomalacia.
11/17/2023 head and neck CTA, impressions:
No acute intracranial pathology on unenhanced brain CT
No acute pathology on angiogram identified. No M1 or M2 occlusion. No focal stenosis
Nonspecific mild bilateral submental and cervical lymphadenopathy probably reactive
Mild nonacute sinusitis
Possible 2.6 cm incompletely imaged cavitary lesion in the right lower lobe. Nonurgent dedicated chest CT examination recommended
Mild multilevel degenerative disc disease.
11/18/2023 peripheral vascular ultrasound, impressions:
No evidence of DVT of the right upper extremity.
11/20/2023 wrist x-ray impressions:
There is a mildly displaced mildly impacted fracture of the proximal aspect of the first metacarpal
There are degenerative changes involving the first carpometacarpal joint likely osteoarthritis
11/28/2023 hip x-ray, impressions:
No acute osseous abnormality identified.
Procedure findings :
No procedures
Discharge Plan
-
Patient Disposition: [facility]/SNF
Discharge Diagnosis/Procedures: Alcohol use disorder and withdrawal, left hand first metacarpal fracture, Tremor
Condition: Fair
Diet: Regular
Activity: As tolerated
Driving Restrictions: No driving
Bathing Restrictions: OK to Shower
Referrals:
Usama Rizzo MD [Active] - (Abnormal CT. Lung nodule)
NONE,* [Family Provider] -
Mireya Hernandez MD, Resident [Family Practice Resident Year1] - in less than 1 week
Prescriptions:
New
propranolol 10 mg Tablet
10 mg PO TID Qty: 30 0RF
Rx Instructions:
HOLD DOSE IF SBP < 100 or HR < 55
loperamide [Imodium A-D] 2 mg capsule
2 mg PO Q6H PRN (Reason: Diarrhea) Qty: 30 0RF
oxycodone 5 mg tablet
5 mg PO Q8H PRN (Reason: Mod sev pain) Qty: 14 0RF
ibuprofen 600 mg tablet
600 mg PO TID PRN (Reason: Back pain) Qty: 30 0RF
Rx Instructions:
DO NOT USE MORE THAN 5 DAYS
Discharge Orders:
Discharge Patient (As Directed); Ordered 11/27/23
Ordered By: Esequiel Millan
Discharge Date and Time
Print Language: P[place] ISLANDER
--- NOTE | 2023-11-28 16:13 | W.PN.UPDATE ---
Update Note
Progress Note Update
patient seen chart reviewed. spoke with nursing and with dr puga. the patient told me 'i missed the bus' and was very apologetic. he had had leg and thigh pain and the transport to snf was postponed to this evening in order for him to have an xray.
he felt guilty that he was still here and taking up a bed that someone else might need. reassured him that no one was blaming him and he would go this evening at 630pm i did speak w [facility] today. they have him on their radar to arrange rehab for
etoh use when he completes snf. i continue to encourage him NOT to go back on his resolve to do in pt rehab. he said 'you don't trust me not to drink'. i replied that it is not a matter of not trusting him or trusting him. the reality is that his
addiction is powerful and he will need a lot of help to maintain sobriety equipment [employer]. he said he would indeed go to rehab.
[2023-11-28] MEDS: LOVENOX SC (18:28)
== END 2023-11-28 19:20 | DRG 897 ==
LOC: 2 NORTH 22:56
PROVIDERS: Emergency Medicine; Hospitalist; Internal Medicine; Internal Medicine Critical Care Medicine; Nurse Practitioner Family; Physician Assistant Medical; Psychiatry & Neurology Psychiatry; Student in an Organized Health Care Education/Training Program; ADMITTING PHYSICIAN Hospitalist; ATTENDING PHYSICIAN Hospitalist; CONSULT PHYSICIAN Orthopaedic Surgery; CONSULT PHYSICIAN Podiatrist Foot & Ankle Surgery; CONSULT PHYSICIAN Psychiatry & Neurology Neurology; EMERGENCY PHYSICIAN Emergency Medicine; OTHER PHYSICIAN Internal Medicine Critical Care Medicine
DX: F10.231 Alcohol dependence with withdrawal delirium (principal); E87.20 Acidosis, unspecified; R45.851 Suicidal ideations; F10.229 Alcohol dependence with intoxication, unspecified; Y90.8 Blood alcohol level of 240 mg/100 ml or more; G89.29 Other chronic pain; M54.9 Dorsalgia, unspecified; F17.290 Nicotine dependence, other tobacco product, uncomplicated; F12.90 Cannabis use, unspecified, uncomplicated; E83.42 Hypomagnesemia; I10 Essential (primary) hypertension; R44.1 Visual hallucinations; S62.231A Other displaced fracture of base of first metacarpal bone, right hand, initial encounter for closed fracture; W19.XXXA Unspecified fall, initial encounter; Y92.231 Patient bathroom in hospital as the place of occurrence of the external cause; R29.810 Facial weakness; R47.1 Dysarthria and anarthria
CPT/HCPCS: 70450; 70496; 70498; 70551; 71045; 73110; 73502; 80048; 80053; 80061; 80184; 82077; 82140; 82306; 82607; 82728; 82746; 82962; 82977; 83036; 83735; 84100; 84443; 85025; 85027; 85610; 85730; 87324; 87449; 87811; 92526; 92610; 93005; 93306; 93971; 96361; 96374; 96375; 97116; 97163; 97164; 97167; 97530; 97535; 99284; Q9967

== ENCOUNTER 2024-01-30 13:50 | Emergency (ER) | payer OTHER, SELFPAY ==
[2024-01-30 13:58] VITALS: BP 126/97
[2024-01-30 14:00] VITALS: BP 129/85
[2024-01-30 14:03] LABS: Glucose - Point of Care 118 mg/dl (70-99)
[2024-01-30 14:04] VITALS: BP 129/85
--- NOTE | 2024-01-30 14:23 | ED.GENMED ---
History of Present Illness
General
Chief Complaint: Alcohol Problem
Time Seen by Provider: 01/30/24 13:57
History of Present Illness
History of Present Illness:
63-year-old male with history of alcohol abuse presenting to the emergency department seeking rehab. Patient reports last drink was about 6 hours ago. He notes that he drinks about 10 drinks per day. Patient was at a hotel prior to arrival,
called medics. Does report some shakiness. Denies chest pain or difficulty breathing. Denies abdominal pain. Notes some left wrist pain from a fall 2 months ago. Reports that he had previously been 2 months sober. Denies fever or systemic
symptoms. Per medics, blood sugar was 57. Patient notes that he has not been eating or drinking for the past several days. Oral glucose administered.
Past History
Past History
ED Past Medical History: Psychiatric (anxiety)
ED Past Surgical History: None
Social History
Tobacco: Smoker (cigars)
Alcohol: Occasional
Drug: Marijuana
Living: with family
Phy Exam
Physical Exam
Physical Exam:
General: Well-appearing, no clinical signs of dehydration, nontoxic and in no acute distress
HEENT: protecting airway
Neck: appears supple
CV: Normal heart rate, regular rhythm
Resp: No accessory muscle use, no increased work of breathing, lungs clear to auscultation bilaterally
Abd: No distention
Extremities: No deformities, no swelling, no erythema
Neuro: alert, no focal neurologic deficit
: deferred
Rectal: deferred
Psych: Anxious
Skin: Intact
Course
Orders/Labs/Results
Orders:
Orders
01/30/24 14:14
Lorazepam [Ativan] 1 mg PO NOW STA
01/30/24 14:18
Urinalysis Reflex To Culture Urgent
Date Specimen was Collected: 01/30/24
Time Specimen was Collected: 14:21
Urine Drug Abuse Screen Urgent
Date Specimen was Collected: 01/30/24
Time Specimen was Collected: 14:21
01/30/24 14:44
Alcohol Urgent
Complete Blood Count/With Diff Urgent
Comprehensive Metabolic Panel Urgent
01/30/24 15:35
NSS 1000mL Bolus WIDE OPEN 0.9% Sodium Chloride 1000 ml [Nss] 1,000 ml IV BOLUS
Ondansetron Injectable [Zofran] 4 mg IV NOW STA
Abnormal Lab Results
01/30/24 01/30/24
14:02 14:44
RBC 4.24 L 10^6/uL
(4.70-6.10)
MCV 94.3 H fL
(80.0-94.0)
MCH 31.8 H pg
(27.0-31.0)
RDW 14.9 H %
(11.5-14.5)
Absolute Monos (auto) 0.9 H 10^3/uL
(0.1-0.6)
Monocytes % 11.4 H %
(1.7-9.3)
Carbon Dioxide 21 L mmol/L
(22-30)
Creatinine 0.6 L mg/dL
(0.7-1.3)
Glucose 125 H mg/dl
(70-99)
POC Glucose 118 H mg/dl
(70-99)
01/30/24 14:44
01/30/24 14:44
Vital Signs
Initial and Last Documented VS:
Initial Vital Signs
Pulse Resp BP Pulse Ox
74 12 126/97 100
01/30/24 13:58 01/30/24 13:58 01/30/24 13:58 01/30/24 13:58
Last Documented Vital Signs
Temp Pulse Resp BP Pulse Ox
97.6 F 73 32 129/85 100
01/30/24 14:04 01/30/24 14:45 01/30/24 14:45 01/30/24 14:04 01/30/24 14:45
MDM/Problems Addressed
MDM/Problems Addressed:
63-year-old male with history of alcohol abuse presenting for alcohol rehab. Vital signs on arrival are normal.
On exam patient is in no acute distress, very anxious. Unremarkable exam, no significant signs of severe withdrawal. No significant signs of acute trauma, left wrist brace in place from prior fall 2 months ago. No significant deformity. No
neurovascular compromise. Patient noted to be hypoglycemic prior to arrival. Glucose repeated, within normal limits. Suspected hypoglycemia from malnutrition, patient notes he has been eating or drinking for the past several days. Will continue
to monitor. Will discuss with [facility] for rehab services. Ativan administered for anxiety
15:40 -labs unremarkable. Patient did have an episode of vomiting. Suspect that patient is going into mild withdrawal. Will administer IV fluids and Zofran. Otherwise feel medically clear for rehabilitation services. Patient will be discharged
to [facility].
*Critical Care Note
Total Time (30-74mins, 75-104mins- exclusive of procedures): Not Applicable
ED Attending Note
-
Portions of this chart may have been created with voice recognition software.� Occasional wrong word or��sound alike� substitutions may have occurred due to the inherent limitations of voice recognition software.
Discharge Plan
Departure
Prescriptions:
No Action
propranolol 10 mg Tablet
10 mg PO TID Qty: 30 0RF
Rx Instructions:
HOLD DOSE IF SBP < 100 or HR < 55
loperamide [Imodium A-D] 2 mg capsule
2 mg PO Q6H PRN (Reason: Diarrhea) Qty: 30 0RF
oxycodone 5 mg tablet
5 mg PO Q8H PRN (Reason: Mod sev pain) Qty: 14 0RF
ibuprofen 600 mg tablet
600 mg PO TID PRN (Reason: Back pain) Qty: 30 0RF
Rx Instructions:
DO NOT USE MORE THAN 5 DAYS
Referrals:
UNKNOWN - PT DOES,NOT KNOW [Family Provider] -
Interventions
Interventions:
*Risk Screen - Suicide Last Done: 01/30/24 14:04
*General Assessment Last Done: 01/30/24 14:04
*Neglect/Abuse Screening Last Done: 01/30/24 14:04
ED- Neurological Assessment Last Done: 01/30/24 14:25
ED-Psychological Assessment Last Done: 01/30/24 14:25
Discharge Date and Time
Print Language: FRENCH
[2024-01-30] MEDS: ATIVAN 1 MG PO ×2 (14:45→20:27)
[2024-01-30 14:53] LABS: % Basophils 1.1 % (0-2); % Eosinophils 0.8 % (0-6); % Immature Granulocytes 0.4 % (0-0.5); % Lymphocytes 25.5 % (20.5-51.1); % Monocytes 11.4 % (1.7-9.3); % Neutrophils 60.8 % (42.2-75.2); Absolute Basophils 0.1 10^3/uL (0-0.2); Absolute Eosinophils 0.1 10^3/uL (0-0.7); Absolute Lymphocytes 1.9 10^3/uL (1.2-3.4); Absolute Monocytes 0.9 10^3/uL (0.1-0.6); Absolute Neutrophils 4.6 10^3/uL (1.4-6.5); Hemoglobin 13.5 g/dL (13.0-18.0); Mean Corp Hgb Conc. 33.8 g/dL (33.0-37.0); Mean Corpuscular Hgb 31.8 pg (27.0-31.0); Mean Corpuscular Volume 94.3 fL (80.0-94.0); Mean Platelet Volume 8.8 fL (7.4-10.4); Nucleated Red Blood Cells % 0 % (-); Platelet Count 256 10^3/uL (130-400); Red Blood Cell Count 4.24 10^6/uL (4.70-6.10); Red Cell Dist. Width 14.9 % (11.5-14.5); White Blood Cell Count 7.6 10^3/uL (4.8-10.8)
[2024-01-30 15:00] VITALS: BP 119/82
[2024-01-30 15:30] LABS: ALT (SGPT) 16 U/L (0-50); AST (SGOT) 29 U/L (17-59); Albumin 4.2 g/dl (3.5-5.0); Alcohol 65 mg/dl; Alkaline Phosphatase 54 U/L (38-126); Blood Urea Nitrogen 10 mg/dl (9-20); Calcium 9.3 mg/dl (8.4-10.2); Carbon Dioxide 21 mmol/L (22-30); Chloride 105 mmol/L (98-107); Glucose 125 mg/dl (70-99); Potassium 4.2 mmol/L (3.5-5.1); Sodium 140 mmol/L (135-145); Total Bilirubin 0.7 mg/dl (0.2-1.3); Total Protein 7.9 g/dl (6.3-8.2); eGFR > 60.00
[2024-01-30] MEDS: NSS 1000 IV (15:46)
[2024-01-30] MEDS: ZOFRAN 4 MG IV (15:46)
[2024-01-30 16:00] LABS: Urine Albumin Negative (Neg - Trace); Urine Bilirubin Negative (Negative); Urine Character Clear (Clear); Urine Color Yellow; Urine Glucose Negative (Negative); Urine Ketone Trace (Negative); Urine Leukocyte Negative (Negative); Urine Nitrite Negative (Negative); Urine Occult Blood Negative (Negative); Urine Urobilinogen 1+ (Neg - 1+); Urine pH 6.5 (5.0-9.0)
[2024-01-30 16:28] LABS: Amphetamines Negative (Negative); Barbiturates Negative (Negative); Benzodiazepines Negative (Negative); Buprenorphine Negative (Negative); Cocaine Negative (Negative); Marijuana Positive (Negative); Methadone Negative (Negative); Methamphetamines Negative (Negative); Opiates Negative (Negative); Phencyclidine Negative (Negative); Tricyclic Antidepressants Negative (Negative)
[2024-01-30 18:41] LABS: Glucose - Point of Care 95 mg/dl (70-99)
[2024-01-30 18:55] VITALS: BP 134/84
[2024-01-30 20:00] VITALS: BP 132/90
[2024-01-31 01:23] VITALS: BP 141/67
== END 2024-01-31 01:24 ==
LOC: EMR 13:50
PROVIDERS: EMERGENCY PHYSICIAN Student in an Organized Health Care Education/Training Program
DX: F10.10 Alcohol abuse, uncomplicated (principal); F41.9 Anxiety disorder, unspecified; F17.290 Nicotine dependence, other tobacco product, uncomplicated
CPT/HCPCS: 99284; 96374; 96375; 96361; 80053; 80306; 81003; 82077; 82962; 85025

== ENCOUNTER 2024-04-04 16:19 | Inpatient (IN) | payer OTHER, SELFPAY ==
[2024-04-04] VITALS (8 sets, daily range): BP systolic 112–131; BP diastolic 64–83; BMI 22.4; BMI 21.9
[2024-04-04 11:42] LABS: % Basophils 0.5 % (0-2); % Eosinophils 0.6 % (0-6); % Immature Granulocytes 0.3 % (0-0.5); % Lymphocytes 18.1 % (20.5-51.1); % Monocytes 8.1 % (1.7-9.3); % Neutrophils 72.4 % (42.2-75.2); Absolute Basophils 0.1 10^3/uL (0-0.2); Absolute Eosinophils 0.1 10^3/uL (0-0.7); Absolute Lymphocytes 2.3 10^3/uL (1.2-3.4); Absolute Neutrophils 9.1 10^3/uL (1.4-6.5); Hematocrit 42.7 % (39.0-52.0); Hemoglobin 14.3 g/dL (13.0-18.0); Mean Corp Hgb Conc. 33.5 g/dL (33.0-37.0); Mean Corpuscular Volume 92.4 fL (80.0-94.0); Mean Platelet Volume 8.8 fL (7.4-10.4); Nucleated Red Blood Cells % 0 % (-); Platelet Count 370 10^3/uL (130-400); Red Blood Cell Count 4.62 10^6/uL (4.70-6.10); Red Cell Dist. Width 14.6 % (11.5-14.5); White Blood Cell Count 12.5 10^3/uL (4.8-10.8)
--- NOTE | 2024-04-04 11:59 | ED.GENMED ---
History of Present Illness
General
Chief Complaint: Fall
Source: patient
Time Seen by Provider: 04/04/24 11:44
History of Present Illness
History of Present Illness:
63-year-old male presents emergency ferment due to a fall, and possible seizure. He was at [place] in, and fell. He is having difficulty walking. He notes he was recently at rehab, and started drinking again. Last drink was last night.
Past History
Past History
ED Past Medical History: Psychiatric (anxiety)
ED Past Surgical History: None
Social History
Tobacco: Smoker (cigars)
Alcohol: Occasional
Drug: Marijuana
Living: with family
Phy Exam
Physical Exam
Physical Exam:
Physical Exam
General: no apparent distress, not acutely ill
Neck: supple. no meningeal signs. normal posterior pharynx
Heart: s1/s2 regular rate and rhythm, no murmur. equal radial
pulses.
HEENT: Pupils equal round reactive to light, EOMI
Lungs: no acute respiratory distress. clear bilaterally
Abdomen: normal bowel sounds. not tender. no CVAT
Neuro: alert and oriented. no focal neurological deficits cranial nerves II through XII intact
Skin: no rash
Psychiatric: well kept. interactive and cooperative
Extremities: no edema. no calf tenderness. negative homans. good distal pulses
Course
Orders/Labs/Results
Orders:
Orders
04/04/24
Electrocardiogram (*1) Stat
Reason for Study: Chest Pain
Comment: DONE
04/04/24 11:07
Electrocardiogram (*1) Urgent
Reason for Study: Other
Other Reason for Exam: bigeminy
04/04/24 11:08
EKG- Treatment ONCE
04/04/24 11:31
Complete Blood Count/With Diff Urgent
Troponin I Urgent
04/04/24 11:57
Hip, Left 2-3 Views [CR Hip - LT w/wo Pel 2-3 Vw*] Urgent
Comment:
Reason For Exam: Fall, left hip pain
Include a pelvis x-ray?: Yes
04/04/24 11:58
Add On- LAB Urgent
Tests Added?: alcohol
04/04/24 12:25
Alcohol Urgent
04/04/24 13:19
Comprehensive Metabolic Panel Urgent
Lipase Urgent
04/04/24 14:05
CT Head W/o Iv Contrast Urgent
Comment:
Reason For Exam: fall, focal seizure
04/04/24 15:24
Lorazepam [Ativan] 1 mg IV NOW STA
Abnormal Lab Results
04/04/24 04/04/24
11:31 13:19
WBC 12.5 H 10^3/uL
(4.8-10.8)
RBC 4.62 L 10^6/uL
(4.70-6.10)
RDW 14.6 H %
(11.5-14.5)
Absolute Neuts (auto) 9.1 H 10^3/uL
(1.4-6.5)
Absolute Monos (auto) 1.0 H 10^3/uL
(0.1-0.6)
Lymphocytes % 18.1 L %
(20.5-51.1)
Creatinine 0.6 L mg/dL
(0.7-1.3)
04/04/24 11:31
04/04/24 13:19
Vital Signs
Initial and Last Documented VS:
Initial Vital Signs
Temp Pulse Resp Pulse Ox
98 F 50 20 96
04/04/24 11:09 04/04/24 11:09 04/04/24 11:09 04/04/24 11:09
Last Documented Vital Signs
Temp Pulse Resp BP Pulse Ox
98 F 79 21 123/77 98
04/04/24 11:09 04/04/24 15:15 04/04/24 15:15 04/04/24 14:00 04/04/24 14:23
MDM/Problems Addressed
Differential Diagnosis Includes:
Alcohol withdraw, seizure, intracranial hemorrhage
MDM/Problems Addressed:
63-year-old male with alcohol withdrawal, seizure, fall. Admit to hospitalist.
Chronic conditions affecting care: Arrhythmia
*Radiology
Radiology exam reviewed: preliminary read by ED provider (CT head no acute findings, left hip x-ray no acute findings)
*Pulse Oximetry
Patient hypoxic: no
*EKG
Interpreted by ED Provider?: Yes
EKG Intrepretation Date: 04/04/24
EKG Intrepretation Time: 11:13
Interpretation: abnormal
Comparison EKG: no changes
Heart Rate: 102
Rate: tachycardiac
Rhythm: PVC's and sinus tachycardia
[place]: normal axis
Interval: normal interval
QRS Pattern: normal QRS
Ischemia: non-specific ST changes
*Chemistry Technical Officer Interpretation
Rate: normal
Interpretation: abnormal
Heart Rate: 95
Rhythm: sinus and PVC's
*Critical Care Note
Total Time (30-74mins, 75-104mins- exclusive of procedures): Not Applicable
Patient Management
Social determinants of health affecting care: Living situation and Substance abuse (etoh)
Discussion with other providers: Hospitalist
Escalation/DeEscalation of care consider admission/obs:
admit indicated
ED Attending Note
-
Portions of this chart may have been created with voice recognition software.� Occasional wrong word or��sound alike� substitutions may have occurred due to the inherent limitations of voice recognition software.
Discharge Plan
Departure
Patient Disposition: Admit
Date of Disposition: 04/04/24
Time of Disposition: 15:23
Admit to: IMU
Presentation/result/management discussed w/ accepting MD/DO: Hospitalist
Patient with high blood pressure during this ER visit?: Yes
Condition: Fair
Discharge Problem:
Alcohol withdrawal, Seizure, Fall, Ventricular bigeminy
Prescriptions:
No Action
propranolol 10 mg Tablet
10 mg PO TID Qty: 30 0RF
Rx Instructions:
HOLD DOSE IF SBP < 100 or HR < 55
loperamide [Imodium A-D] 2 mg capsule
2 mg PO Q6H PRN (Reason: Diarrhea) Qty: 30 0RF
oxycodone 5 mg tablet
5 mg PO Q8H PRN (Reason: Mod sev pain) Qty: 14 0RF
ibuprofen 600 mg tablet
600 mg PO TID PRN (Reason: Back pain) Qty: 30 0RF
Rx Instructions:
DO NOT USE MORE THAN 5 DAYS
Referrals:
NONE,* [Family Provider] -
Interventions
Interventions:
*Risk Screen - Suicide Last Done: 04/04/24 11:09
*General Assessment Last Done: 04/04/24 11:09
*Neglect/Abuse Screening Last Done: 04/04/24 11:09
ED- Fall Risk Assessment Last Done: 04/04/24 11:25
*ED COVID-19 Vaccine History Last Done: 04/04/24 11:09
ED-Musculoskeletal Assessment Last Done: 04/04/24 11:25
ED- Neurological Assessment Last Done: 04/04/24 11:25
ED-Skin Assessment Last Done: 04/04/24 11:25
Discharge Date and Time
Print Language: UKRAINIAN
[2024-04-04 12:05] LABS: Troponin I < 0.012 ng/ml
[2024-04-04 13:04] LABS: Alcohol 15 mg/dl
[2024-04-04 13:48] LABS: ALT (SGPT) 18 U/L (0-50); AST (SGOT) 29 U/L (17-59); Albumin 4.3 g/dl (3.5-5.0); Alkaline Phosphatase 79 U/L (38-126); Blood Urea Nitrogen 13 mg/dl (9-20); Calcium 9.1 mg/dl (8.4-10.2); Carbon Dioxide 22 mmol/L (22-30); Chloride 102 mmol/L (98-107); Estimated Creatinine Clearance > 125 ml/min; Glucose 92 mg/dl (70-99); Lipase 67 U/L (23-300); Potassium 4.7 mmol/L (3.5-5.1); Sodium 136 mmol/L (135-145); Total Protein 8.2 g/dl (6.3-8.2); eGFR > 60.00
--- NOTE | 2024-04-04 16:09 | HPS.HSE ---
Family Physician
-
Family Physician: * NONE
Chief Complaint
-
alcohol withdrawal
History of Present Illness
63-year-old male past medical history of alcohol use disorder, anxiety, presenting with fall and possible seizure. He states that he has difficulty walking due to his legs shaking and states that he fell today with pain in his left hip. He denies
blacking out.
He states that he has a mild headache currently. He had blurry vision earlier which is resolved. Denies abdominal pain. He feels mildly nauseous and feels like heart racing with tremors. He normally drinks 8 beers per day which she drank last
drank last night. He only started drinking again a week ago supposedly. He denies marijuana or smoking or any other drugs.
He denies any history of alcohol withdrawal seizures in the past.
He denies any slurred speech, difficulty speaking or swallowing. Denies numbness or tingling or focal weakness.
Patient was admitted in November of this year for severe alcohol withdrawal. At that time he was found to have left facial droop and was evaluated for CVA which was negative.
Medical History
Past Medical History
Past Medical History: Reports Other (alcohol use disorder, anxiety,)
Past Surgical History: Reports None
Social History
Tobacco: Non-smoker
Alcohol: Daily
Drug: None
Family History
Family History: Not pertinent
Allergies / Home Medications
Allergies reflects when Allergies were last updated in [employer].
Home Medications with original date entered in [employer]
Allergy/Medication List:
Allergies
Allergy/AdvReac Type Severity Reaction Status Date / Time
No Known Allergies Allergy Verified 11/14/23 15:10
Home Medications
ibuprofen 600 mg tablet 600 mg PO TID PRN Back pain #30 tabs 11/28/23
loperamide 2 mg capsule (Imodium A-D) 2 mg PO Q6H PRN Diarrhea #30 caps 09/06/24
oxycodone 5 mg tablet 5 mg PO Q8H PRN Mod sev pain #14 tabs 11/28/23
propranolol 10 mg tablet 10 mg PO TID Tremor #30 tabs 11/28/23
Review of Systems
-
History Source: Patient
A 12 point ROS was completed and negative except as noted: Yes
Constitutional: Reports No Symptoms
EENT: Reports No Symptoms
Respiratory: Reports No Symptoms
Cardiac: Reports No Symptoms
Abdomen/GI: Reports See HPI
: Reports No Symptoms
Musculoskeletal: Reports No Symptoms
Skin: Reports No Symptoms
Neurological: Reports See HPI
Endocrine: Reports No Symptoms
Hematologic/Lymphatic: Reports No Symptoms
Psych: Reports No Symptoms
Physical Exam
Vital Signs
Vital Signs
Temp Pulse Resp BP Pulse Ox
98 F 79 21 123/77 98
04/04/24 11:09 04/04/24 15:15 04/04/24 15:15 04/04/24 14:00 04/04/24 14:23
Physical Exam
General: Well Developed, Well Nourished and No Apparent Distress
HEENT: NormoCephalic, Moist mucous membranes and Atraumatic
Respiratory: Clear
Cardiac: S1/S2 and Regular Rhythm; No Murmur or Rub
GI: Soft, Non Tender, Non Distended and Normal Bowel Sounds; No Organomegaly
Rectal: Deferred by Provider
Musculoskeletal: No Clubbing, No Cyanosis and No Edema
Skin: No Rash
Neuro: Nonfocal/grossly intact and Other (left corner facial droop)
Laboratory Results
-
04/04/24 11:31
04/04/24 13:19
Laboratory Results
Total Bilirubin 1.0 mg/dl (0.2-1.3) 04/04/24 13:19
AST 29 U/L (17-59) 04/04/24 13:19
ALT 18 U/L (0-50) 04/04/24 13:19
Alkaline Phosphatase 79 U/L (38-126) 04/04/24 13:19
Troponin I < 0.012 ng/ml 04/04/24 11:31
Lipase 67 U/L (23-300) 04/04/24 13:19
Data Reviewed
-
Lab Data: Labs Reviewed by me
Old Records: Reviewed
Impression/Plan
-
IMPRESSION:
PLAN:
# Alcohol withdrawal
# Possible alcohol withdrawal seizure resulting in fall
# Left facial droop possible CVA
-Patient with subtle left mouth facial droop, no other neurological deficits
-Left hip x-ray negative
-CT head shows no acute abnormality
-Alcohol level 15
-Thiamine and folate
-IV fluids
-Alcohol withdrawal protocol
-Phenobarbital protocol
-Check magnesium level
-Check MRI brain to rule out CVA given left facial droop and concern for potential seizure although no other signs of stroke at this time. Similar symptom to when he was worked up for stroke previously in November
Anxiety
Possible CVA in the past with left-sided facial droop
Full code
DVT prophylaxis�heparin
Regular diet
[2024-04-04] MEDS: ATIVAN 1 MG IV (16:24)
--- NOTE | 2024-04-04 17:47 | PTCARENOTE ---
Received pt via stretcher from the ED. Pt is awake and pleasant at this time. He is oriented x 3 and he states he is 'concerned about his future' he tells me that he is homeless at this time and was recently spent all his social security check on a
hotel for 2 weeks. NSR at 77 with PVCs. BP 117/77. Pt is complaining of left hip and left knee pain which he rates zero at rest but 4/10 with activity. Lungs clear, abdomen soft with active bowel tones. Urinal at bedside. Skin assess completed.
Reviewed Instructions on how to order food, use of call light and TV remote. Explained the MSAS protocol and plan of care with pt who verbalizes understanding.
[2024-04-04] MEDS: NSS 1000 IV (18:20)
[2024-04-04] MEDS: PHENOBARBITAL 104 MG IV (18:20)
--- NOTE | 2024-04-04 18:30 | PTCARENOTE ---
patient with left wrist brace intact and reports that he has a broken wrist. pt reports you can remove to shower.
[2024-04-04 19:39] LABS: Magnesium 1.8 mg/dl (1.6-2.3)
[2024-04-04] MEDS: HEPARIN 5000 UNITS SC (19:55)
[2024-04-04] MEDS: THIAMINE INJECTION 200 MG IV (19:56)
[2024-04-04] MEDS: MOTRIN 400 MG PO (20:18)
--- NOTE | 2024-04-04 21:05 | PTCARENOTE ---
Assumed care of pt this evening from day time nurse. Pt admitted to IMU for alcohol withdraw. MSAS 3 for visible tremor and mild diaphoresis. Pt aaox3. NSR on monitor, hr 72. Pt c/o 2-3/10 pain in his left hip and center upper back. Pt reported that
he fell in the shower this morning prior to admission. Also stated that he has trouble sleeping at night and requested melatonin. Notified GEOVANNY Xiong and received order for PRN Ibuprofen and melatonin (see MAR). Pt resting in bed with call sinha in
reach.
[2024-04-04] MEDS: PHENOBARBITAL 97.5 MG IV (22:04)
[2024-04-04] MEDS: MELATONIN 5 MG PO (22:04)
[2024-04-04] MEDS: PHENOBARBITAL IV (22:05)
[2024-04-05] VITALS (12 sets, daily range): BP systolic 113–140; BP diastolic 60–95; PULSE 68; O2SAT 97; BMI 22.4
[2024-04-05] MEDS: NSS 1000 IV ×2 (04:22→22:32)
[2024-04-05 05:53] LABS: % Basophils 0.5 % (0-2); % Eosinophils 2.6 % (0-6); % Immature Granulocytes 0.3 % (0-0.5); % Lymphocytes 32.9 % (20.5-51.1); % Monocytes 12.1 % (1.7-9.3); % Neutrophils 51.6 % (42.2-75.2); Absolute Basophils 0.1 10^3/uL (0-0.2); Absolute Eosinophils 0.3 10^3/uL (0-0.7); Absolute Lymphocytes 3.5 10^3/uL (1.2-3.4); Absolute Monocytes 1.3 10^3/uL (0.1-0.6); Absolute Neutrophils 5.4 10^3/uL (1.4-6.5); Hematocrit 42.4 % (39.0-52.0); Hemoglobin 13.9 g/dL (13.0-18.0); Mean Corp Hgb Conc. 32.8 g/dL (33.0-37.0); Mean Corpuscular Hgb 30.8 pg (27.0-31.0); Mean Platelet Volume 9.5 fL (7.4-10.4); Nucleated Red Blood Cells % 0 % (-); Platelet Count 327 10^3/uL (130-400); Red Blood Cell Count 4.51 10^6/uL (4.70-6.10); Red Cell Dist. Width 14.1 % (11.5-14.5); White Blood Cell Count 10.5 10^3/uL (4.8-10.8)
[2024-04-05 06:25] LABS: ALT (SGPT) 15 U/L (0-50); AST (SGOT) 26 U/L (17-59); Albumin 3.8 g/dl (3.5-5.0); Alkaline Phosphatase 81 U/L (38-126); Blood Urea Nitrogen 15 mg/dl (9-20); Calcium 8.9 mg/dl (8.4-10.2); Carbon Dioxide 22 mmol/L (22-30); Chloride 106 mmol/L (98-107); Estimated Creatinine Clearance > 125 ml/min; Glucose 89 mg/dl (70-99); Potassium 4.5 mmol/L (3.5-5.1); Sodium 137 mmol/L (135-145); Total Bilirubin 1.7 mg/dl (0.2-1.3); Total Protein 7.6 g/dl (6.3-8.2); eGFR > 60.00
[2024-04-05] MEDS: HEPARIN 5000 UNITS SC ×2 (09:26→19:51)
[2024-04-05] MEDS: THIAMINE INJECTION 200 MG IV ×2 (09:26→19:51)
[2024-04-05] MEDS: PHENOBARBITAL 97.5 MG IV ×3 (09:26→21:28)
[2024-04-05] MEDS: FOLVITE 1 MG PO (09:26)
--- NOTE | 2024-04-05 12:56 | W.PN.HOSP.TC ---
Today's Communication/Plan
-
Monitor vitals
See plan
Continue with phenobarb
Continue to monitor MSAS
PT/OT
Transfer out of IMU
Assessment / Plan
Assessment / Plan
General: Well Developed, Well Nourished and No Apparent Distress
HEENT: NormoCephalic, Moist mucous membranes and Atraumatic
Respiratory: Clear
Cardiac: S1/S2 and Regular Rhythm; No Murmur or Rub
GI: Soft, Non Tender, Non Distended and Normal Bowel Sounds
Musculoskeletal: No Edema
Neuro: Nonfocal/grossly intact
Alcohol withdrawal
# Possible alcohol withdrawal seizure resulting in fall
# Left facial droop which now resolved; no CVA on MRI brain
-Left hip x-ray negative
-CT head shows no acute abnormality
-Alcohol level 15
-Thiamine and folate
-IV fluids
-Alcohol withdrawal protocol
-Phenobarbital protocol
follow MSAS; patient was recently discharged from alcohol rehab and he relapsed.
Anxiety
Possible CVA in the past with left-sided facial droop
Full code
DVT prophylaxis�heparin
Anticipated Discharge: 24 - 48 hours
Subjective/Interval History
-
Date of Service: April 05, 2024
Denies pain
Objective Data
-
Labs:
Laboratory Results
04/05/24
04:44
WBC 10.5
Hgb 13.9
Hct 42.4
Plt Count 327
Sodium 137
Potassium 4.5
Chloride 106
Carbon Dioxide 22
BUN 15
Creatinine 0.6 L
Glucose 89
Calcium 8.9
Total Bilirubin 1.7 H
AST 26
ALT 15
Alkaline Phosphatase 81
Vital Signs:
Vital Signs
Temp Pulse Resp BP Pulse Ox
97.7 F 61 14 124/81 95
04/05/24 07:20 04/05/24 02:00 04/05/24 02:00 04/05/24 02:00 04/05/24 08:00
I&O
04/04/24 04/05/24 04/06/24
06:59 06:59 06:59
Intake Total 104 / 104
Output Total 325 / 325 200 / 200
Balance -221 / -221 -200 / -200
--- NOTE | 2024-04-05 16:56 | CM ---
Addendum entered by Krista Almanza RN 04/05/24 17:13:
Plan follow up after seen by PT/OT.
Plan follow up after seen by NABIL.
Addendum entered by Krista Almanza RN 04/05/24 17:12:
Message to Dr Malloy; question as suicidal ideation coded in chart- per MD: There was no suicidal ideation.
Original Note:
Patient who is homeless with Dx Alcohol withdrawal, Possible alcohol withdrawal seizure resulting in fall. Room air. Receiving IV Phenobarb. PT/OT Evals pending. MSAS per nursing.
Met with patient who confirmed that he is homeless and the [place] address is his brother's house where he gets his mail.
He states he was recently dicharged from [facility] program, and has been staying at the [facility].
The patient was independent in ADLs and ambulation using his SPC.
Patient wearing splint left wrist.
He states he fell in the shower prior to admission.
Patient states he does not have any prior VN.
He has no PCP.
Patient states he is unsure of his pharmacy, possibly [facility] [address], and shares that he did not get his meds filled after his last admission.
Patient has no outpatient Director Systems assisting him with housing.
He was not wanting to take referrals for housing at this time.
Patient began crying saying he spent his money from his SS check on the Hotel, that he was saving for a deposit on an apartment.
Offered NABIL and patient agreed to speak with someone tomorrow.
He is unsure if he wants to do an inpatient program again at [facility], and he mentioned [facility].
Referral to Sebastián FERRER who will see the patient tomorrow.
Message from Dr Malloy; no wt bearing restriction left arm.
Plan follow up after seen by NABIL.
[2024-04-05] MEDS: MELATONIN 5 MG PO (21:28)
[2024-04-05] MEDS: NSS IV (21:31)
--- NOTE | 2024-04-05 22:36 | PTCARENOTE ---
Transferred to 4th floor. Report given. No assessment changes.
--- NOTE | 2024-04-05 23:00 | PTCARENOTE ---
pt transferred from IMU. Pt ambulated into room with assistance. Pt AAOX3, able to make needs known. MSAS protocol maintained. Will continue with current plan.
[2024-04-06] VITALS (7 sets, daily range): BP systolic 113–143; BP diastolic 59–84
[2024-04-06 07:55] LABS: % Basophils 0.6 % (0-2); % Eosinophils 2.2 % (0-6); % Immature Granulocytes 0.4 % (0-0.5); % Lymphocytes 34.3 % (20.5-51.1); % Monocytes 12.5 % (1.7-9.3); Absolute Basophils 0.1 10^3/uL (0-0.2); Absolute Eosinophils 0.2 10^3/uL (0-0.7); Absolute Lymphocytes 3.4 10^3/uL (1.2-3.4); Absolute Monocytes 1.2 10^3/uL (0.1-0.6); Absolute Neutrophils 4.9 10^3/uL (1.4-6.5); Hematocrit 40.9 % (39.0-52.0); Hemoglobin 13.5 g/dL (13.0-18.0); Mean Corpuscular Hgb 30.9 pg (27.0-31.0); Mean Corpuscular Volume 93.6 fL (80.0-94.0); Mean Platelet Volume 9.2 fL (7.4-10.4); Nucleated Red Blood Cells % 0 % (-); Platelet Count 310 10^3/uL (130-400); Red Blood Cell Count 4.37 10^6/uL (4.70-6.10); Red Cell Dist. Width 14.2 % (11.5-14.5); White Blood Cell Count 9.9 10^3/uL (4.8-10.8)
[2024-04-06] MEDS: THIAMINE INJECTION 200 MG IV (07:57)
[2024-04-06] MEDS: PHENOBARBITAL 97.5 MG IV ×2 (07:57→15:14)
[2024-04-06 08:48] LABS: Blood Urea Nitrogen 9 mg/dl (9-20); Calcium 8.9 mg/dl (8.4-10.2); Carbon Dioxide 21 mmol/L (22-30); Chloride 104 mmol/L (98-107); Estimated Creatinine Clearance 118 ml/min; Glucose 95 mg/dl (70-99); Potassium 3.9 mmol/L (3.5-5.1); Sodium 137 mmol/L (135-145); eGFR > 60.00
[2024-04-06] MEDS: FOLVITE 1 MG PO (08:58)
[2024-04-06] MEDS: HEPARIN 5000 UNITS SC ×2 (08:58→20:45)
--- NOTE | 2024-04-06 10:44 | CM ---
CM reviewed chart, patient seen bedside. CM discussed PT recommendations of SNF, patient confirms he has been to [facility] in past, agreeable to referral to facility. Patient agreeable to meet with [facility]. Patient will require
insurance auth once facility found. CM will continue to follow for all discharge planning needs.
Plan; SNF pending acceptance, will require insurance auth, [facility] following.
--- NOTE | 2024-04-06 12:02 | W.PN.HOSP.TC ---
Today's Communication/Plan
-
Monitor vital signs see plan
Continue with phenobarb
Check wrist x-ray
PT/OT
Assessment / Plan
Assessment / Plan
General: Well Developed, Well Nourished and No Apparent Distress
HEENT: NormoCephalic, Moist mucous membranes and Atraumatic
Respiratory: Clear
Cardiac: S1/S2 and Regular Rhythm; No Murmur or Rub
GI: Soft, Non Tender, Non Distended and Normal Bowel Sounds
Musculoskeletal: No Edema
Neuro: Nonfocal/grossly intact
Alcohol withdrawal
# Possible alcohol withdrawal seizure resulting in fall
# Left facial droop which now resolved; no CVA on MRI brain
-Left hip x-ray negative
-CT head shows no acute abnormality
-Alcohol level 15
-Thiamine and folate
-IV fluids
-Alcohol withdrawal protocol
-Phenobarbital protocol
follow MSAS; patient was recently discharged from alcohol rehab and he relapsed.
Left first carpometacarpal fracture
This was diagnosed in 12/15. Patient has not followed up with orthopedics outpatient
Still has a splint
Repeat wrist x-ray
Anxiety
Full code
DVT prophylaxis�heparin
Anticipated Discharge: Within 24 hours
Subjective/Interval History
-
Date of Service: April 06, 2024
Denies nausea
Objective Data
-
Labs:
Laboratory Results
04/06/24
07:25
WBC 9.9
Hgb 13.5
Hct 40.9
Plt Count 310
Sodium 137
Potassium 3.9
Chloride 104
Carbon Dioxide 21 L
BUN 9
Creatinine 0.7
Glucose 95
Calcium 8.9
Vital Signs:
Vital Signs
Temp Pulse Resp BP Pulse Ox
98.2 F 91 19 139/80 96
04/06/24 11:21 04/06/24 11:21 04/06/24 11:21 04/06/24 11:21 04/06/24 11:21
I&O
04/05/24 04/06/24 04/07/24
06:59 06:59 06:59
Intake Total 104 / 104 1120 / 1120
Output Total 325 / 325 1275 / 1275
Balance -221 / -221 -155 / -155
[2024-04-06] MEDS: THIAMINE INJECTION IV (20:45)
[2024-04-06] MEDS: LUMINAL 64.8 MG PO (21:56)
[2024-04-06] MEDS: MELATONIN 5 MG PO (21:56)
[2024-04-06] MEDS: THIAMINE INJECTION 100 MG IV (22:08)
[2024-04-07 03:43] VITALS: BP 121/82
[2024-04-07 06:48] VITALS: BP 136/86
[2024-04-07] MEDS: THIAMINE INJECTION 200 MG IV (08:09)
[2024-04-07] MEDS: HEPARIN 5000 UNITS SC ×2 (08:09→19:52)
[2024-04-07] MEDS: FOLVITE 1 MG PO (08:09)
[2024-04-07] MEDS: LUMINAL 64.8 MG PO ×3 (08:09→21:18)
[2024-04-07 10:03] LABS: % Basophils 0.6 % (0-2); % Eosinophils 2.6 % (0-6); % Immature Granulocytes 0.4 % (0-0.5); % Neutrophils 51.4 % (42.2-75.2); Absolute Basophils 0.1 10^3/uL (0-0.2); Absolute Eosinophils 0.3 10^3/uL (0-0.7); Absolute Lymphocytes 3.3 10^3/uL (1.2-3.4); Absolute Monocytes 1.2 10^3/uL (0.1-0.6); Absolute Neutrophils 5.1 10^3/uL (1.4-6.5); Hematocrit 40.5 % (39.0-52.0); Hemoglobin 13.8 g/dL (13.0-18.0); Mean Corp Hgb Conc. 34.1 g/dL (33.0-37.0); Mean Corpuscular Hgb 31.6 pg (27.0-31.0); Mean Corpuscular Volume 92.7 fL (80.0-94.0); Mean Platelet Volume 9.2 fL (7.4-10.4); Nucleated Red Blood Cells % 0 % (-); Platelet Count 328 10^3/uL (130-400); Red Blood Cell Count 4.37 10^6/uL (4.70-6.10); Red Cell Dist. Width 14.1 % (11.5-14.5); White Blood Cell Count 9.9 10^3/uL (4.8-10.8)
[2024-04-07 10:36] LABS: Blood Urea Nitrogen 11 mg/dl (9-20); Calcium 9.5 mg/dl (8.4-10.2); Carbon Dioxide 25 mmol/L (22-30); Chloride 101 mmol/L (98-107); Estimated Creatinine Clearance 118 ml/min; Glucose 92 mg/dl (70-99); Sodium 136 mmol/L (135-145); eGFR > 60.00
[2024-04-07 12:45] VITALS: BP 97/64
--- NOTE | 2024-04-07 12:55 | W.PN.HOSP.TC ---
Today's Communication/Plan
-
Monitor vital signs
see plan
Continue with phenobarb
PT/OT
dc planning
Assessment / Plan
Assessment / Plan
General: Well Developed, Well Nourished and No Apparent Distress
HEENT: NormoCephalic, Moist mucous membranes and Atraumatic
Respiratory: Clear
Cardiac: S1/S2 and Regular Rhythm; No Murmur or Rub
GI: Soft, Non Tender, Non Distended and Normal Bowel Sounds
Musculoskeletal: No Edema
Neuro: Nonfocal/grossly intact
Alcohol withdrawal
# Possible alcohol withdrawal seizure resulting in fall
# Left facial droop which now resolved; no CVA on MRI brain
-Left hip x-ray negative
-CT head shows no acute abnormality
-Alcohol level 15
-Thiamine and folate
-IV fluids
-Alcohol withdrawal protocol
-Phenobarbital protocol
follow MSAS; patient was recently discharged from alcohol rehab and he relapsed.
Left first carpometacarpal fracture
This was diagnosed in 12/15. Patient has not followed up with orthopedics outpatient
Still has a splint
Repeat wrist x-ray with stable fracture. Discussed with Dr. Lal from orthopedics, brace removed and patient is with brace as tolerated left hand
Anxiety
Full code
DVT prophylaxis�heparin
Anticipated Discharge: Within 24 hours
Subjective/Interval History
-
Date of Service: April 07, 2024
denies nausea
Objective Data
-
Labs:
Laboratory Results
04/07/24 04/07/24
09:47 09:48
WBC 9.9
Hgb 13.8
Hct 40.5
Plt Count 328
Sodium 136
Potassium 4.0
Chloride 101
Carbon Dioxide 25
BUN 11
Creatinine 0.7
Glucose 92
Calcium 9.5
Vital Signs:
Vital Signs
Temp Pulse Resp BP Pulse Ox
98.4 F 72 18 136/86 96
04/07/24 06:48 04/07/24 06:48 04/07/24 06:48 04/07/24 06:48 04/07/24 06:48
I&O
04/06/24 04/07/24 04/08/24
06:59 06:59 06:59
Intake Total 1120 / 1120 1080 / 1080
Output Total 1275 / 1275 1100 / 1100
Balance -155 / -155 -20 / -20
[2024-04-07 16:30] VITALS: BP 109/74
[2024-04-07 19:45] VITALS: BP 103/64
[2024-04-07] MEDS: VITAMIN B1 100 MG PO (19:52)
[2024-04-07] MEDS: MELATONIN 5 MG PO (21:18)
[2024-04-07 23:32] VITALS: BP 105/67
[2024-04-08 03:48] VITALS: BP 97/62
[2024-04-08 07:35] VITALS: BP 91/54
[2024-04-08] MEDS: HEPARIN 5000 UNITS SC ×2 (09:09→20:01)
[2024-04-08] MEDS: FOLVITE 1 MG PO (09:09)
[2024-04-08] MEDS: LUMINAL 64.8 MG PO (09:13)
[2024-04-08] MEDS: VITAMIN B1 100 MG PO ×2 (09:14→20:02)
[2024-04-08 09:23] LABS: % Basophils 0.6 % (0-2); % Immature Granulocytes 0.3 % (0-0.5); % Lymphocytes 30.4 % (20.5-51.1); % Monocytes 13.4 % (1.7-9.3); % Neutrophils 52.3 % (42.2-75.2); Absolute Basophils 0.1 10^3/uL (0-0.2); Absolute Eosinophils 0.3 10^3/uL (0-0.7); Absolute Lymphocytes 2.7 10^3/uL (1.2-3.4); Absolute Monocytes 1.2 10^3/uL (0.1-0.6); Absolute Neutrophils 4.6 10^3/uL (1.4-6.5); Hematocrit 37.5 % (39.0-52.0); Hemoglobin 12.8 g/dL (13.0-18.0); Mean Corp Hgb Conc. 34.1 g/dL (33.0-37.0); Mean Corpuscular Hgb 31.4 pg (27.0-31.0); Mean Corpuscular Volume 92.1 fL (80.0-94.0); Mean Platelet Volume 9.2 fL (7.4-10.4); Nucleated Red Blood Cells % 0 % (-); Platelet Count 302 10^3/uL (130-400); Red Blood Cell Count 4.07 10^6/uL (4.70-6.10); Red Cell Dist. Width 14.1 % (11.5-14.5); White Blood Cell Count 8.9 10^3/uL (4.8-10.8)
[2024-04-08 10:45] LABS: Blood Urea Nitrogen 10 mg/dl (9-20); Calcium 8.8 mg/dl (8.4-10.2); Carbon Dioxide 23 mmol/L (22-30); Chloride 103 mmol/L (98-107); Estimated Creatinine Clearance > 125 ml/min; Glucose 89 mg/dl (70-99); Potassium 4.3 mmol/L (3.5-5.1); Sodium 135 mmol/L (135-145); eGFR > 60.00
[2024-04-08 11:28] VITALS: BP 106/70
--- NOTE | 2024-04-08 12:25 | W.PN.HOSP.TC ---
Today's Communication/Plan
-
monitor vitals
see plan
PT/OT
cw phenobarb
Discharge planning, case mgr aware
Assessment / Plan
Assessment / Plan
General: Well Developed, Well Nourished and No Apparent Distress
HEENT: NormoCephalic, Moist mucous membranes and Atraumatic
Respiratory: Clear
Cardiac: S1/S2 and Regular Rhythm; No Murmur or Rub
GI: Soft, Non Tender, Non Distended and Normal Bowel Sounds
Musculoskeletal: No Edema
Neuro: Nonfocal/grossly intact
Alcohol withdrawal
# Possible alcohol withdrawal seizure resulting in fall however cannot confirm. no further symptoms. on phenobarb
# Left facial droop which now resolved; no CVA on MRI brain
-Left hip x-ray negative
-CT head shows no acute abnormality
-Alcohol level 15
-Thiamine and folate
-Alcohol withdrawal protocol
-Phenobarbital protocol; dec to 32.4 TID to complete
follow MSAS; patient was recently discharged from alcohol rehab and he relapsed.
Left first carpometacarpal fracture
This was diagnosed in 12/15. Patient has not followed up with orthopedics outpatient
Still has a splint
Repeat wrist x-ray with stable fracture. Discussed with Dr. Lal from orthopedics, brace removed and patient is now weight based as tolerated left hand
Anxiety
Full code
DVT prophylaxis�heparin
PT/OT rec SNF
Anticipated Discharge: Today
Subjective/Interval History
-
Date of Service: April 08, 2024
denies pain
Objective Data
-
Labs:
Laboratory Results
04/08/24
09:08
WBC 8.9
Hgb 12.8 L
Hct 37.5 L
Plt Count 302
Sodium 135
Potassium 4.3
Chloride 103
Carbon Dioxide 23
BUN 10
Creatinine 0.6 L
Glucose 89
Calcium 8.8
Vital Signs:
Vital Signs
Temp Pulse Resp BP Pulse Ox
98.2 F 73 18 106/70 99
04/08/24 11:28 04/08/24 11:28 04/08/24 11:28 04/08/24 11:28 04/08/24 11:28
I&O
04/07/24 04/08/24 04/09/24
06:59 06:59 06:59
Intake Total 1080 / 1080
Output Total 1100 / 1100
Balance -20 / -20
[2024-04-08] MEDS: NSS 1000 IV (12:26)
--- NOTE | 2024-04-08 14:27 | CM ---
CM reviewed chart, met with patient bedside, discussed no beds available at [facility] able to offer patient a bed. Patient agreeable, auth initiated to [facility], call to Rhonda ([phone]), clinicals faxed to
[phone]. CM will continue to follow for all discharge planning needs.
Plan; [facility] once auth approved.
[2024-04-08 15:30] VITALS: BP 126/73
--- NOTE | 2024-04-08 18:08 | TRANSFER ---
pt being transferred to [address] [place] [address]. Report given, will move when cleaning in that room is done.
[2024-04-08 18:31] VITALS: BP 121/75
[2024-04-08] MEDS: MOTRIN 400 MG PO (20:02)
[2024-04-08] MEDS: MELATONIN 5 MG PO (21:12)
[2024-04-08] MEDS: LUMINAL 32.4 MG PO (21:12)
[2024-04-08 23:54] VITALS: BP 118/64
[2024-04-09 07:55] VITALS: BP 103/72
--- NOTE | 2024-04-09 08:32 | CM ---
CM received voicemail from [facility] [phone], auth denied by medical record retrieval specialist for skilled rehab, alf auth was given-04/15 next review 04/15 clinical due by 12:00 pm on 04/15- fax ([phone]) to auth id #[id number].
Voicemail to michael Gao at [facility] to see if they can accept with this.
Plan; awaiting confirmation from [facility] they can accept with alf auth.
[2024-04-09] MEDS: LUMINAL 32.4 MG PO ×2 (08:41→16:42)
[2024-04-09] MEDS: FOLVITE 1 MG PO (08:41)
[2024-04-09] MEDS: VITAMIN B1 100 MG PO ×2 (08:41→20:34)
[2024-04-09] MEDS: HEPARIN 5000 UNITS SC ×2 (08:42→20:34)
[2024-04-09 08:51] LABS: % Basophils 0.6 % (0-2); % Eosinophils 3.3 % (0-6); % Immature Granulocytes 0.2 % (0-0.5); % Lymphocytes 31.2 % (20.5-51.1); % Monocytes 14.3 % (1.7-9.3); % Neutrophils 50.4 % (42.2-75.2); Absolute Basophils 0.1 10^3/uL (0-0.2); Absolute Eosinophils 0.3 10^3/uL (0-0.7); Absolute Lymphocytes 2.7 10^3/uL (1.2-3.4); Absolute Monocytes 1.3 10^3/uL (0.1-0.6); Absolute Neutrophils 4.4 10^3/uL (1.4-6.5); Hematocrit 38.1 % (39.0-52.0); Hemoglobin 12.6 g/dL (13.0-18.0); Mean Corp Hgb Conc. 33.1 g/dL (33.0-37.0); Mean Corpuscular Hgb 31.3 pg (27.0-31.0); Mean Corpuscular Volume 94.8 fL (80.0-94.0); Mean Platelet Volume 9.2 fL (7.4-10.4); Nucleated Red Blood Cells % 0 % (-); Platelet Count 301 10^3/uL (130-400); Red Blood Cell Count 4.02 10^6/uL (4.70-6.10); Red Cell Dist. Width 14.2 % (11.5-14.5); White Blood Cell Count 8.8 10^3/uL (4.8-10.8)
[2024-04-09 09:18] LABS: Blood Urea Nitrogen 12 mg/dl (9-20); Calcium 8.7 mg/dl (8.4-10.2); Carbon Dioxide 26 mmol/L (22-30); Chloride 104 mmol/L (98-107); Estimated Creatinine Clearance 118 ml/min; Glucose 88 mg/dl (70-99); Potassium 4.4 mmol/L (3.5-5.1); Sodium 137 mmol/L (135-145); eGFR > 60.00
--- NOTE | 2024-04-09 11:18 | W.PN.HOSP.TC ---
Today's Communication/Plan
-
monitor vitals
see plan
dc when has placement; CM aware
last dose phenobarb
Assessment / Plan
Assessment / Plan
General: Well Developed, Well Nourished and No Apparent Distress
HEENT: NormoCephalic, Moist mucous membranes and Atraumatic
Respiratory: Clear
Cardiac: S1/S2 and Regular Rhythm; No Murmur or Rub
GI: Soft, Non Tender, Non Distended and Normal Bowel Sounds
Musculoskeletal: No Edema
Neuro: Nonfocal/grossly intact
Alcohol withdrawal
# Possible alcohol withdrawal seizure resulting in fall however cannot confirm. no further symptoms. on phenobarb
# Left facial droop which now resolved; no CVA on MRI brain
-Left hip x-ray negative
-CT head shows no acute abnormality
-Alcohol level 15
-Thiamine and folate
-Alcohol withdrawal protocol
-Phenobarbital protocol; dec to 32.4 TID to complete
follow MSAS; patient was recently discharged from alcohol rehab and he relapsed.
Left first carpometacarpal fracture
This was diagnosed in 12/15. Patient has not followed up with orthopedics outpatient
Still has a splint
Repeat wrist x-ray with stable fracture. Discussed with Dr. Lal from orthopedics, brace removed and patient is now weight based as tolerated left hand
Anxiety
Full code
DVT prophylaxis�heparin
PT/OT rec SNF. Spoke with case management social worker again and appears that Auth denied however case management social worker trying to see if patient can be excepted with correction auth
Anticipated Discharge: Today
Subjective/Interval History
-
Date of Service: April 09, 2024
Denies pain
Objective Data
-
Labs:
Laboratory Results
04/09/24
08:31
WBC 8.8
Hgb 12.6 L
Hct 38.1 L
Plt Count 301
Sodium 137
Potassium 4.4
Chloride 104
Carbon Dioxide 26
BUN 12
Creatinine 0.7
Glucose 88
Calcium 8.7
Vital Signs:
Vital Signs
Temp Pulse Resp BP Pulse Ox
97.5 F 70 18 103/72 95
04/09/24 07:55 04/09/24 07:55 04/09/24 07:55 04/09/24 07:55 04/09/24 07:55
I&O
04/08/24 04/09/24 04/10/24
06:59 06:59 06:59
Intake Total 480 / 480
Balance 480 / 480
[2024-04-09 15:07] VITALS: BP 105/64
--- NOTE | 2024-04-09 15:45 | CM ---
TC to [facility] [phone] regarding pt's denied auth and to clarify what nursing home auth is that pt has been approved for instead. Left message.
CM spoke w/ July/field representatives director at [facility]. Per July, at this time facility has no available beds today and will let CM if poss availability over the weekend.
CM will need to explore additional facilities as pt is medically stable for d/c.
Spoke w/ pt to inform of denial for skilled rehab but approved for nursing home level of care. Pt shared concerns of being homeless as pt has been residing at a hotel. Pt confirmed that he receives SS payments and prefer not to stay in hotel but to
rent a room somewhere. Pt states he does not want to go to [facility] as an option. Pt agreeable to explore another SNF under nursing home care, no preferences.
CM sent additional referrals via [facility].
Auth will need to be updated to reflect new facility. This may not be able to be completed over weekend
Updated hospitalist
Plan: SNF pending accepting facility
[2024-04-09] MEDS: MOTRIN 400 MG PO (20:34)
[2024-04-09] MEDS: MELATONIN 5 MG PO (22:07)
[2024-04-09 23:50] VITALS: BP 101/59
[2024-04-10 07:08] LABS: % Basophils 0.6 % (0-2); % Immature Granulocytes 0.3 % (0-0.5); % Lymphocytes 36.2 % (20.5-51.1); % Monocytes 12.7 % (1.7-9.3); % Neutrophils 47.2 % (42.2-75.2); Absolute Basophils 0.1 10^3/uL (0-0.2); Absolute Eosinophils 0.3 10^3/uL (0-0.7); Absolute Lymphocytes 3.2 10^3/uL (1.2-3.4); Absolute Monocytes 1.1 10^3/uL (0.1-0.6); Absolute Neutrophils 4.2 10^3/uL (1.4-6.5); Hematocrit 36.9 % (39.0-52.0); Hemoglobin 12.3 g/dL (13.0-18.0); Mean Corp Hgb Conc. 33.3 g/dL (33.0-37.0); Mean Corpuscular Hgb 31.4 pg (27.0-31.0); Mean Corpuscular Volume 94.1 fL (80.0-94.0); Mean Platelet Volume 9.5 fL (7.4-10.4); Nucleated Red Blood Cells % 0 % (-); Platelet Count 307 10^3/uL (130-400); Red Blood Cell Count 3.92 10^6/uL (4.70-6.10); Red Cell Dist. Width 14.2 % (11.5-14.5); White Blood Cell Count 8.8 10^3/uL (4.8-10.8)
[2024-04-10 07:50] VITALS: BP 83/53
[2024-04-10] MEDS: FOLVITE 1 MG PO (08:49)
[2024-04-10] MEDS: VITAMIN B1 100 MG PO ×2 (08:49→21:14)
[2024-04-10] MEDS: HEPARIN 5000 UNITS SC ×2 (08:49→21:17)
--- NOTE | 2024-04-10 12:43 | W.PN.HOSP.TC ---
Today's Communication/Plan
-
Monitor vital signs see plan
Pending placement
Assessment / Plan
Assessment / Plan
General: Well Developed, Well Nourished and No Apparent Distress
HEENT: NormoCephalic, Moist mucous membranes and Atraumatic
Respiratory: Clear
Cardiac: S1/S2 and Regular Rhythm; No Murmur or Rub
GI: Soft, Non Tender, Non Distended and Normal Bowel Sounds
Musculoskeletal: No Edema
Neuro: Nonfocal/grossly intact
Alcohol withdrawal
# Possible alcohol withdrawal seizure resulting in fall however cannot confirm. no further symptoms. Finished phenobarbital
# Left facial droop which now resolved; no CVA on MRI brain
-Left hip x-ray negative
-CT head shows no acute abnormality
-Alcohol level 15
-Thiamine and folate
-Alcohol withdrawal protocol
-Finished phenobarbital
follow MSAS; patient was recently discharged from alcohol rehab and he relapsed.
Left first carpometacarpal fracture
This was diagnosed in 12/15. Patient has not followed up with orthopedics outpatient
Still has a splint
Repeat wrist x-ray with stable fracture. Discussed with Dr. Lal from orthopedics, brace removed and patient is now weight based as tolerated left hand
Anxiety
Full code
DVT prophylaxis�heparin
PT/OT rec SNF. Spoke with manager case again and appears that Auth denied however manager case trying to see if patient can be accepted with [facility] auth
Patient is medically cleared. medication care manager aware. Pending placement
Anticipated Discharge: Today
Subjective/Interval History
-
Date of Service: April 10, 2024
Denies pain
Objective Data
-
Labs:
Laboratory Results
04/10/24
06:11
WBC 8.8
Hgb 12.3 L
Hct 36.9 L
Plt Count 307
Vital Signs:
Vital Signs
Temp Pulse Resp BP Pulse Ox
97.7 F 57 18 83/53 97
04/10/24 07:50 04/10/24 07:50 04/10/24 07:50 04/10/24 07:50 04/10/24 07:50
I&O
04/09/24 04/10/24 04/11/24
06:59 06:59 06:59
Intake Total 480 / 480 960 / 960
Balance 480 / 480 960 / 960
[2024-04-10 15:30] VITALS: BP 113/73
[2024-04-10] MEDS: MELATONIN 5 MG PO (21:14)
[2024-04-10] MEDS: MOTRIN 400 MG PO (21:14)
[2024-04-10 23:15] VITALS: BP 102/64
[2024-04-11 07:50] VITALS: BP 93/61
[2024-04-11] MEDS: VITAMIN B1 100 MG PO ×2 (08:49→19:07)
[2024-04-11] MEDS: FOLVITE 1 MG PO (08:49)
[2024-04-11] MEDS: HEPARIN 5000 UNITS SC ×2 (08:49→19:07)
--- NOTE | 2024-04-11 12:54 | W.PN.HOSP.TC ---
Today's Communication/Plan
-
Monitor vital signs see plan
Pending placement, case reviewer aware
Assessment / Plan
Assessment / Plan
General: Well Developed, Well Nourished and No Apparent Distress
HEENT: NormoCephalic, Moist mucous membranes and Atraumatic
Respiratory: Clear
Cardiac: S1/S2 and Regular Rhythm; No Murmur or Rub
GI: Soft, Non Tender, Non Distended and Normal Bowel Sounds
Musculoskeletal: No Edema
Neuro: Nonfocal/grossly intact
Alcohol withdrawal
# Possible alcohol withdrawal seizure resulting in fall however cannot confirm. no further symptoms. Finished phenobarbital
# Left facial droop which now resolved; no CVA on MRI brain
-Left hip x-ray negative
-CT head shows no acute abnormality
-Alcohol level 15
-Thiamine and folate
-Alcohol withdrawal protocol
-Finished phenobarbital
follow MSAS; patient was recently discharged from alcohol rehab and he relapsed.
Left first carpometacarpal fracture
This was diagnosed in 12/15. Patient has not followed up with orthopedics outpatient
Still has a splint
Repeat wrist x-ray with stable fracture. Discussed with Dr. Lal from orthopedics, brace removed and patient is now weight based as tolerated left hand
Anxiety
Full code
DVT prophylaxis�heparin
PT/OT rec SNF. Spoke with case reviewer again and appears that Auth denied however case reviewer trying to see if patient can be accepted with care home auth
Patient is medically cleared. net development manager aware. Pending placement
Anticipated Discharge: Today
Subjective/Interval History
-
Date of Service: April 11, 2024
Denies pain
Objective Data
-
Vital Signs:
Vital Signs
Temp Pulse Resp BP Pulse Ox
97.6 F 66 16 93/61 100
04/11/24 07:50 04/11/24 07:50 04/11/24 07:50 04/11/24 07:50 04/11/24 08:50
I&O
04/10/24 04/11/24 04/12/24
06:59 06:59 06:59
Intake Total 960 / 960 1200 / 1200
Balance 960 / 960 1200 / 1200
--- NOTE | 2024-04-11 13:09 | CM ---
As per [facility] no SNF can accept patient.
Insurance said he is back to baseline.
Spoke with Sebastián Ravi from [facility] to see patient about an inpatient Etoh rehab.
NABIL to start process of located and getting auth for EToh rehab.
PLAN Dc planning ongoing Possible inpatient ETOH rehab
[2024-04-11 15:35] VITALS: BP 108/66
[2024-04-11] MEDS: MOTRIN 400 MG PO (20:28)
[2024-04-11] MEDS: MELATONIN 5 MG PO (20:29)
[2024-04-11 23:51] VITALS: BP 102/74
[2024-04-12 07:01] VITALS: BP 88/51
[2024-04-12] MEDS: HEPARIN 5000 UNITS SC ×2 (08:28→20:03)
[2024-04-12] MEDS: FOLVITE 1 MG PO (08:28)
[2024-04-12] MEDS: VITAMIN B1 100 MG PO ×2 (08:28→20:03)
--- NOTE | 2024-04-12 11:28 | W.PN.HOSP.TC ---
Today's Communication/Plan
-
Monitor vital signs see plan
Pending placement, family preservation caseworker aware
Assessment / Plan
Assessment / Plan
General: Well Developed, Well Nourished and No Apparent Distress
HEENT: NormoCephalic, Moist mucous membranes and Atraumatic
Respiratory: Clear
Cardiac: S1/S2 and Regular Rhythm; No Murmur or Rub
GI: Soft, Non Tender, Non Distended and Normal Bowel Sounds
Musculoskeletal: No Edema, left hand not swollen
Neuro: Nonfocal/grossly intact
Alcohol withdrawal
# Possible alcohol withdrawal seizure resulting in fall however cannot confirm. no further symptoms. Finished phenobarbital
# Left facial droop which now resolved; no CVA on MRI brain
-Left hip x-ray negative
-CT head shows no acute abnormality
-Alcohol level 15
-Thiamine and folate
-Alcohol withdrawal protocol
-Finished phenobarbital
follow MSAS; patient was recently discharged from alcohol rehab and he relapsed.
Left first carpometacarpal fracture
This was diagnosed in 12/15. Patient has not followed up with orthopedics outpatient
Still has a splint on admssion
Repeat wrist x-ray with stable fracture. Discussed with Dr. Lal from orthopedics, brace removed and patient is now weight based as tolerated left hand
Chronic hypotension
asymptomatic.
Anxiety
Full code
DVT prophylaxis�heparin
PT/OT rec SNF. No SNF accepting. Await placement to inpatient detox rehab.
Patient is medically cleared. manager car aware. Pending placement
Anticipated Discharge: Today
Subjective/Interval History
-
Date of Service: April 12, 2024
states slept well overnight
no pain left hand
Objective Data
-
Vital Signs:
Vital Signs
Temp Pulse Resp BP Pulse Ox
98.1 F 58 18 88/51 100
04/12/24 07:01 04/12/24 07:01 04/12/24 07:01 04/12/24 07:01 04/12/24 07:01
I&O
04/11/24 04/12/24 04/13/24
06:59 06:59 06:59
Intake Total 1200 / 1200 900 / 900
Balance 1200 / 1200 900 / 900
[2024-04-12 14:10] VITALS: BP 141/81; PULSE 69; O2SAT 100
--- NOTE | 2024-04-12 14:13 | CM ---
Addendum entered by Marva Montiel 04/12/24 15:36:
CM spoke with Michael and NABIL; awaiting determination from [facility], but also looking at other options if [facility] is not an option. CM to continues to follow for discharge to ETOH rehab facility.
Original Note:
CM spoke with NABIL (Trav) who is working on admission to [facility]. PT Updates provided verbally to Trav and when report is entered, CM will fax to [facility] ([phone]) for review. Transport to ETOH rehab could be done by pt's
brother, or the facility. Michael left his belongings at a motel and will need to pick them up before going to rehab; his preference is for his brother to take him so he can go to the motel to get his belongings. CM suggested that Michael ask his
brother to mixing picker tender the belongings and drop them off to the hospital.
Plan: [facility] to [facility] pending acceptance
[facility]
[address], [place] [address]
Report:
[2024-04-12 15:16] VITALS: BP 106/64
[2024-04-12] MEDS: MELATONIN 5 MG PO (21:14)
[2024-04-12 23:30] VITALS: BP 105/63
[2024-04-13 08:23] VITALS: BP 115/62
[2024-04-13] MEDS: HEPARIN 5000 UNITS SC ×2 (08:57→20:11)
[2024-04-13] MEDS: FOLVITE 1 MG PO (08:57)
[2024-04-13] MEDS: VITAMIN B1 100 MG PO ×2 (08:57→20:11)
--- NOTE | 2024-04-13 08:57 | PTCARENOTE ---
Pt sleeping comfortably in bed with eye mask on
--- NOTE | 2024-04-13 10:25 | W.PN.HOSP.TC ---
Today's Communication/Plan
-
Monitor vital signs see plan
Pending placement, manager of case aware
Assessment / Plan
Assessment / Plan
General: Well Developed, Well Nourished and No Apparent Distress
HEENT: NormoCephalic, Moist mucous membranes and Atraumatic
Respiratory: Clear
Cardiac: S1/S2 and Regular Rhythm; No Murmur or Rub
GI: Soft, Non Tender, Non Distended and Normal Bowel Sounds
Musculoskeletal: No Edema, left hand not swollen
Neuro: Nonfocal/grossly intact
Alcohol withdrawal
# Possible alcohol withdrawal seizure resulting in fall however cannot confirm. no further symptoms. Finished phenobarbital
# Left facial droop which now resolved; no CVA on MRI brain
-Left hip x-ray negative
-CT head shows no acute abnormality
-Alcohol level 15
-Thiamine and folate
-Alcohol withdrawal protocol
-Finished phenobarbital
follow MSAS; patient was recently discharged from alcohol rehab and he relapsed.
Left first carpometacarpal fracture
This was diagnosed in 12/15. Patient has not followed up with orthopedics outpatient
Still has a splint on admssion
Repeat wrist x-ray with stable fracture. Dr. Gaspar discussed with Dr. Lal from orthopedics, brace removed and patient is now weight based as tolerated left hand
Chronic hypotension
asymptomatic. BP 115/62
Anxiety
Full code
DVT prophylaxis�heparin
PT/OT rec SNF. No SNF accepting. Await placement to inpatient detox rehab.
Patient is medically cleared. explosive ordnance manager aware. Pending placement
Anticipated Discharge: Today
Subjective/Interval History
-
Date of Service: April 13, 2024
resting in bed comfortably
tolerating diet
Objective Data
-
Vital Signs:
Vital Signs
Temp Pulse Resp BP Pulse Ox
98.1 F 66 18 115/62 98
04/13/24 08:23 04/13/24 08:23 04/13/24 08:23 04/13/24 08:23 04/13/24 09:25
I&O
04/12/24 04/13/24 04/14/24
06:59 06:59 06:59
Intake Total 900 / 900 480 / 480
Balance 900 / 900 480 / 480
--- NOTE | 2024-04-13 11:25 | CM ---
Addendum entered by Shaneka Gutierrez 04/13/24 16:07:
Per Trav/NABIL, [facility] is considering pt for admission. Facility requested therapy note to indicate pt is able to use the bathroom independently
Erin/OT updated note, CM provided to Trav to send to [facility].
Spoke w/ Margarette/NABIL, stated she will see pt at hospital this evening and call [facility] for determination
Original Note:
Chart reviewed for d/c planning. Per chart, NABIL is following for inpatient alcohol rehab.
CM spoke w/ Trav/NABIL promotions specialist, pt was denied at [facility]. At this time Trav will reach out to other facilities and keep CM updated.
Updated hospitalist
[2024-04-13 16:15] VITALS: BP 122/69
[2024-04-13] MEDS: MOTRIN 400 MG PO (16:45)
[2024-04-13] MEDS: MELATONIN 5 MG PO (20:49)
[2024-04-13] MEDS: TYLENOL 650 MG PO (20:49)
[2024-04-13 23:00] VITALS: BP 97/50
--- NOTE | 2024-04-14 02:35 | DOWNTIME ---
There was a [facility] [employer] Manager Downtime on 04/14/2024 from 0100 to 04/14/2023 at 0205 . Downtime documentation of patient's care, including medication administrations, has been reconciled in the electronic record per guidelines. Refer to the
patient's paper chart under the miscellaneous tab to see printed paper medication records and downtime forms.
[2024-04-14 07:49] VITALS: BP 136/80
[2024-04-14] MEDS: VITAMIN B1 100 MG PO (08:57)
[2024-04-14] MEDS: HEPARIN 5000 UNITS SC (08:57)
[2024-04-14] MEDS: FOLVITE 1 MG PO (08:57)
--- NOTE | 2024-04-14 11:13 | CM ---
Per Trav/NABIL remote sensing specialist, [facility] can accept pt for inpatient alcohol rehab. Facility will transport pt at 2 pm.
Updated hospitalist to prep d/c. Nurse updated. Per nurse, pt's hotel he was staying at lost his belongings and inquiring on clothing donations. CM advised that [facility] has donated clothes that can be provided to pt when he admits.
Plan: D/c to [facility] D&A rehab. [facility] will provide transport
--- NOTE | 2024-04-14 11:38 | W.PN.HOSP.TC ---
Today's Communication/Plan
-
Discharge to rehab
Assessment / Plan
Assessment / Plan
63-year-old male with alcohol withdrawal symptoms
Echo 11/17/2023-EF 50 to 55%, regional wall motion difficult to assess, no significant valvular disease
Denies chest pain as as OP. NO current CP
On examination awake alert oriented
Cardiovascular system S1-S2 appreciated
Chest clear to auscultation
Abdomen soft and nontender
No pedal edema
# Alcohol abuse with alcohol withdrawal seizures/ vs black out /DTs
Phenobarbital taper completed
Continue thiamine and folic acid
Patient was recently discharged from alcohol rehab and relapsed
drilling engineering manager working on placement
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
# Left first metacarpal carpal fracture diagnosed November 2023
Has not followed up with orthopedics
Has a splint
Repeat wrist x-rays stable
Dr. Gaspar discussed with Dr. Lal from orthopedics, brace removed and patient is now weight based as tolerated left hand
OP Follow up
# Abnormal EKG - No chest pain- OP Follow up with cards discussed.
# Chronic hypotension-asymptomatic
# Anxiety
# DVT prophylaxis-subcutaneous heparin
# Full code
Offered to talk to family. States that he has a brother but he is not in touch with him
Discussed with case management
Anticipated Discharge: Today
Subjective/Interval History
-
Date of Service: April 14, 2024
Objective Data
-
Vital Signs:
Vital Signs
Temp Pulse Resp BP Pulse Ox
98.1 F 64 18 136/80 98
04/14/24 07:49 04/14/24 07:49 04/14/24 07:49 04/14/24 07:49 04/14/24 09:35
I&O
04/13/24 04/14/24 04/15/24
06:59 06:59 06:59
Intake Total 480 / 480 1560 / 1560
Balance 480 / 480 1560 / 1560
--- NOTE | 2024-04-14 11:40 | W.DS.TRANS ---
Addendum entered and electronically signed by Caesar Blanchard MD 04/14/24 16:08:
Dictation- [id number]
Original Note:
DC Summary - Recruiting Specialist
-
Discharge Instructions:
Discharge Diagnosis/Procedures Ambulatory dysfunction
Alcohol withdrawal
Diet As tolerated
Activity With assistance,As tolerated
Driving Restrictions Not until seen by your Dr
Bathing Restrictions None
Instructions:
Stand-Alone Forms:
Changes to Home Medications: Yes
Discharge Medications:
DC Medications w/original date entered in [facility]
ibuprofen 200 mg tablet 400 mg PO DAILYPRN PRN mild pain 04/04/24
folic acid 1 mg tablet 1 mg PO DAILY #0 tabs 04/08/24
melatonin 5 mg tablet 5 mg PO HS #0 tabs 04/08/24
thiamine HCl (vitamin B1) 100 mg tablet 100 mg PO BID #0 tabs 04/08/24
famotidine 20 mg tablet (Pepcid) 20 mg PO DAILY while on Ibuprofen #30 tabs 04/14/24
Home Medication Changes
new
folic acid 1 mg tablet 1 mg PO DAILY #0 tabs 04/08/24
melatonin 5 mg tablet 5 mg PO HS #0 tabs 04/08/24
thiamine HCl (vitamin B1) 100 mg tablet 100 mg PO BID #0 tabs 04/08/24
famotidine 20 mg tablet (Pepcid) 20 mg PO DAILY while on Ibuprofen #30 tabs 04/14/24
Pending Results: No
[2024-04-14 13:10] VITALS: BP 109/62
== END 2024-04-14 14:00 | DRG 897 ==
LOC: 4 EAST ACU 16:19
PROVIDERS: Internal Medicine; ADMITTING PHYSICIAN Hospitalist; ATTENDING PHYSICIAN Hospitalist; EMERGENCY PHYSICIAN Emergency Medicine
DX: F10.139 Alcohol abuse with withdrawal, unspecified (principal); Z59.01 Sheltered homelessness; F41.9 Anxiety disorder, unspecified; R26.2 Difficulty in walking, not elsewhere classified; F17.290 Nicotine dependence, other tobacco product, uncomplicated; R29.810 Facial weakness; R56.9 Unspecified convulsions; Z75.1 Person awaiting admission to adequate facility elsewhere
CPT/HCPCS: 70450; 70553; 73110; 73502; 80048; 80053; 82077; 83690; 83735; 84484; 85025; 93005; 97110; 97163; 97166; 97530; 97535; 99285; 99406

== ENCOUNTER 2024-06-08 07:42 | Emergency (ER) | payer OTHER, SELFPAY ==
[2024-06-08] VITALS (8 sets, daily range): BP systolic 103–143; BP diastolic 69–107; BMI 24.5
--- NOTE | 2024-06-08 08:32 | ED.GENMED ---
History of Present Illness
General
Chief Complaint: Withdrawal Symptoms
Time Seen by Provider: 06/08/24 08:09
History of Present Illness
History of Present Illness:
64-year-old male with history of alcohol abuse presenting to the emergency department for withdrawal symptoms. Patient reports last drink was 2 days ago. Reports that he has a daily user, and recently got out of rehab 3 weeks ago. Notes some
nausea, had vomiting 3 days ago. Denies any hallucinations. Does feel tremulous and anxious. Denies chest pain or difficulty breathing. Denies fever. Denies abdominal pain. Denies any concomitant substance abuse. Denies additional acute
medical complaints.
Past History
Past History
ED Past Medical History: Psychiatric (anxiety)
ED Past Surgical History: None
Social History
Tobacco: Smoker (cigars)
Alcohol: Occasional
Drug: Marijuana
Living: with family
Phy Exam
Physical Exam
Physical Exam:
General: Well-appearing, no clinical signs of dehydration, nontoxic and in no acute distress
HEENT: protecting airway
Neck: appears supple
CV: Normal heart rate, regular rhythm
Resp: No accessory muscle use, no increased work of breathing, lungs clear to auscultation bilaterally
Abd: Soft and non-distended, no tenderness to palpation
Extremities: No deformities, no swelling
Neuro: alert, no focal neurologic deficit
: deferred
Rectal: deferred
Psych: Anxious, mildly tremulous
Skin: Intact
Scores
Withdrawal Assessment of Alcohol
Withdrawal Assessment Completed?: Yes
Nausea and Vomiting: Mild nausea with no vomiting
Tactile Disturbances: None
Tremor: Moderate, with patient's arms extended
Auditory Disturbances: Not present
Paroxysmal Sweats: No sweat visible
Visual Disturbances: Not present
Anxiety: Mild anxiety
Headache, Fullness in Head: Not present
Agitation: Normal activity
Orientation and clouding of sensorium: Oriented and can do serial additions
Total CIWA Score: 6
Alcohol Withdrawal Medication Recommendation: Equal to MSAS Score 0-4. Monitor & re-assess q2hrs, NO MEDICATION NEEDED
Course
Orders/Labs/Results
Orders:
Orders
06/08/24 08:22
Urine Drug Abuse Screen Urgent
0.9% Sodium Chloride 1000 ml [Nss] 1,000 ml IV BOLUS
Lorazepam [Ativan] 1 mg IV NOW STA
Ondansetron Injectable [Zofran] 4 mg IV NOW STA
06/08/24 08:45
Alcohol Urgent
Complete Blood Count/With Diff Urgent
Comprehensive Metabolic Panel Urgent
Abnormal Lab Results
06/08/24
08:45
RBC 3.72 L 10^6/uL
(4.70-6.10)
Hgb 11.9 L g/dL
(13.0-18.0)
Hct 34.6 L %
(39.0-52.0)
MCH 32.0 H pg
(27.0-31.0)
RDW 15.1 H %
(11.5-14.5)
Absolute Monos (auto) 1.4 H 10^3/uL
(0.1-0.6)
Monocytes % 14.7 H %
(1.7-9.3)
Creatinine 0.6 L mg/dL
(0.7-1.3)
Glucose 177 H mg/dl
(70-99)
06/08/24 08:45
06/08/24 08:45
Vital Signs
Initial and Last Documented VS:
Initial Vital Signs
Temp Pulse Resp BP Pulse Ox
97.5 F 110 20 143/107 97
06/08/24 07:54 06/08/24 07:54 06/08/24 07:54 06/08/24 07:54 06/08/24 07:54
Last Documented Vital Signs
Temp Pulse Resp BP Pulse Ox
97.5 F 67 19 103/69 94
06/08/24 07:54 06/08/24 11:15 06/08/24 11:15 06/08/24 11:00 06/08/24 11:15
MDM/Problems Addressed
MDM/Problems Addressed:
64-year-old male with history of alcohol abuse presenting for withdrawal symptoms from alcohol. Vital signs on arrival are significant for high blood pressure and tachycardia, however resolved without intervention.
On exam, patient is resting comfortably, no acute distress. He is slightly tremulous, however is awake, alert, oriented. Patient appears to be mild withdrawal. Will treat therapeutically with IV fluids and Ativan. Will consult with NABIL
regarding possible placement for rehab. Will screen with laboratory analysis. Patient does note a prior injury to his left hand, which he feels has not healed correctly. No erythema, no swelling, no warmth to the hand. Patient able to range the
hand. No neurovascular compromise.
09:10 - Patient seen by NABIL. He is requesting inpatient rehab for his hand and chronic pain issues. At this time do not feel patient qualifies for inpatient rehab, ambulatory without inpatient needs. Continue with plan for inpatient alcohol
addiction treatment
12:00 -patient excepted to a facility. Remains hemodynamically stable. Arranging transportation
*Critical Care Note
Total Time (30-74mins, 75-104mins- exclusive of procedures): Not Applicable
ED Attending Note
-
Portions of this chart may have been created with voice recognition software.� Occasional wrong word or��sound alike� substitutions may have occurred due to the inherent limitations of voice recognition software.
Discharge Plan
Departure
Prescriptions:
No Action
No Current Medications
0
Referrals:
UNKNOWN - PT DOES,NOT KNOW [Family Provider] -
Interventions
Interventions:
*Risk Screen - Suicide Last Done: 06/08/24 07:54
*General Assessment Last Done: 06/08/24 07:54
*Neglect/Abuse Screening Last Done: 06/08/24 07:54
*ED COVID-19 Vaccine History Last Done: 06/08/24 08:17
ED- Neurological Assessment Last Done: 06/08/24 08:22
ED-Psychological Assessment Last Done: 06/08/24 08:54
Discharge Date and Time
Print Language: MALDIVIAN
[2024-06-08] MEDS: ATIVAN 1 MG IV (08:46)
[2024-06-08] MEDS: NSS 1000 IV (08:47)
[2024-06-08] MEDS: ZOFRAN 4 MG IV (08:47)
[2024-06-08 08:53] LABS: % Basophils 0.7 % (0-2); % Eosinophils 1.6 % (0-6); % Immature Granulocytes 0.3 % (0-0.5); % Lymphocytes 21.6 % (20.5-51.1); % Monocytes 14.7 % (1.7-9.3); % Neutrophils 61.1 % (42.2-75.2); Absolute Basophils 0.1 10^3/uL (0-0.2); Absolute Eosinophils 0.2 10^3/uL (0-0.7); Absolute Monocytes 1.4 10^3/uL (0.1-0.6); Absolute Neutrophils 5.8 10^3/uL (1.4-6.5); Hematocrit 34.6 % (39.0-52.0); Hemoglobin 11.9 g/dL (13.0-18.0); Mean Corp Hgb Conc. 34.4 g/dL (33.0-37.0); Mean Platelet Volume 8.5 fL (7.4-10.4); Nucleated Red Blood Cells % 0 % (-); Platelet Count 245 10^3/uL (130-400); Red Blood Cell Count 3.72 10^6/uL (4.70-6.10); Red Cell Dist. Width 15.1 % (11.5-14.5); White Blood Cell Count 9.4 10^3/uL (4.8-10.8)
[2024-06-08 09:04] LABS: ALT (SGPT) 38 U/L (0-50); AST (SGOT) 46 U/L (17-59); Alkaline Phosphatase 80 U/L (38-126); Blood Urea Nitrogen 9 mg/dl (9-20); Calcium 9.3 mg/dl (8.4-10.2); Carbon Dioxide 24 mmol/L (22-30); Chloride 103 mmol/L (98-107); Estimated Creatinine Clearance > 125 ml/min; Glucose 177 mg/dl (70-99); Potassium 3.9 mmol/L (3.5-5.1); Sodium 136 mmol/L (135-145); Total Bilirubin 0.9 mg/dl (0.2-1.3); Total Protein 7.8 g/dl (6.3-8.2); eGFR > 60.00
[2024-06-08 09:05] LABS: Alcohol None Detected
[2024-06-08 12:34] LABS: Amphetamines Negative (Negative); Barbiturates Negative (Negative); Benzodiazepines Negative (Negative); Buprenorphine Negative (Negative); Cocaine Negative (Negative); Marijuana Positive (Negative); Methadone Negative (Negative); Methamphetamines Negative (Negative); Opiates Negative (Negative); Phencyclidine Negative (Negative); Tricyclic Antidepressants Positive (Negative)
== END 2024-06-08 14:00 ==
LOC: EMR 07:42
PROVIDERS: EMERGENCY PHYSICIAN Student in an Organized Health Care Education/Training Program
DX: F10.10 Alcohol abuse, uncomplicated (principal); R11.2 Nausea with vomiting, unspecified; R25.1 Tremor, unspecified; M79.642 Pain in left hand; R00.0 Tachycardia, unspecified; F41.9 Anxiety disorder, unspecified; F17.290 Nicotine dependence, other tobacco product, uncomplicated; G89.29 Other chronic pain
CPT/HCPCS: 99285; 96374; 96375; 80053; 80306; 82077; 85025